=== PATIENT | male | born 1940 | race Caucasian/White ===

== ENCOUNTER 2021-09-13 21:12 | Emergency (ER) | payer MEDICARE, SELFPAY ==
[2021-09-13 21:29] VITALS: BP 155/67; PULSE 67; RESP 16; TEMP 36.1; O2SAT 99; BMI 21.5
[2021-09-13] MEDS: Lidocaine HCl 1 % MPF 5 ML VIAL SUBCUT (22:21)
--- NOTE | 2021-09-13 22:34 | ED.GENADULT ---
HPI - General Adult General Chief complaint: Skin/Abscess/Foreign Body Stated complaint: bleeding on wound wont stop from fall Time Seen by Provider: 09/13/21 21:44 Source: patient and family () Mode of arrival: ambulatory Limitations: no limitations History of Present Illness HPI narrative: 81 years old male history of atrial fibrillation on Eliquis yesterday patient slipped and fell on a wet floor had his left arm on the sink, patient had a tears can with bleeding, patient could not stop the bleeding since yesterday was seen at an urgent care still bleeding through a pressure dressing patient came to the emergency department for further evaluation and stop the bleeding. Patient declined head injury, no headache, no blurry vision, no nausea, no vomiting. Patient still bleeding profusely from it her skin on his left arm. Related Data Allergies Allergy/AdvReac Type Severity Reaction Status Date / Time fluconazole AdvReac Rash Verified 09/13/21 21:29 Review of Systems Review of Systems: All other systems are reviewed and are negative Constitutional: Reports as per HPI and Reports no additional constitutional complaints Eyes: Reports as per HPI and Reports no additional eye complaints Reports system reviewed and no additional complaints, except as documented Cardiovascular: Reports as per HPI and Reports no additional cardiovascular complaints Respiratory: Reports as per HPI and Reports no additional respiratory complaints Gastrointestinal: Reports as per HPI and Reports no additional gastrointestinal complaints Genitourinary: Reports no additional female genitourinary complaints Musculoskeletal: Reports no additional musculoskeletal complaints Skin/Breast: Reports system reviewed and no additional complaints, except as docu Psychiatric: Reports no additional psychiatric complaints Endocrine: Reports no additional endocrine complaints Hematologic/Lymphatic: Reports no additional hematologic/lymphatic complaints Allergic/Immunologic: Reports no additional allergic/immunologic complaints Reports system reviewed and no additional complaints, except as documented and Reports Abnormal speech present [facility] Social History Social History Advance Directives: No Advance Directives Information Provided: No Physical Exam ED Vital Signs: Vital Signs - 24 hr 09/13/21 21:29 Temperature 96.9 F Pulse Rate 67 Respiratory Rate 16 Blood Pressure 155/67 H Pulse Oximetry 99 Oxygen Delivery Method Room Air BMI result Body Mass Index 21.5 Vital signs have been reviewed as appeared to be correct. Blood pressure elevated. Heart rate normal. Respiration rate normal. Temperature normal. Oxygen saturation normal. Appearance: Alert. Oriented X3. No acute distress. Head: Normal external exam. Normocephalic. Atraumatic. No Valdes signs noted. No raccoon eyes noted Eyes: PERRLA. EOMI. Conjunctiva and sclera normal. Eyelids normal. ENT: TM's Normal. Pharynx normal. Uvula midline. Moist mucous membranes. No trismus noted. No drooling noted. No muffled voice noted. Neck: Normal inspection. Neck supple. FROM. No adenopathy. Thyroid Normal. No meningeal signs. No neck mass noted. CVS: Normal heart rate and rhythm. Heart sound normal. No murmurs noted. Pulses normal throughout. Respiratory: No respiratory distress. Painless inspiration. Breath sounds normal. No wheezes/rales/rhonchi noted. Chest nontender. No accessory muscle usage noted or decreased air movement noted. Abdomen: Soft and nontender. Bowel sounds normal in all 4 quadrants. No distention noted. No organomegaly noted. No visible injury noted. Back: No CVA tenderness. Full range of motion noted. Skin: Skin warm and dry. Normal skin color. Normal skin turgor. No rashes/lesions/lacerations noted. Extremities: 1 x 1 cm skin tear with active bleeding on the dorsum aspect of the forearm just distal to the elbow. Neuro: Oriented X 3. Cranial nerve exam: II-XII are grossly intact No motor deficit. No sensory deficit. Reflexes normal. Course Course Course Narrative: 81-year-old male on Eliquis for atrial fibrillation sustained skin tear and active bleeding after day and a half after a mechanical fall, patient was GCS of 15, a normal neuro exam, no evidence of head injury, no signs of intracranial bleed. The left forearm active bleeding was successfully stopped by 1 suture. Patient was instructed to return if there were to his PCP or to the ED for suture removal in 10 days. Procedures Laceration Laceration 1: Site: upper extremity Side (If applicable): left Size (cm): 1 Description: flap Depth: simple, single layer Local Anesthetic: lidocaine 1% Amount of anesthesia used (mL): 3 Pre-repair: wound explored Skin layer closed with: nylon Size (cm): 3-0 Number of sutures: 1 Technique: simple, interrupted Discharge Plan Discharge Clinical Impression: Laceration of forearm, left, Accident due to mechanical fall without injury Patient Disposition: Home, Self-Care Instructions: Laceration (ED) Additional Instructions: Suture removal in 10 days either return to the ED or at the PCP office Referrals: Jem Glynn PA [Primary Care Provider] -
== END 2021-09-13 23:30 | disposition home or self-care (01) ==
PROVIDERS: Emergency Provider Emergency Medicine; PCP Physician Assistant Medical
DX: S51.812A Laceration without foreign body of left forearm, initial encounter (principal); I48.91 Unspecified atrial fibrillation; Z79.01 Long term (current) use of anticoagulants; W01.198A Fall on same level from slipping, tripping and stumbling with subsequent striking against other object, initial encounter; Y93.9 Activity, unspecified; Y92.9 Unspecified place or not applicable; Y99.9 Unspecified external cause status
CPT/HCPCS: 12001; 99282; 99284

== ENCOUNTER 2022-05-15 11:48 | Inpatient (IN) | payer MEDICARE, SELFPAY ==
[2022-05-15] VITALS (7 sets, daily range): BP systolic 115–143; BP diastolic 59–88; PULSE 66–80; RESP 13–24; TEMP 36.1–36.7; O2SAT 78–100; BMI 27.0
--- NOTE | ~2022-05-15 | XR_ITS ---
EXAMINATION: XR CHEST CLINICAL INFORMATION: Follow-up post thoracentesis. COMPARISON: 05/17/2022 TECHNIQUE: Frontal view of the chest was obtained. FINDINGS: Small left pleural effusion with mild left basilar atelectasis. No appreciable right-sided effusion or pneumothorax status post thoracentesis. Underlying airspace consolidation. Cardiac meniscal contours are normal. Pulmonary vasculature is unremarkable. No acute osseous findings. Degenerative spondylosis in the thoracic spine. Osteoarthritis is present in the acromioclavicular and glenohumeral joints. XR/XR chest 1V IMPRESSION: Small left pleural effusion with mild left basilar atelectasis. No pneumothorax.
--- NOTE | ~2022-05-15 | CT_ITS ---
EXAMINATION: CT CHEST WITHOUT CONTRAST CLINICAL INFORMATION: Fluid retention with pleural effusion COMPARISON: CT abdomen and pelvis 09/20/2021 TECHNIQUE: Multidetector volumetric CT imaging of the chest was done. Axial MIP volume rendering provided. Sagittal and coronal reformatted images were obtained. This CT examination was performed using dose optimization techniques as appropriate, variously including the following: *Automated exposure control *Adjustment of mA and/or kV according to patient size (this includes techniques or standardized protocols for targeted exams where dose is matched to indication/reason for exam; i.e. extremities or head) *Use of iterative reconstruction technique DLP: 301 mGy-cm FINDINGS: LUNGS AND PLEURA: Moderate-sized right pleural effusion with compressive atelectasis of the right lower lobe is present along with small to moderate-sized left pleural effusion and left lower lobe atelectasis. No suspicious lung masses are seen. Small calcified granuloma present on the left. MEDIASTINUM: Heart size within normal limits. No pericardial effusion. Some small mediastinal lymph nodes are seen probably reactive with the largest at the AP window measuring 0.9 cm (3:23). No pericardial effusion CORONARY ARTERY CALCIFICATION: Severe triple-vesselr AXILLA: No lymphadenopathy. UPPER ABDOMEN: At least 6 hepatic cysts are present. No bile duct dilatation or worrisome liver masses. A gastrostomy tube is present in good position in the. A partially visualized left renal Bosniak class I cyst is present which needs no additional imaging or follow-up. OSSEOUS STRUCTURES: Unremarkable. Mild degenerative changes throughout. CT/CT chest wo IV con IMPRESSION: Bilateral pleural effusions, right greater than left with associated compressive atelectasis. Fleischner guidelines were followed.
--- NOTE | ~2022-05-15 | XR_ITS ---
EXAMINATION: XR CHEST CLINICAL INFORMATION: Status post right thoracentesis COMPARISON: CT scan of May 15, 2022 TECHNIQUE: AP portable view of the chest was obtained. FINDINGS: No significant right pleural fluid remains. There is minimal blunting of the right costophrenic angle. There is a small left pleural effusion present. No pneumothorax identified. Heart normal size. No evidence of pulmonary edema. XR/XR chest 1V IMPRESSION: No postprocedure pneumothorax status post right thoracentesis. Small left pleural effusion.
--- NOTE | ~2022-05-15 | US_ITS ---
EXAMINATION: ULTRASOUND-GUIDED RIGHT THORACENTESIS CLINICAL INFORMATION: Right pleural effusion COMPARISON: CT scan of May 15, 2022 TECHNIQUE: Ultrasound-guided right thoracentesis FINDINGS: Informed consent was obtained from the patient prior to the procedure. During this process, the procedure and potential alternatives were explained, along with the intended outcome and benefits. The risks of the procedure, as well as the risk of not doing the procedure, were discussed. The patient was given the opportunity to ask questions regarding the procedure and appeared competent to make medical decisions. A signed consent form which documents this discussion was placed in the medical record. Using sterile technique and ultrasound guidance from a posterior approach a 5 [place] Yueh catheter was directed into the right pleural space and a total of 1.6 L of clear yellow fluid removed. Patient tolerated procedure without difficulty. Samples were sent for laboratory studies. US/US thoracentesis IMPRESSION: Right thoracentesis with removal of 1.6 L of clear yellow fluid.
--- NOTE | 2022-05-15 11:58 | ED.GENADULT ---
HPI - General Adult General Chief complaint: General Medical <MOODY Macdonald - Last Filed: 05/15/22 12:13> Stated complaint: fluid in lungs, heart failure <MOODY Macdonald - Last Filed: 05/15/22 12:13> Time Seen by Provider: 05/15/22 12:16 <MOODY Macdonald - Last Filed: 05/15/22 12:13> Source: patient and family () <MOODY Altman - Last Filed: 05/15/22 17:19> Mode of arrival: wheelchair <MOODY Altman - Last Filed: 05/15/22 17:19> Limitations: no limitations <MOODY Altman - Last Filed: 05/15/22 17:19> History of Present Illness HPI narrative: 82 [id number] with pmHx of CHF, Atrial Fibrillation who presents from home c/o sob and weight gain. His spouse reports recent visit with PCP regarding weight gain and SOB d/t heart failure, who ordered chest CT. Called today for concern of pleural effusion and possible need for thoracentesis. Pt endorses SOB and 10 lb weight gain. Denies chest pain, palpitations, fever, recent sick contacts. Patient's states that the patient is not usually on oxygen. Patient's states that the patient is on lasix and eliquis. <MOODY Altman - Last Filed: 05/15/22 17:19> Onset (ago): day(s) <MOODY Altman - Last Filed: 05/15/22 17:19> Severity: moderate <MOODY Altman - Last Filed: 05/15/22 17:19> Severity scale (1-10): 4 <MOODY Altman - Last Filed: 05/15/22 17:19> Relieving factors: none <MOODY Altman - Last Filed: 05/15/22 17:19> Exacerbating factors: none <MOODY Altman - Last Filed: 05/15/22 17:19> Associated symptoms: shortness of breath <MOODY Altman - Last Filed: 05/15/22 17:19> Treatments prior to arrival: none <MOODY Altman - Last Filed: 05/15/22 17:19> Related Data Home medications: Home Medications Medication Instructions Recorded Confirmed apixaban 5 mg tablet (Eliquis) 1 tab PO BID 05/15/22 05/15/22 furosemide 20 mg tablet 1 tab PO DAILY 05/15/22 05/15/22 metformin 500 mg tablet 2 tab PO BID 05/15/22 05/15/22 simvastatin 20 mg tablet 1 tab PO BEDTIME 05/15/22 05/15/22 <MOODY Macdonald - Last Filed: 05/15/22 12:13> Allergies/adverse reactions: Allergies Allergy/AdvReac Type Severity Reaction Status Date / Time fluconazole AdvReac Rash Verified 09/13/21 21:29 <MOODY Macdonald Last Filed: 05/15/22 12:13> Review of Systems Constitutional: Constitutional: Reports no additional constitutional complaints and Reports weight gain <MOODY Altman Last Filed: 05/15/22 17:19> Eyes: Eyes: Reports no additional eye complaints, Denies blurry vision, Denies change in vision, Denies diplopia, Denies eye discharge, Denies loss of vision and Denies eye pain <MOODY Altman Last Filed: 05/15/22 17:19> ENT: Denies dizziness <MOODY Altman Last Filed: 05/15/22 17:19> Cardiovascular: Cardiovascular: Reports no additional cardiovascular complaints, Denies chest pain, Reports leg edema, Denies lightheadedness, Denies Loss of Consciousness and Reports dyspnea <MOODY Altman Last Filed: 05/15/22 17:19> Respiratory: Respiratory: Reports dyspnea <MOODY Altman Last Filed: 05/15/22 17:19> Gastrointestinal: Gastrointestinal: Reports no additional gastrointestinal complaints, Denies abdominal pain, Denies melena, Denies hematochezia, Denies change in bowel habits and Denies change in stool character <MOODY Altman Last Filed: 05/15/22 17:19> Genitourinary: Genitourinary: Reports no additional male genitourinary complaints, Denies hematuria, Denies oliguria, Denies difficulty urinating, Denies dysuria, Denies urinary frequency, Denies urinary hesitancy, Denies urinary incontinence and Denies urinary urgency <MOODY Altman - Last Filed: 05/15/22 17:19> Musculoskeletal: Musculoskeletal: Reports no additional musculoskeletal complaints, Denies numbness and Denies tingling <MOODY Altman - Last Filed: 05/15/22 17:19> Neurologic: Denies dizziness, Denies loss of vision, Denies numbness and Denies tingling <MOODY Altman - Last Filed: 05/15/22 17:19> Psychiatric: Psychiatric: Reports no additional psychiatric complaints <MOODY Altman - Last Filed: 05/15/22 17:19> Endocrine: Endocrine: Reports no additional endocrine complaints <MOODY Altman - Last Filed: 05/15/22 17:19> Hematologic/Lymphatic: Hematologic/Lymphatic: Reports no additional hematologic/lymphatic complaints <MOODY Altman - Last Filed: 05/15/22 17:19> Allergic/Immunologic: Allergic/Immunologic: Reports no additional allergic/immunologic complaints <MOODY Altman - Last Filed: 05/15/22 17:19> [facility] Past Medical History Attestation statement: The following information was validated with the patient. (all information validated with the patient's ) <MOODY Altman - Last Filed: 05/15/22 17:19> Source: old records reviewed, obtained from family (patient's ) and nursing notes reviewed <MOODY Altman - Last Filed: 05/15/22 17:19> Medical History: Medical History Atrial fibrillation Diabetes mellitus Hyperlipidemia Throat cancer <MOODY Macdonald - Last Filed: 05/15/22 12:13> Surgical History: Surgical History Gastrostomy in place <MOODY Macdonald - Last Filed: 05/15/22 12:13> Social History Social History: Social History Alcohol intake: unknown Smoked in Last 30 Days: No Advance Directives: No <MOODY Macdonald - Last Filed: 05/15/22 12:13> Physical Exam ED Vital Signs: Vital Signs - 24 hr 05/15/22 11:57 05/15/22 12:17 05/15/22 15:16 Temperature 97.0 F Pulse Rate 66 72 66 Respiratory Rate 20 24 H 18 Blood Pressure 122/62 143/72 H 125/65 Pulse Oximetry 78 L 100 98 Oxygen Delivery Method Room Air Nasal Cannula Nasal Cannula Oxygen Flow Rate 5 2 BMI result Body Mass Index 27.0 <MOODY Macdonald - Last Filed: 05/15/22 12:13> Vital Signs - 24 hr 05/15/22 11:57 05/15/22 12:17 05/15/22 15:16 Temperature 97.0 F Pulse Rate 66 72 66 Respiratory Rate 20 24 H 18 Blood Pressure 122/62 143/72 H 125/65 Pulse Oximetry 78 L 100 98 Oxygen Delivery Method Room Air Nasal Cannula Nasal Cannula Oxygen Flow Rate 5 2 BMI result Body Mass Index 27.0 <MOODY Altman - Last Filed: 05/15/22 17:19> Const General: cooperative, no acute distress, alert and awake <MOODY Altman - Last Filed: 05/15/22 17:19> Nutritional Appearance: well nourished <MOODY Altman - Last Filed: 05/15/22 17:19> Orientation/consciousness: patient oriented x3 <MOODY Altman - Last Filed: 05/15/22 17:19> Limitations: no limitations <MOODY Altman - Last Filed: 05/15/22 17:19> HENNC Head: Yes normal to inspection and Yes atraumatic <MOODY Altman - Last Filed: 05/15/22 17:19> Ears: hearing grossly normal bilaterally and external ears normal <MOODY Altman - Last Filed: 05/15/22 17:19> General nose exam: Normal external nose present, no nasal discharge noted and no epistaxis <MOODY Altman - Last Filed: 05/15/22 17:19> Face and sinus: Yes normal facial exam, No abrasion and No laceration <MOODY Altman - Last Filed: 05/15/22 17:19> Mouth: Normal oral and palatal mucosa present, no drooling and no muffled voice <Gretel Finnegan [place] - Last Filed: 05/15/22 17:19> Eyes General: appearance normal, both eyes and all related structures <Gretel Finnegan SD - Last Filed: 05/15/22 17:19> Periorbital: periorbital findings normal <Gretel Finnegan SD - Last Filed: 05/15/22 17:19> Eyelids: Yes eyelids normal <Gretel Finnegan SD - Last Filed: 05/15/22 17:19> Conjunctivae: conjunctivae normal <Gretel Finnegan SD - Last Filed: 05/15/22 17:19> Pupils: Equal, round and reactive pupils present <Gretel Finnegan SD - Last Filed: 05/15/22 17:19> EOM: EOMs intact bilaterally <Gretel Finnegan SD - Last Filed: 05/15/22 17:19> Neck Neck: Yes normal visual inspection, Yes full ROM and Yes no lymphadenopathy <Gretel Finnegan SD - Last Filed: 05/15/22 17:19> Chest Chest palpation & inspection: normal inspection of the chest <Gretel Finnegan [facility] Last Filed: 05/15/22 17:19> Resp Effort & Inspection: normal respiratory effort and able to speak in complete sentences <Gretel Finnegan SD - Last Filed: 05/15/22 17:19> Auscultation: diminished lung sounds on the left and bronchial breath sounds on the right <Gretel Finnegan SD - Last Filed: 05/15/22 17:19> Cardio Palpation: normal PMI <Gretel Finnegan SD - Last Filed: 05/15/22 17:19> Rate: regular rate <Gretel Finnegan SD - Last Filed: 05/15/22 17:19> GI Inspection: Yes normal to inspection <Gretel Finnegan [facility] Last Filed: 05/15/22 17:19> Palpation (GI): Soft to palpation, not firm, nontender, no guarding and not rigid <Gretel Finnegan [place] - Last Filed: 05/15/22 17:19> General: Yes no CVA tenderness <Gretel Finnegan SD - Last Filed: 05/15/22 17:19> Back/Spine/Pelvis Back: no CVA tenderness <Gretel Perealuis f PA - Last Filed: 05/15/22 17:19> Cervical Spine: normal cervical lordosis and cervical ROM normal <Gretel Perealuis f PA - Last Filed: 05/15/22 17:19> Thoracic/Lumbar Spine: thoracic and lumbar spine normal to inspection <Gretel Finnegan PA - Last Filed: 05/15/22 17:19> Neuro General: patient oriented x3 and moves all extremities <Gretel Perealuis f PA - Last Filed: 05/15/22 17:19> Cranial nerves: Yes Equal, round and reactive pupils present <Gretel Perealuis f PA - Last Filed: 05/15/22 17:19> Cognition (Neuro): normal cognition <Gretel Perealuis f PA - Last Filed: 05/15/22 17:19> Motor exam (neuro): 5/5 motor strength present throughout <Gretel Perealuis f PA - Last Filed: 05/15/22 17:19> Sensory Exam: Normal double simultaneous stimulation for sensation <Greetl Perealuis f PA - Last Filed: 05/15/22 17:19> Coordination: [id number] test normal <Gretel Perealuis f PA - Last Filed: 05/15/22 17:19> Extrem General: Yes full ROM and Yes capillary refill normal <Gretel Perealuis f PA - Last Filed: 05/15/22 17:19> Right upper extremity: edema <Gretel Perealuis f PA - Last Filed: 05/15/22 17:19> Left upper extremity: edema <Gretel Perealuis f PA - Last Filed: 05/15/22 17:19> Psych Appearance: grossly normal <Gretel Perealuis f PA - Last Filed: 05/15/22 17:19> Mental Status: mental status grossly normal <Gretel Perealuis f PA - Last Filed: 05/15/22 17:19> Affect: normal affect <Gretel Perealuis f PA - Last Filed: 05/15/22 17:19> Attitude: cooperative <Gretel Perealuis f PA - Last Filed: 05/15/22 17:19> Thought process: Normal thought process present <Gretel Sivan PA - Last Filed: 05/15/22 17:19> Thought content: Normal thought content present <MOODY Altman - Last Filed: 05/15/22 17:19> Insight: Good insight present (Psych) <MOODY Altman - Last Filed: 05/15/22 17:19> Course Course Course Narrative: RME: 82 y/o M, hx of throat cancer s/p radiation in 2015, dysphasia s/p PEG, hx of aspiration pneumonia in Mar 2022, ramesh juarez on Eliis presents for evaluation of large right lung effusion, worsening ALEXANDER and weight gain (30lbs in 2 months). Reported BNP was 1000, already on oral lasix. [place] is supposed to send over CT scan that was performed yesterday. Diminished lung sounds. O2 sat 78% on RA, but appears well in no acute distress. 3+ pitting edema to BLE. Labs, chest x-ray, and EKG ordered. Patient transferred into the main ED for further treatment. Anticipated admission. <MOODY Macdonald - Last Filed: 05/15/22 12:13> Medications Administered Generic Name Dose Route Start Last Admin Trade Name Freq PRN Reason Stop Dose Admin Insulin Human Lispro 0 unit 05/15/22 16:30 05/15/22 16:12 Insulin Lispro 100 Unit/Ml 3 Ml Vial SUBCUT Not Given QIDACHS [facility] Protocol Discontinued Medications Generic Name Dose Route Start Last Admin Trade Name Freq PRN Reason Stop Dose Admin Furosemide 80 mg 05/15/22 12:37 05/15/22 13:06 Furosemide 100 Mg/10 Ml Vial IVPUSH 05/15/22 12:38 80 mg ONCE ONE Administration Protocol <MOODY Macdonald - Last Filed: 05/15/22 12:13> Medications Administered Generic Name Dose Route Start Last Admin Trade Name Freq PRN Reason Stop Dose Admin Insulin Human Lispro 0 unit 05/15/22 16:30 05/15/22 16:12 Insulin Lispro 100 Unit/Ml 3 Ml Vial SUBCUT Not Given QIDACHS [facility] Protocol Discontinued Medications Generic Name Dose Route Start Last Admin Trade Name Freq PRN Reason Stop Dose Admin Furosemide 80 mg 05/15/22 12:37 05/15/22 13:06 Furosemide 100 Mg/10 Ml Vial IVPUSH 05/15/22 12:38 80 mg ONCE ONE Administration Protocol <MOODY Altman - Last Filed: 05/15/22 17:19> Medical Decision Making Medical Decision Making [facility] Narrative: Patient is an 82 year old assigned male at with a history of atrial fib on eliquis and throat cancer presenting to the emergency department today with weight gain and shortness of breath. Patient's physical exam showed edema, dyspnea, and bilateral decreased breath sounds bilaterally. Patient was intitially at 76% on room air and was placed on 5 liters of oxygen via nasal cannula which increased his saturation to 100%. Patient's blood work showed an elevated potassium of 5.5, CR of 1.62, BNP of 1,365, and an initial trop of 27.1 with a repeat of 30.4. Patient's EKG was unremarkable. Patient's chest CT showed bilateral pleural effusions. Patient was given IV lasix. I spoke to the hospitalist team who agreed to admission. I explained my physical exam findings as well as all test results to the patient and the patient's . I answered all questions asked by the patient and the patient's . Patient and the patient's verbalized agreement and understanding with this treatment plan and admission. <MOODY Altman - Last Filed: 05/15/22 17:19> Differential Diagnosis Differential Diagnoses: The differential diagnosis associated with the presentation includes <MOODY Altman - Last Filed: 05/15/22 17:19> CHF exacerbation <MOODY Altman - Last Filed: 05/15/22 17:19> Consult Healthcare Provider Management of the patient was discussed with: Hospitalist (agreed to admission) <MOODY Altman - Last Filed: 05/15/22 17:19> Lab Data [facility] Lab Attestation statement: I reviewed the patient's lab results. <MOODY Altman - Last Filed: 05/15/22 17:19> Result Diagrams: 05/15/22 12:26 05/15/22 12:26 <MOODY Macdonald - Last Filed: 05/15/22 12:13> Labs: Lab Results 05/15/22 05/15/22 05/15/22 Range/Units 12:26 12:26 12:26 WBC 5.3 (4.8-10.8) X10*3/uL RBC 4.58 L (4.60-5.80) X10*6/uL Hgb 12.5 L (14.0-18.0) g/dl Hct 42.6 (42.0-52.0) % MCV 93.0 (80.0-98.0) fL MCH 27.3 (27.0-33.0) pg MCHC 29.3 L (31.0-36.0) g/dl RDW 17.8 H (11.0-16.0) % Plt Count 279 (160-400) X10*3/uL MPV 11.7 (9.4-12.4) fL Immature Gran % (Auto) 0.4 (0.0-0.4) % Neut % (Auto) 83.5 H (45-73) % Lymph % (Auto) 5.3 L (20-40) % [place] % (Auto) 9.8 (2-11) % Eos % (Auto) 0.6 (0-4) % Baso % (Auto) 0.4 (0-2) % Lymph # (Auto) 0.3 L (1.2-4.9) X10*3/uL [place] # (Auto) 0.5 (0.1-1.2) X10*3/uL Eos # (Auto) 0.0 (0.0-0.4) X10*3/uL Baso # (Auto) 0.0 (0.0-0.2) X10*3/uL Abs Immat Gran (auto) 0.02 (0.00-0.03) X10*3/uL Absolute Neuts (auto) 4.5 (2.0-8.3) x10*3/uL Absolute Nucleated RBC 0.000 (0.0-0.012) X10*3/uL Nucleated RBC % (auto) 0.0 (0.0-0.2) /100WBC PT (10.0-13.1) SEC INR (0.9-1.1) APTT (26.0-36.4) SEC VBG pH (7.32-7.43) VBG pCO2 mmHg VBG pO2 mmHg VBG HCO3 (22-26) mmol/L VBG O2 Saturation % VBG Base Excess mmol/L Sodium (135-145) mmol/L Potassium (3.3-5.1) mmol/L Chloride (96-108) mmol/L Carbon Dioxide (22-29) mmol/L Anion Gap (12-20) BUN (9-16) mg/dL Creatinine (0.5-1.4) mg/dL Estim Creat Clear Calc Estimated GFR Random Glucose (60-115) mg/dL Calcium (8.4-10.2) mg/dL Magnesium (1.6-2.6) mg/dL Total Bilirubin (0.0-1.0) mg/dL Direct Bilirubin (0.0-0.5) mg/dL AST (5-37) U/L ALT (0-40) U/L Alkaline Phosphatase (39-117) U/L Troponin I High Sens (<3.5-35.0) ng/L B-Natriuretic Peptide 1365 H (<100) pg/mL Total Protein (6.5-8.0) g/dL Albumin (3.5-5.0) g/dL COVID-19 (VIRGIL) Negative (Negative) COVID-19 Clin Com See Note 05/15/22 05/15/22 05/15/22 Range/Units 12:26 12:26 12:39 WBC (4.8-10.8) X10*3/uL RBC (4.60-5.80) X10*6/uL Hgb (14.0-18.0) g/dl Hct (42.0-52.0) % MCV (80.0-98.0) fL MCH (27.0-33.0) pg MCHC (31.0-36.0) g/dl RDW (11.0-16.0) % Plt Count (160-400) X10*3/uL MPV (9.4-12.4) fL Immature Gran % (Auto) (0.0-0.4) % Neut % (Auto) (45-73) % Lymph % (Auto) (20-40) % [place] % (Auto) (2-11) % Eos % (Auto) (0-4) % Baso % (Auto) (0-2) % Lymph # (Auto) (1.2-4.9) X10*3/uL [place] # (Auto) (0.1-1.2) X10*3/uL Eos # (Auto) (0.0-0.4) X10*3/uL Baso # (Auto) (0.0-0.2) X10*3/uL Abs Immat Gran (auto) (0.00-0.03) X10*3/uL Absolute Neuts (auto) (2.0-8.3) x10*3/uL Absolute Nucleated RBC (0.0-0.012) X10*3/uL Nucleated RBC % (auto) (0.0-0.2) /100WBC PT 20.7 H (10.0-13.1) SEC INR 1.8 H (0.9-1.1) APTT 34.6 (26.0-36.4) SEC VBG pH (7.32-7.43) VBG pCO2 mmHg VBG pO2 mmHg VBG HCO3 (22-26) mmol/L VBG O2 Saturation % VBG Base Excess mmol/L Sodium (135-145) mmol/L Potassium (3.3-5.1) mmol/L Chloride (96-108) mmol/L Carbon Dioxide (22-29) mmol/L Anion Gap (12-20) BUN (9-16) mg/dL Creatinine (0.5-1.4) mg/dL Estim Creat Clear Calc Estimated GFR Random Glucose (60-115) mg/dL Calcium (8.4-10.2) mg/dL Magnesium (1.6-2.6) mg/dL Total Bilirubin (0.0-1.0) mg/dL Direct Bilirubin (0.0-0.5) mg/dL AST (5-37) U/L ALT (0-40) U/L Alkaline Phosphatase (39-117) U/L Troponin I High Sens 27.1 (<3.5-35.0) ng/L B-Natriuretic Peptide (<100) pg/mL Total Protein (6.5-8.0) g/dL Albumin (3.5-5.0) g/dL COVID-19 (VIRGIL) (Negative) COVID-19 Clin Com 05/15/22 05/15/22 05/15/22 Range/Units 12:44 13:04 14:15 WBC (4.8-10.8) X10*3/uL RBC (4.60-5.80) X10*6/uL Hgb (14.0-18.0) g/dl Hct (42.0-52.0) % MCV (80.0-98.0) fL MCH (27.0-33.0) pg MCHC (31.0-36.0) g/dl RDW (11.0-16.0) % Plt Count (160-400) X10*3/uL MPV (9.4-12.4) fL Immature Gran % (Auto) (0.0-0.4) % Neut % (Auto) (45-73) % Lymph % (Auto) (20-40) % [place] % (Auto) (2-11) % Eos % (Auto) (0-4) % Baso % (Auto) (0-2) % Lymph # (Auto) (1.2-4.9) X10*3/uL [place] # (Auto) (0.1-1.2) X10*3/uL Eos # (Auto) (0.0-0.4) X10*3/uL Baso # (Auto) (0.0-0.2) X10*3/uL Abs Immat Gran (auto) (0.00-0.03) X10*3/uL Absolute Neuts (auto) (2.0-8.3) x10*3/uL Absolute Nucleated RBC (0.0-0.012) X10*3/uL Nucleated RBC % (auto) (0.0-0.2) /100WBC PT (10.0-13.1) SEC INR (0.9-1.1) APTT (26.0-36.4) SEC VBG pH 7.44 H (7.32-7.43) VBG pCO2 49 mmHg VBG pO2 47 mmHg VBG HCO3 34 H (22-26) mmol/L VBG O2 Saturation 69.0 % VBG Base Excess 8.7 mmol/L Sodium 135 (135-145) mmol/L Potassium 5.5 H (3.3-5.1) mmol/L Chloride 92 L (96-108) mmol/L Carbon Dioxide 31 H (22-29) mmol/L Anion Gap 18 (12-20) BUN 70 H (9-16) mg/dL Creatinine 1.62 H (0.5-1.4) mg/dL Estim Creat Clear Calc 35.6 Estimated GFR 41 Random Glucose 158 H (60-115) mg/dL Calcium 8.8 (8.4-10.2) mg/dL Magnesium 1.9 (1.6-2.6) mg/dL Total Bilirubin 1.1 H (0.0-1.0) mg/dL Direct Bilirubin 0.5 (0.0-0.5) mg/dL AST 20 (5-37) U/L ALT 13 (0-40) U/L Alkaline Phosphatase 88 (39-117) U/L Troponin I High Sens 30.4 (<3.5-35.0) ng/L B-Natriuretic Peptide (<100) pg/mL Total Protein 6.1 L (6.5-8.0) g/dL Albumin 3.0 L (3.5-5.0) g/dL COVID-19 (VIRGIL) (Negative) COVID-19 Clin Com <MOODY Macdonald - Last Filed: 05/15/22 12:13> Lab Results 05/15/22 05/15/22 05/15/22 Range/Units 12:26 12:26 12:26 WBC 5.3 (4.8-10.8) X10*3/uL RBC 4.58 L (4.60-5.80) X10*6/uL Hgb 12.5 L (14.0-18.0) g/dl Hct 42.6 (42.0-52.0) % MCV 93.0 (80.0-98.0) fL MCH 27.3 (27.0-33.0) pg MCHC 29.3 L (31.0-36.0) g/dl RDW 17.8 H (11.0-16.0) % Plt Count 279 (160-400) X10*3/uL MPV 11.7 (9.4-12.4) fL Immature Gran % (Auto) 0.4 (0.0-0.4) % Neut % (Auto) 83.5 H (45-73) % Lymph % (Auto) 5.3 L (20-40) % [place] % (Auto) 9.8 (2-11) % Eos % (Auto) 0.6 (0-4) % Baso % (Auto) 0.4 (0-2) % Lymph # (Auto) 0.3 L (1.2-4.9) X10*3/uL [place] # (Auto) 0.5 (0.1-1.2) X10*3/uL Eos # (Auto) 0.0 (0.0-0.4) X10*3/uL Baso # (Auto) 0.0 (0.0-0.2) X10*3/uL Abs Immat Gran (auto) 0.02 (0.00-0.03) X10*3/uL Absolute Neuts (auto) 4.5 (2.0-8.3) x10*3/uL Absolute Nucleated RBC 0.000 (0.0-0.012) X10*3/uL Nucleated RBC % (auto) 0.0 (0.0-0.2) /100WBC PT (10.0-13.1) SEC INR (0.9-1.1) APTT (26.0-36.4) SEC VBG pH (7.32-7.43) VBG pCO2 mmHg VBG pO2 mmHg VBG HCO3 (22-26) mmol/L VBG O2 Saturation % VBG Base Excess mmol/L Sodium (135-145) mmol/L Potassium (3.3-5.1) mmol/L Chloride (96-108) mmol/L Carbon Dioxide (22-29) mmol/L Anion Gap (12-20) BUN (9-16) mg/dL Creatinine (0.5-1.4) mg/dL Estim Creat Clear Calc Estimated GFR Random Glucose (60-115) mg/dL Calcium (8.4-10.2) mg/dL Magnesium (1.6-2.6) mg/dL Total Bilirubin (0.0-1.0) mg/dL Direct Bilirubin (0.0-0.5) mg/dL AST (5-37) U/L ALT (0-40) U/L Alkaline Phosphatase (39-117) U/L Troponin I High Sens (<3.5-35.0) ng/L B-Natriuretic Peptide 1365 H (<100) pg/mL Total Protein (6.5-8.0) g/dL Albumin (3.5-5.0) g/dL COVID-19 (VIRGIL) Negative (Negative) COVID-19 Clin Com See Note 05/15/22 05/15/22 05/15/22 Range/Units 12:26 12:26 12:39 WBC (4.8-10.8) X10*3/uL RBC (4.60-5.80) X10*6/uL Hgb (14.0-18.0) g/dl Hct (42.0-52.0) % MCV (80.0-98.0) fL MCH (27.0-33.0) pg MCHC (31.0-36.0) g/dl RDW (11.0-16.0) % Plt Count (160-400) X10*3/uL MPV (9.4-12.4) fL Immature Gran % (Auto) (0.0-0.4) % Neut % (Auto) (45-73) % Lymph % (Auto) (20-40) % [place] % (Auto) (2-11) % Eos % (Auto) (0-4) % Baso % (Auto) (0-2) % Lymph # (Auto) (1.2-4.9) X10*3/uL [place] # (Auto) (0.1-1.2) X10*3/uL Eos # (Auto) (0.0-0.4) X10*3/uL Baso # (Auto) (0.0-0.2) X10*3/uL Abs Immat Gran (auto) (0.00-0.03) X10*3/uL Absolute Neuts (auto) (2.0-8.3) x10*3/uL Absolute Nucleated RBC (0.0-0.012) X10*3/uL Nucleated RBC % (auto) (0.0-0.2) /100WBC PT 20.7 H (10.0-13.1) SEC INR 1.8 H (0.9-1.1) APTT 34.6 (26.0-36.4) SEC VBG pH (7.32-7.43) VBG pCO2 mmHg VBG pO2 mmHg VBG HCO3 (22-26) mmol/L VBG O2 Saturation % VBG Base Excess mmol/L Sodium (135-145) mmol/L Potassium (3.3-5.1) mmol/L Chloride (96-108) mmol/L Carbon Dioxide (22-29) mmol/L Anion Gap (12-20) BUN (9-16) mg/dL Creatinine (0.5-1.4) mg/dL Estim Creat Clear Calc Estimated GFR Random Glucose (60-115) mg/dL Calcium (8.4-10.2) mg/dL Magnesium (1.6-2.6) mg/dL Total Bilirubin (0.0-1.0) mg/dL Direct Bilirubin (0.0-0.5) mg/dL AST (5-37) U/L ALT (0-40) U/L Alkaline Phosphatase (39-117) U/L Troponin I High Sens 27.1 (<3.5-35.0) ng/L B-Natriuretic Peptide (<100) pg/mL Total Protein (6.5-8.0) g/dL Albumin (3.5-5.0) g/dL COVID-19 (VIRGIL) (Negative) COVID-19 Clin Com 05/15/22 05/15/22 05/15/22 Range/Units 12:44 13:04 14:15 WBC (4.8-10.8) X10*3/uL RBC (4.60-5.80) X10*6/uL Hgb (14.0-18.0) g/dl Hct (42.0-52.0) % MCV (80.0-98.0) fL MCH (27.0-33.0) pg MCHC (31.0-36.0) g/dl RDW (11.0-16.0) % Plt Count (160-400) X10*3/uL MPV (9.4-12.4) fL Immature Gran % (Auto) (0.0-0.4) % Neut % (Auto) (45-73) % Lymph % (Auto) (20-40) % [place] % (Auto) (2-11) % Eos % (Auto) (0-4) % Baso % (Auto) (0-2) % Lymph # (Auto) (1.2-4.9) X10*3/uL [place] # (Auto) (0.1-1.2) X10*3/uL Eos # (Auto) (0.0-0.4) X10*3/uL Baso # (Auto) (0.0-0.2) X10*3/uL Abs Immat Gran (auto) (0.00-0.03) X10*3/uL Absolute Neuts (auto) (2.0-8.3) x10*3/uL Absolute Nucleated RBC (0.0-0.012) X10*3/uL Nucleated RBC % (auto) (0.0-0.2) /100WBC PT (10.0-13.1) SEC INR (0.9-1.1) APTT (26.0-36.4) SEC VBG pH 7.44 H (7.32-7.43) VBG pCO2 49 mmHg VBG pO2 47 mmHg VBG HCO3 34 H (22-26) mmol/L VBG O2 Saturation 69.0 % VBG Base Excess 8.7 mmol/L Sodium 135 (135-145) mmol/L Potassium 5.5 H (3.3-5.1) mmol/L Chloride 92 L (96-108) mmol/L Carbon Dioxide 31 H (22-29) mmol/L Anion Gap 18 (12-20) BUN 70 H (9-16) mg/dL Creatinine 1.62 H (0.5-1.4) mg/dL Estim Creat Clear Calc 35.6 Estimated GFR 41 Random Glucose 158 H (60-115) mg/dL Calcium 8.8 (8.4-10.2) mg/dL Magnesium 1.9 (1.6-2.6) mg/dL Total Bilirubin 1.1 H (0.0-1.0) mg/dL Direct Bilirubin 0.5 (0.0-0.5) mg/dL AST 20 (5-37) U/L ALT 13 (0-40) U/L Alkaline Phosphatase 88 (39-117) U/L Troponin I High Sens 30.4 (<3.5-35.0) ng/L B-Natriuretic Peptide (<100) pg/mL Total Protein 6.1 L (6.5-8.0) g/dL Albumin 3.0 L (3.5-5.0) g/dL COVID-19 (VIRGIL) (Negative) COVID-19 Clin Com <MOODY Altman - Last Filed: 05/15/22 17:19> Independent Interpretation I performed an independent interpretation of an: EKG <MOODY Altman - Last Filed: 05/15/22 17:19> Interpretation: Vent. Rate: 065 BPM ? ? Atrial Rate: 000 BPM P-R Int: 000 ms? QRS Dur: 076 ms QT Int: 492 ms ? ? ? P-R-T Axes: 000 020 -42 degrees QTc Int: 511 ms ? Atrial fibrillation Low voltage QRS Septal infarct , age undetermined T wave abnormality, consider inferior ischemia , anterior ischemia Prolonged QT Abnormal ECG No previous ECGs available ? Electronically Signed By:RUBÉN VIVAS Dictated By: Rubén Vivas MD 05/15/22 [id number] <MOODY Altman - Last Filed: 05/15/22 17:19> Radiology Impression Radiologist Impression: My interpretation is in agreement with the radiologist's impression of this imaging study. EXAMINATION: CT CHEST WITHOUT CONTRAST CLINICAL INFORMATION: Fluid retention with pleural effusion? COMPARISON: CT abdomen and pelvis 09/20/2021? TECHNIQUE: Multidetector volumetric CT imaging of the chest was done. Axial MIP volume rendering provided. Sagittal and coronal reformatted images were obtained.? This CT examination was performed using dose optimization techniques as appropriate, variously including the following: *Automated exposure control *Adjustment of mA and/or kV according to patient size (this includes techniques or standardized protocols for targeted exams where dose is matched to indication/reason for exam; i.e. extremities or head) *Use of iterative reconstruction technique DLP: 301 mGy-cm FINDINGS: LUNGS AND PLEURA: Moderate-sized right pleural effusion with compressive atelectasis of the right lower lobe is present along with small to moderate-sized left pleural effusion and left lower lobe atelectasis. No suspicious lung masses are seen. Small calcified granuloma present on the left. MEDIASTINUM: Heart size within normal limits. No pericardial effusion. Some small mediastinal lymph nodes are seen probably reactive with the largest at the AP window measuring 0.9 cm (3:23). No pericardial effusion CORONARY ARTERY CALCIFICATION: Severe triple-vesselr AXILLA: No lymphadenopathy.? UPPER ABDOMEN: At least 6 hepatic cysts are present. No bile duct dilatation or worrisome liver masses. A gastrostomy tube is present in good position in the. A partially visualized left renal Bosniak class I cyst is present which needs no additional imaging or follow-up. OSSEOUS STRUCTURES: Unremarkable. Mild degenerative changes throughout. CT/CT chest wo IV con IMPRESSION: Bilateral pleural effusions, right greater than left with associated compressive atelectasis. ? Fleischner guidelines were followed. Dictated By: Ricky Mccarty MD Signed By: Electronically signed by Ricky Mccarty MD 05/15/22 141 <MOODY Altman - Last Filed: 05/15/22 17:19> Independent Historian Clinical information obtained from an independent historian. History obtained from or confirmed by: Spouse (patient's ) <MOODY Altman Last Filed: 05/15/22 17:19> Critical Care Time Critical Care Time Critical Care Time: Yes <MOODY Altman Last Filed: 05/15/22 17:19> Total Critical Care Time: 45 <MOODY Altman Last Filed: 05/15/22 17:19> Attestation: I spent 45 minutes of Critical Care Time with this patient. This does not include time spent on separately reported billable procedures. <MOODY Altman Last Filed: 05/15/22 17:19> Discharge Plan Discharge Clinical Impression: CHF (congestive heart failure), Hypoxia <MOODY Macdonald Last Filed: 05/15/22 12:13> Patient Disposition: Admitted As Inpatient <MOODY Macdonald Filed: 05/15/22 12:13>
--- NOTE | 2022-05-15 12:03 | ECG_ITS ---
Test Reason : SOB Blood Pressure : / mmHG Vent. Rate : 065 BPM Atrial Rate : 000 BPM P-R Int : 000 ms QRS Dur : 076 ms QT Int : 492 ms P-R-T Axes : 000 020 -42 degrees QTc Int : 511 ms Atrial fibrillation Low voltage QRS Septal infarct , age undetermined T wave abnormality, consider inferior ischemia , anterior ischemia Prolonged QT Abnormal ECG No previous ECGs available Referred By: Nano Jacome Electronically Signed By:TAWANDA VIVAS
[2022-05-15 12:31] LABS: MANUAL DIFF FLAG NO
--- NOTE | 2022-05-15 12:32 | PC.NURSE ---
Patient presents to ED with hypoxia suspected chf exacerbation has history of CHF LS diminished on left but clear, AOx 4 neuros intact no distress noted. Placed on 5 L of O2 by nasal cannula with good effect. PAtient has history of throat cancer g tube in place. Sinus tach on school bus monitor. IV access obtained labs collected and sent. at bedside will CTM
[2022-05-15 12:34] LABS: Basophils Percent Auto 0.4 % (0-2); Eosinophils Percent Auto 0.6 % (0-4); Hematocrit 42.6 % (42.0-52.0); Hemoglobin 12.5 g/dl (14.0-18.0); Imm Gran Abs Auto 0.02 X10*3/uL (0.00-0.03); Imm Gran Pct Auto 0.4 % (0.0-0.4); Lymphocytes Absolute Auto 0.3 X10*3/uL (1.2-4.9); Lymphocytes Percent Auto 5.3 % (20-40); Mean Corpuscular HGB Conc 29.3 g/dl (31.0-36.0); Mean Corpuscular Hemoglobin 27.3 pg (27.0-33.0); Mean Platelet Volume 11.7 fL (9.4-12.4); Monocytes Absolute Auto 0.5 X10*3/uL (0.1-1.2); Monocytes Percent Auto 9.8 % (2-11); Neutrophils Absolute Auto 4.5 x10*3/uL (2.0-8.3); Neutrophils Percent Auto 83.5 % (45-73); Platelet Count 279 X10*3/uL (160-400); Red Blood Count 4.58 X10*6/uL (4.60-5.80); Red Cell Distribution Width 17.8 % (11.0-16.0); White Blood Count 5.3 X10*3/uL (4.8-10.8)
[2022-05-15 12:39] LABS: INTERNATIONAL NORM RATIO 1.8 (0.9-1.1); Prothrombin Time 20.7 SEC (10.0-13.1)
[2022-05-15 12:42] LABS: Partial Thromboplastin Time 34.6 SEC (26.0-36.4)
--- NOTE | 2022-05-15 12:42 | PC.NURSE ---
RT at bedside O2 reduced to 4 L will CTM
[2022-05-15 12:47] LABS: COVID-19 Test Negative (Negative); IDNOW Serial# 16C4AD1C
[2022-05-15 12:49] LABS: Venous Blood Gas Refer to POC result
[2022-05-15 12:51] LABS: VBG Base Excess 8.7 mmol/L; VBG HCO3 34 mmol/L (22-26); VBG pCO2 49 mmHg; VBG pH 7.44 (7.32-7.43); VBG pO2 47 mmHg
[2022-05-15 12:52] LABS: B Type Natriuretic Peptide 1365 pg/mL (<100)
[2022-05-15] MEDS: Furosemide 100 MG/10 ML VIAL 80 MG IVPUSH (13:06)
[2022-05-15 13:18] LABS: Troponin-I High Sensitivity 27.1 ng/L (<3.5-35.0)
[2022-05-15 13:46] LABS: Alanine Aminotransferase 13 U/L (0-40); Alkaline Phosphatase 88 U/L (39-117); Anion Gap 18 (12-20); Aspartate Amino Transferase 20 U/L (5-37); Bilirubin Direct 0.5 mg/dL (0.0-0.5); Bilirubin Total 1.1 mg/dL (0.0-1.0); Blood Urea Nitrogen 70 mg/dL (9-16); Calcium 8.8 mg/dL (8.4-10.2); Carbon Dioxide 31 mmol/L (22-29); Chloride 92 mmol/L (96-108); Creatinine Clr Calc Pharmacy 35.6; Estimated Glomerular Filt Rate 41; Glucose Random 158 mg/dL (60-115); Magnesium 1.9 mg/dL (1.6-2.6); Potassium 5.5 mmol/L (3.3-5.1); Sodium 135 mmol/L (135-145); Total Protein 6.1 g/dL (6.5-8.0)
--- NOTE | 2022-05-15 14:11 | PHA.MEDREC ---
Pharmacy Consult ? Medication Reconciliation Pharmacy has completed the medication reconciliation. Patients stated that he isn't really taking the lasix anymoreas it was hard to manage the increase in urinary frequency.
[2022-05-15 14:45] LABS: Troponin-I High Sensitivity 30.4 ng/L (<3.5-35.0)
--- NOTE | 2022-05-15 15:52 | P.HPHOSP_ITS ---
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 patient reports 30lbs weight gain over 1 month, increasing lower extremity edema, abd bloating. sob worse on exertion, denies orthopnea, denies chest pain. underwent CT chest which showed large right pleural effusion and told to go to ED. in ED found to be hypoxic to 70s, lindsay - creat 1.62, mild hyperkalemia 5.5, bnp 1365. ct chest with bilateral pleural effusions, r>L with compressive atelectasis, was given lasix and weaned down to 2L NC. Review of Systems Review of Systems: Yes all other systems are reviewed and are negative [facility] Medical History Atrial fibrillation Diabetes mellitus Hyperlipidemia Throat cancer Surgical History Gastrostomy in place Social History Alcohol intake: unknown Smoked in Last 30 Days: No Advance Directives: No Meds Allergies Allergy/AdvReac Type Severity Reaction Status Date / Time fluconazole AdvReac Rash Verified 09/13/21 21:29 Active Medications: Current Medications Dextrose (Dextrose 50 % 25 Gm/50 Ml Syringe) 25 gm IVPUSH Q15M PRN; Protocol PRN Reason: per Hypoglycemia Standing Ord. Enoxaparin Sodium (Enoxaparin Sodium 80 Mg/0.8 Ml Syringe) 80 mg SUBCUT Q12H S CH Furosemide (Furosemide 40 Mg/4 Ml Vial) 40 mg IVPUSH BID@0900,1800 [facility]; Protocol Glucose (Glucose Gel 15 Gm Gel..Gram.) 15 gm PO Q15M PRN; Protocol PRN Reason: per Hypoglycemia Standing Ord. Insulin Human Lispro (Insulin Lispro 100 Unit/Ml 3 Ml Vial) 0 unit SUBCUT QIDACHS [facility]; Protocol Pharmacy Consult (Consult Rx Perform Med Rec) 1 each MISCELLANE ONCE PRN PRN Reason: Consult order Home Medications Medication Instructions Recorded Confirmed Last Taken Type apixaban 5 mg tablet (Eliquis) 1 tab PO BID 05/15/22 05/15/22 History furosemide 20 mg tablet 1 tab PO DAILY 05/15/22 Unknown History metformin 500 mg tablet 2 tab PO BID 05/15/22 05/15/22 History simvastatin 20 mg tablet 1 tab PO BEDTIME 05/15/22 05/14/22 History Physical Exam Vital Signs and Narrative: Vital Signs: Last Vital Signs Temp 97.0 F 05/15/22 11:57 Pulse 66 05/15/22 15:16 Resp 18 05/15/22 15:16 BP 125/65 05/15/22 15:16 Pulse Ox 98 05/15/22 15:16 O2 Del Method 05/15/22 15:16 O2 Flow Rate 2 05/15/22 15:16 BMI result Body Mass Index 27.0 General: AO X 3, no acute distress, frail appearing Resp: diminished at bases bilateral, no accessory muscles used CVS: S1,S2,RRR, 3+ bilateral edema GI: soft, non tender, bloated Neuro: motor grossly intact, alert Psych: appropriate affect, appropriate insight Results Labs 05/15/22 12:26 05/15/22 13:04 Labs: Laboratory Results - last 24 hr 05/15/22 05/15/22 05/15/22 12:26 12:26 12:26 MCV 93.0 MCH 27.3 MCHC 29.3 L RDW 17.8 H Plt Count 279 MPV 11.7 Immature Gran % (Auto) 0.4 Neut % (Auto) 83.5 H Lymph % (Auto) 5.3 L Coleman % (Auto) 9.8 Eos % (Auto) 0.6 Baso % (Auto) 0.4 Lymph # (Auto) 0.3 L Coleman # (Auto) 0.5 Eos # (Auto) 0.0 Baso # (Auto) 0.0 Abs Immat Gran (auto) 0.02 Absolute Neuts (auto) 4.5 Absolute Nucleated RBC 0.000 Nucleated RBC % (auto) 0.0 PT INR APTT VBG pH VBG pCO2 VBG pO2 VBG HCO3 VBG O2 Saturation VBG Base Excess Anion Gap Estim Creat Clear Calc Estimated GFR Random Glucose Calcium Magnesium Total Bilirubin Direct Bilirubin AST ALT Alkaline Phosphatase Troponin I High Sens B-Natriuretic Peptide 1365 H Total Protein Albumin COVID-19 (VIRGIL) Negative COVID-19 Clin Com See Note 05/15/22 05/15/22 05/15/22 12:26 12:26 12:39 MCV MCH MCHC RDW Plt Count MPV Immature Gran % (Auto) Neut % (Auto) Lymph % (Auto) Coleman % (Auto) Eos % (Auto) Baso % (Auto) Lymph # (Auto) Coleman # (Auto) Eos # (Auto) Baso # (Auto) Abs Immat Gran (auto) Absolute Neuts (auto) Absolute Nucleated RBC Nucleated RBC % (auto) PT 20.7 H INR 1.8 H APTT 34.6 VBG pH VBG pCO2 VBG pO2 VBG HCO3 VBG O2 Saturation VBG Base Excess Anion Gap Estim Creat Clear Calc Estimated GFR Random Glucose Calcium Magnesium Total Bilirubin Direct Bilirubin AST ALT Alkaline Phosphatase Troponin I High Sens 27.1 B-Natriuretic Peptide Total Protein Albumin COVID-19 (VIRGIL) COVID-[place] 05/15/22 05/15/22 05/15/22 12:44 13:04 14:15 MCV MCH MCHC RDW Plt Count MPV Immature Gran % (Auto) Neut % (Auto) Lymph % (Auto) Coleman % (Auto) Eos % (Auto) Baso % (Auto) Lymph # (Auto) Coleman # (Auto) Eos # (Auto) Baso # (Auto) Abs Immat Gran (auto) Absolute Neuts (auto) Absolute Nucleated RBC Nucleated RBC % (auto) PT INR APTT VBG pH 7.44 H VBG pCO2 49 VBG pO2 47 VBG HCO3 34 H VBG O2 Saturation 69.0 VBG Base Excess 8.7 Anion Gap 18 Estim Creat Clear Calc 35.6 Estimated GFR 41 Random Glucose 158 H Calcium 8.8 Magnesium 1.9 Total Bilirubin 1.1 H Direct Bilirubin 0.5 AST 20 ALT 13 Alkaline Phosphatase 88 Troponin I High Sens 30.4 B-Natriuretic Peptide Total Protein 6.1 L Albumin 3.0 L COVID-19 (VIRGIL) COVID-[place] Imaging Radiologist's Impressions: Impressions Chest CT 05/15/22 12:59 IMPRESSION: Bilateral pleural effusions, right greater than left with associated compressive atelectasis. Fleischner guidelines were followed. 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 cardiorenal diurese, monitor hyperkalemia IV Lasix, monitor permanent atrial fibrillation rate controlled without meds, monitor on tele hold Eliquis, will give therapeutic Lovenox for planned thoracentesis, last Eliquis dose a.m. of 05/15/2022 history of laryngeal cancer status post gastrostomy tube due to dysphagia continue G-tube feeds nutrition eval for guidance diabetes hold metformin insulin, monitor point of cares hyperlipidemia continue statin DVT prophylaxis-on Lovenox DNR/DNI patient with significant hypoxia requiring IV diuresis, oxygen supplementation, high risk for further decompensation due to advanced age, frailty, history of permanent atrial fibrillation, laryngeal cancer, diabetes, therefore expected acquire least 2 midnights inpatient. Time Spent With Patient Time: Total time managing care of this patient today ____ minutes. Quality Stroke Does the patient have a stroke diagnosis?: No VTE Prior VTE?: No VTE Risk Level:: Medical - moderate - high VTE Device Contraindication: Treatment Not Indicated VTE Drug Contraindication: N/A - Med Ordered
--- NOTE | 2022-05-15 16:10 | PC.NURSE ---
Messaged inpatient MD to verify meds
[2022-05-15 16:14] LABS: Glucose, Whole Blood 120 mg/dL (60-115)
--- NOTE | 2022-05-15 16:23 | PC.NURSE ---
Dietary called for Jevity
--- NOTE | 2022-05-15 16:55 | PC.NURSE ---
Regional Sales Coordinator spoke with clinical avionics supervisor about kangaroo pump and tubing gives bolus over an hour will CTM
[2022-05-15] MEDS: Furosemide 40 MG/4 ML VIAL IVPUSH (17:21)
--- NOTE | 2022-05-15 17:59 | PC.NURSE ---
Verified G tube placement with air induction placed feed on kangaroo pump will CTM
--- NOTE | 2022-05-15 20:40 | PC.NURSE ---
Took of care from CINDY Sesay at 1900, Pt denies increase of sob or chest pain. Report given to receiving unit. Will tiger text me will room is clean and avaliable.
[2022-05-15 21:44] LABS: Glucose, Whole Blood 184 mg/dL (60-115)
[2022-05-15] MEDS: Atorvastatin Calcium 10 MG TABLET G-TUBE (21:46)
[2022-05-15] MEDS: Insulin Lispro 100 UNIT/ML 3 ML VIAL SUBCUT (21:53)
[2022-05-15] MEDS: Enoxaparin Sodium 80 MG/0.8 ML SYRINGE SUBCUT (21:53)
[2022-05-16 04:00] VITALS: BP 116/61; PULSE 65; RESP 16; TEMP 36.8; O2SAT 93
--- NOTE | 2022-05-16 07:00 | CA_ITS ---
Transthoracic Echocardiogram Patient (Last, First, Middle): Jose Mccartney R Gender: Male Date of : 1940 Age: 82 Procedure Date: 05/16/2022 Procedure Type: Transthoracic Echocardiogram Location: [facility] [place] Height: 177.8 cm Weight: 85.28 kg BSA: 2.03 m2 Heart Rate: bpm BP: 125 / 65 mmHg Senior Analysis Specialist: TO Referring MD: Dylon Stoner MD Symptoms: chf Study Quality: Fair/Contrast ECG Rhythm: Atrial Fibrillation Conclusions: - The left ventricular systolic function is normal. The calculated ejection fraction is 65% by biplane method. - There is severe septal asymmetric hypertrophy. - Moderately increased right ventricular cavity size. There is moderately decreased right ventricular systolic function. - No obvious valvular pathology seen on this study. Findings Procedure Information Contrast agent, definity, is being given per protocol without apparent complications. Left Ventricle Normal left ventricular cavity size. There is mildly increased left ventricular wall thickness. The left ventricular systolic function is normal. The calculated ejection fraction is 65% by biplane method. There is no evidence of regional wall motion abnormalities. Diastolic function is indeterminate on the basis of available data. There is severe septal asymmetric hypertrophy. Right Ventricle Moderately increased right ventricular cavity size. There is moderately decreased right ventricular systolic function. Atria Both atria are normal in size. Aortic Valve There is a normal trileaflet aortic valve. There is mild calcification of the aortic valve. There is no aortic valve stenosis. There is trace (trivial) aortic valve regurgitation. Mitral Valve There is mild mitral annular calcification. There is mild mitral valve regurgitation. There is no mitral valve stenosis. Pulmonic Valve The pulmonic valve is likely normal. Tricuspid Valve There is trace tricuspid valve regurgitation. There is no evidence of pulmonary hypertension. Great Vessels The asc aorta is normal in size. Venous The inferior vena cava was not well visualized. Pericardium/Pleural There is no evidence of pericardial effusion. There is a moderate right sided pleural effusion and a moderate left sided pleural effusion. Prior Study Comparison No prior study available for comparison. Recommendations, Care & Conclusions No obvious valvular pathology seen on this study. Measurements 2D Linear Measurements IVSd: 1.50 0.6-0.9/0.6-1.0 cm LVIDd: 4.55 3.9-5.3/4.2-5.9 cm LVIDd Index: 2.24 2.4-3.2/2.2-3.1 cm/m2 LVIDs: 3.61 2.0-3.6 cm LVPWd: 1.15 0.7-1.1 cm LA Diam: 3.80 2.7-3.8/3.0-4.0 cm LAIDs Index: 1.87 1.5-2.3 cm/m2 LV Mass: 290.21 67-162/88-224 g LV Mass Index: 142.96 43-95/49-115 g/m2 LVOT Diam: 2.20 3.0+(-)1.3 cm 2D Systolic Function EF 4C: 63.40 >55% EF 2C: 65.70 >55% EF BiP: 64.70 >55% Mitral Valve MV Pk E: 0.85 MV Decel Time: 269.00 E'Lateral: 10.20 E'Medial: 5.55 E/E' Med: 15.30 E/E' Lat: 8.30 PHT: 79.00 MVA PHT: 2.78 Decel [place]: 3.15 Aortic Valve AoV Pk Abdulaziz: 1.27 AoV Pk Grad: 6.00 LVOT LVOT Pk Abudlaziz: 0.55 LVOT Mn Abdulaziz: 0.40 LVOT VTI: 0.13 LVOT Pk Grad: 1.00 LVOT Mn Grad: 1.00 LVOT Diam: 2.20 LVOT Area: 3.80 Diastolic Function MV Pk E: 0.85 E'Medial: 5.55 E/E' Med: 15.30 E' Laterial: 10.20 E/E' Lat: 8.30 Right Ventricle TAPSE (mm): 1.12 TVS' Abdulaziz: 8.87 Tricuspid Valve TR Pk Abdulaziz: 2.00 TR Pk Grad: 16.00 Great Vessels Aorta Sinus of Valsalva: 3.70 2.0-3.5 cm Ao Asc: 3.60 2.1-3.4 cm Updated in Other Vendor System with Status of Final Rubén Harris MD electronically signed on 05/16/2022 12:06:51 PM with status of Final
[2022-05-16 07:20] LABS: Glucose, Whole Blood 114 mg/dL (60-115)
[2022-05-16 07:32] LABS: Hematocrit 39.4 % (42.0-52.0); Mean Corpuscular HGB Conc 30.5 g/dl (31.0-36.0); Mean Corpuscular Hemoglobin 27.3 pg (27.0-33.0); Mean Corpuscular Volume 89.5 fL (80.0-98.0); Mean Platelet Volume 11.5 fL (9.4-12.4); Platelet Count 238 X10*3/uL (160-400); Red Cell Distribution Width 17.3 % (11.0-16.0); White Blood Count 5.3 X10*3/uL (4.8-10.8)
[2022-05-16 07:53] VITALS: BP 159/70; PULSE 74; RESP 20; TEMP 36.7; O2SAT 95
[2022-05-16 07:59] LABS: Blood Urea Nitrogen 63 mg/dL (9-16); Calcium 8.9 mg/dL (8.4-10.2); Creatinine Clr Calc Pharmacy 41.8; Estimated Glomerular Filt Rate 49; Glucose Fasting 98 mg/dL (60-99)
[2022-05-16] MEDS: Enoxaparin Sodium 80 MG/0.8 ML SYRINGE SUBCUT (08:12)
[2022-05-16] MEDS: Furosemide 40 MG/4 ML VIAL IVPUSH ×2 (08:12→17:50)
[2022-05-16 08:16] LABS: Anion Gap 16 (12-20); Carbon Dioxide 35 mmol/L (22-29); Chloride 92 mmol/L (96-108); Sodium 139 mmol/L (135-145)
--- NOTE | 2022-05-16 10:21 | PM.CNCAR ---
History of Present Illness History of Present Illness Date of Service: 05/16/22 Chief complaint: chf Narrative: This is a cardiology consultation regarding congestive heart failure. Patient denies any history of cardiac issues including coronary artery disease or myocardial infarction or any other cardiac concerns. He has a history of longstanding atrial fibrillation listed as permanent atrial fibrillation. Also with laryngeal cancer in remission. Gastrostomy tube. Diabetes, high lipids and CKD. He presents with complaints of shortness of breath. Increasing weight. Approximately 30 lb weight gain in 1 month. Leg swelling. Abdominal bloating. Then chest CT scan had shown right pleural effusion and then he was subsequently admitted. Review of Systems Review of Systems: Yes all other systems are reviewed and are negative Constitutional: Constitutional: Reports as per HPI and Reports no additional constitutional complaints Eyes: Eyes: Reports as per HPI and Denies no additional eye complaints ENT: Denies system reviewed and no additional complaints, except as documented and Reports as per HPI Cardiovascular: Cardiovascular: Reports as per HPI, Reports no additional cardiovascular complaints, Denies acrocyanosis, Denies cool extremities, Denies chest pain, Denies leg edema, Denies lightheadedness, Denies palpitations and Reports dyspnea Respiratory: Respiratory: Reports as per HPI, Denies no additional respiratory complaints and Reports dyspnea Gastrointestinal: Gastrointestinal: Reports as per HPI and Denies no additional gastrointestinal complaints Genitourinary: Genitourinary: Reports no additional male genitourinary complaints and Reports as per HPI Musculoskeletal: Musculoskeletal: Reports no additional musculoskeletal complaints and Reports as per HPI Integumentary/Breasts: Skin/Breast: Reports system reviewed and no additional complaints, except as docu Neurologic: Reports system reviewed and no additional complaints, except as documented and Reports as per HPI Psychiatric: Psychiatric: Reports no additional psychiatric complaints and Reports as per HPI Endocrine: Endocrine: Reports no additional endocrine complaints, Reports as per HPI and Denies palpitations Hematologic/Lymphatic: Hematologic/Lymphatic: Reports no additional hematologic/lymphatic complaints and Reports as per HPI Allergic/Immunologic: Allergic/Immunologic: Reports no additional allergic/immunologic complaints and Reports as per HPI [facility] Past Medical History Medical History Atrial fibrillation Diabetes mellitus Hyperlipidemia Throat cancer Family History Family History (Updated 05/16/22 @ 10:24 by Rubén Harris MD) Mother Cancer Surgical History Surgical History Gastrostomy in place Social History Social History Household Members: Spouse Housing: House Do you presently have visiting nurse or other home services: No Unable to assess alcohol history related to: Unknown Alcohol intake: unknown Patient Tobacco Use Status: Former Tobacco user Smoked in Last 30 Days: No Patient Interested in Nicotine Replacement: No Patient Given Instructions on How to Stop Smoking: No Second Hand Smoke Exposure: No Currently Displaying Signs/Symptoms of Drug Intoxication Withdrawal: No Any prior treatment program specific to substance use: No Have you been hit, kicked, punched, or otherwise hurt by someone within the past year? If so, by whom?: No Do you feel safe in your current relationship?: Yes Is there a partner from a previous relationship who is making you feel unsafe now?: No Are you made to feel afraid or neglected: No Advance Directives: No Advance Directives on File: No Do you have thoughts of harming others: None Do you have a plan to hurt others: No Plan Recently lost weight without trying: No How much weight loss: Not applicable Eating poorly because of decreased appetite: No Nutrition screen score: 0 Nutrition Risks: On aspiration precautions and Receiving home tube feeding or CPN Poor oral hygiene: No Meds Allergies Allergy/AdvReac Type Severity Reaction Status Date / Time fluconazole AdvReac Rash Verified 09/13/21 21:29 Active Medications: Current Medications Atorvastatin Calcium (Atorvastatin Calcium 10 Mg Tablet) 10 mg G-TUBE BEDTIME [facility] Last Admin: 05/15/22 21:46 Dose: 10 mg Dextrose (Dextrose 50 % 25 Gm/50 Ml Syringe) 25 gm IVPUSH Q15M PRN; Protocol PRN Reason: per Hypoglycemia Standing Ord. Enoxaparin Sodium (Enoxaparin Sodium 80 Mg/0.8 Ml Syringe) 80 mg SUBCUT Q12H [facility] Last Admin: 05/16/22 08:12 Dose: 80 mg Furosemide (Furosemide 40 Mg/4 Ml Vial) 40 mg IVPUSH BID@0900,1800 [facility]; Protocol Last Admin: 05/16/22 08:12 Dose: 40 mg Glucose (Glucose Gel 15 Gm Gel..Gram.) 15 gm PO Q15M PRN; Protocol PRN Reason: per Hypoglycemia Standing Ord. Insulin Human Lispro (Insulin Lispro 100 Unit/Ml 3 Ml Vial) 0 unit SUBCUT [facility]; Protocol Last Admin: 05/16/22 07:38 Dose: Not Given Pharmacy Consult (Consult Rx Perform Med Rec) 1 each MISCELLANE ONCE PRN PRN Reason: Consult order Home Medications Medication Instructions Recorded Confirmed Last Taken Type apixaban 5 mg tablet (Eliquis) 1 tab PO BID 05/15/22 05/15/22 05/15/22 History furosemide 20 mg tablet 1 tab PO DAILY 05/15/22 05/15/22 Unknown History metformin 500 mg tablet 2 tab PO BID 05/15/22 05/15/22 05/15/22 History simvastatin 20 mg tablet 1 tab PO BEDTIME 05/15/22 05/15/22 05/14/22 History Physical Exam Vital Signs: Vital Signs: Last Vital Signs Temp 98.1 F 05/16/22 07:53 Pulse 74 05/16/22 07:53 Resp 20 05/16/22 07:53 BP 159/70 H 05/16/22 07:53 Pulse Ox 95 05/16/22 07:53 O2 Del Method 05/16/22 07:53 O2 Flow Rate 2 05/16/22 04:00 BMI result Body Mass Index 27.0 Const: General: comfortable, no acute distress and ill appearing Orientation/consciousness: patient oriented x3 HEENT: Other: Unremarkable Head: Yes normal to inspection Neck: Neck: Yes normal visual inspection Chest: Chest palpation & inspection: normal inspection of the chest Resp: Auscultation: bronchial breath sounds bilateral (bases) Cardio: Palpation: normal PMI Heart sounds: S1 normal heart sound present, S2 normal heart sound present, no gallops, no murmurs and no rubs GI: Palpation (GI): Soft to palpation Back/Spine/Pelvis: Other: unremarkable Skin: General skin exam: no rashes or lesions noted Neuro: General: patient oriented x3 Extrem: Other: 1+ edema General: Yes normal to inspection Psych: Mental Status: mental status grossly normal Objective Labs and Meds 05/16/22 07:08 05/16/22 07:08 Lab results: Laboratory Results - last 24 hr 05/15/22 05/15/22 05/15/22 12:26 12:26 12:26 WBC 5.3 RBC 4.58 L Hgb 12.5 L Hct 42.6 MCV 93.0 MCH 27.3 MCHC 29.3 L RDW 17.8 H Plt Count 279 MPV 11.7 Immature Gran % (Auto) 0.4 Neut % (Auto) 83.5 H Lymph % (Auto) 5.3 L Hamblen % (Auto) 9.8 Eos % (Auto) 0.6 Baso % (Auto) 0.4 Lymph # (Auto) 0.3 L Hamblen # (Auto) 0.5 Eos # (Auto) 0.0 Baso # (Auto) 0.0 Abs Immat Gran (auto) 0.02 Absolute Neuts (auto) 4.5 Absolute Nucleated RBC 0.000 Nucleated RBC % (auto) 0.0 PT INR APTT VBG pH VBG pCO2 VBG pO2 VBG HCO3 VBG O2 Saturation VBG Base Excess Sodium Potassium Chloride Carbon Dioxide Anion Gap BUN Creatinine Estim Creat Clear Calc Estimated GFR POC Glucose Random Glucose Fasting Glucose Calcium Magnesium Total Bilirubin Direct Bilirubin AST ALT Alkaline Phosphatase Troponin I High Sens B-Natriuretic Peptide 1365 H Total Protein Albumin COVID-19 (VIRGIL) Negative COVID-[employer]Mix[employer] Com See Note 05/15/22 05/15/22 05/15/22 12:26 12:26 12:39 WBC RBC Hgb Hct MCV MCH MCHC RDW Plt Count MPV Immature Gran % (Auto) Neut % (Auto) Lymph % (Auto) Hamblen % (Auto) Eos % (Auto) Baso % (Auto) Lymph # (Auto) Hamblen # (Auto) Eos # (Auto) Baso # (Auto) Abs Immat Gran (auto) Absolute Neuts (auto) Absolute Nucleated RBC Nucleated RBC % (auto) PT 20.7 H INR 1.8 H APTT 34.6 VBG pH VBG pCO2 VBG pO2 VBG HCO3 VBG O2 Saturation VBG Base Excess Sodium Potassium Chloride Carbon Dioxide Anion Gap BUN Creatinine Estim Creat Clear Calc Estimated GFR POC Glucose Random Glucose Fasting Glucose Calcium Magnesium Total Bilirubin Direct Bilirubin AST ALT Alkaline Phosphatase Troponin I High Sens 27.1 B-Natriuretic Peptide Total Protein Albumin COVID-19 (VIRGIL) COVID-10-20 Media 05/15/22 05/15/22 05/15/22 12:44 13:04 14:15 WBC RBC Hgb Hct MCV MCH MCHC RDW Plt Count MPV Immature Gran % (Auto) Neut % (Auto) Lymph % (Auto) Hamb[place] % (Auto) Eos % (Auto) Baso % (Auto) Lymph # (Auto) Hamblen # (Auto) Eos # (Auto) Baso # (Auto) Abs Immat Gran (auto) Absolute Neuts (auto) Absolute Nucleated RBC Nucleated RBC % (auto) PT INR APTT VBG pH 7.44 H VBG pCO2 49 VBG pO2 47 VBG HCO3 34 H VBG O2 Saturation 69.0 VBG Base Excess 8.7 Sodium 135 Potassium 5.5 H Chloride 92 L Carbon Dioxide 31 H Anion Gap 18 BUN 70 H Creatinine 1.62 H Estim Creat Clear Calc 35.6 Estimated GFR 41 POC Glucose Random Glucose 158 H Fasting Glucose Calcium 8.8 Magnesium 1.9 Total Bilirubin 1.1 H Direct Bilirubin 0.5 AST 20 ALT 13 Alkaline Phosphatase 88 Troponin I High Sens 30.4 B-Natriuretic Peptide Total Protein 6.1 L Albumin 3.0 L COVID-19 (VIRGIL) COVID-19 [employer] 05/15/22 05/15/22 05/16/22 16:10 21:38 07:03 WBC RBC Hgb Hct MCV MCH MCHC RDW Plt Count MPV Immature Gran % (Auto) Neut % (Auto) Lymph % (Auto) Hamb[place] % (Auto) Eos % (Auto) Baso % (Auto) Lymph # (Auto) Hamblen # (Auto) Eos # (Auto) Baso # (Auto) Abs Immat Gran (auto) Absolute Neuts (auto) Absolute Nucleated RBC Nucleated RBC % (auto) PT INR APTT VBG pH VBG pCO2 VBG pO2 VBG HCO3 VBG O2 Saturation VBG Base Excess Sodium Potassium Chloride Carbon Dioxide Anion Gap BUN Creatinine Estim Creat Clear Calc Estimated GFR POC Glucose 120 H 184 H 114 Random Glucose Fasting Glucose Calcium Magnesium Total Bilirubin Direct Bilirubin AST ALT Alkaline Phosphatase Troponin I High Sens B-Natriuretic Peptide Total Protein Albumin COVID-19 (VIRGIL) COVID-19 [employer] Com 05/16/22 05/16/22 07:08 07:08 WBC 5.3 RBC 4.40 L Hgb 12.0 L Hct 39.4 L MCV 89.5 MCH 27.3 MCHC 30.5 L RDW 17.3 H Plt Count 238 MPV 11.5 Immature Gran % (Auto) Neut % (Auto) Lymph % (Auto) Hamb[place] % (Auto) Eos % (Auto) Baso % (Auto) Lymph # (Auto) Hamblen # (Auto) Eos # (Auto) Baso # (Auto) Abs Immat Gran (auto) Absolute Neuts (auto) Absolute Nucleated RBC 0.000 Nucleated RBC % (auto) 0.0 PT INR APTT VBG pH VBG pCO2 VBG pO2 VBG HCO3 VBG O2 Saturation VBG Base Excess Sodium 139 Potassium 4.0 D Chloride 92 L Carbon Dioxide 35 H Anion Gap 16 BUN 63 H Creatinine 1.38 Estim Creat Clear Calc 41.8 Estimated GFR 49 POC Glucose Random Glucose Fasting Glucose 98 Calcium 8.9 Magnesium Total Bilirubin Direct Bilirubin AST ALT Alkaline Phosphatase Troponin I High Sens B-Natriuretic Peptide Total Protein Albumin COVID-19 (VIRGIL) COVID-19 Clin Com ECG Interpretation: EKG with atrial fibrillation at 65/Min; inverted T-waves across the precordial leads as well as inferior leads. Slight QT prolongation but difficult to assess because of atrial fibrillation. Imaging Radiologist's impression: Impressions Chest CT 05/15/22 12:59 IMPRESSION: Bilateral pleural effusions, right greater than left with associated compressive atelectasis. Fleischner guidelines were followed. Assessment and Plan (1) CHF (congestive heart failure): Status: Acute (2) Atrial fibrillation: Status: Acute Plan Cardiac BNP is 1365. No previous levels. High sensitive troponins are 27 and 30. BUN 63 and creatinine is 1.38. CT chest shows bilateral pleural effusions. Right greater than left. Also listed to have severe triple-vessel ? disease but the sentence incomplete. Overall, probable congestive heart failure. Will need to get an echocardiogram for cardiac function assessment. Both biventricular function as well as valvular structure and function/pulmonary hypertension. Otherwise, in the interim continue IV diuretics. He already has renal dysfunction and hence need to be cautious. Plans for thoracentesis noted. With regard to atrial fibrillation, not on any rate control meds. On Eliquis. Will follow up with you. Time Spent With Patient Time: Total time managing care of this patient today 75 minutes. Procedures Date of Service Date of Service: 05/16/22
[2022-05-16 11:29] LABS: Glucose, Whole Blood 177 mg/dL (60-115)
[2022-05-16 11:30] VITALS: BP 113/57; PULSE 66; RESP 20; TEMP 36.7; O2SAT 97
[2022-05-16] MEDS: Insulin Lispro 100 UNIT/ML 3 ML VIAL SUBCUT (11:37)
--- NOTE | 2022-05-16 13:04 | MHC.CM.PN ---
IMM DELIVERED PT LIVES WITH SPOUSE IN A [facility]. NO SERVICES PRIOR. HAS G/TUBE (BOLUS FEEDS: FIBERSOURCE HN 1.2) VENDOR IS [employer]. PT IS INDEPENDENT, USES WALKER/CANE NEEDED. +COVID VAX X4 +HCP PCP RAY URIOSTEGUI AT [facility]. DP: HOME, OPEN TO [facility], NOT INTERESTED IN SNF. SPOUSE WILL TRANSPORT HOME.
[2022-05-16 14:06] VITALS: BMI 27.0
--- NOTE | 2022-05-16 14:15 | MHC.CLN ---
RE: CONSULT PT USING HIGH VOLUME BOLUS TUBE FEEDING AT HOME WITH NON-DIABETIC FORMULA AND NOT MEETING ESTIMATED KCALS/PROTEIN NEEDS IN ADDITION TO INCREASED RISK FOR ASPIRATION PNA. PT'S FAMILY MEMBER REPORTED GIVING PT 500ML BOLUS FIBERSOURCE HN TID AT HOME. PT WITH DX DIABETES AND MAY BENEFIT FROM DM FORMULA WITH IMPROVED POC PT CURRENTLY RECEIVING JEVITY 1.0 BOLUS 400ML Q 8HRS WITH 300ML H20 TID PROVIDES 1272KCALS, 53G PROTEIN, 1902ML FREE WATER FROM FORMULA AND FLUSHES RECOMMEND NOCTURNAL FEEDING TO RUN FROM 9PM-8AM CONTINUOUS (11HRS TOTAL): GLUCERNA AT MAX GOAL RATE 200ML/HR X11 HRS WITH 120ML FWF TID TO PROVIDE 2200KCALS (29KCLAS/KG BASED ON IBW), 92G PROTEIN (1.2G/KG), 2237ML TOTAL WATER FROM FORMULA AND FLUSH (30ML/KG) MONITOR TOLERANCE, RESIDUALS AND LYTES SEE ALSO FULL CLINICAL NUTRITION ASSESSMENT
--- NOTE | 2022-05-16 15:11 | P.PNIM_ITS ---
Subjective Subjective Date of Service: 05/16/22 Interval History: Seen and evaluated this morning Feels much better already Still on oxygen requirement Making good amount of urine No other overnight events Review of Systems Review of Systems: Yes all other systems are reviewed and are negative Physical Exam Vital Signs: Vital Signs: Last Vital Signs Temp 98.0 F 05/16/22 11:30 Pulse 66 05/16/22 11:30 Resp 20 05/16/22 11:30 BP 113/57 L 05/16/22 11:30 Pulse Ox 97 05/16/22 11:30 O2 Del Method 05/16/22 11:30 O2 Flow Rate 2 05/16/22 04:00 BMI result Body Mass Index 27.0 Const: Other: Constitutional : Awake, interactive, not in distress Neck : Normal inspection, Supple Cardiovascular : RRR, mildly elevated JVP , trace lower extremity edema Respiratory : good bilateral air entry, no crackles, wheezes or rhonchi Gastrointestinal: soft, lax, Normal bowel sounds, Non tender Skin : Warm, Dry Neurological : Alert & oriented x3, No focal deficit Objective Data Active Medications Atorvastatin Calcium (Atorvastatin Calcium 10 Mg Tablet) 10 mg G-TUBE BEDTIME [facility] Last Admin: 05/15/22 21:46 Dose: 10 mg Documented By: ZAHIDA Dextrose (Dextrose 50 % 25 Gm/50 Ml Syringe) 25 gm IVPUSH Q15M PRN; Protocol PRN Reason: per Hypoglycemia Standing Ord. Enoxaparin Sodium (Enoxaparin Sodium 80 Mg/0.8 Ml Syringe) 80 mg SUBCUT Q12H [facility] Last Admin: 05/16/22 08:12 Dose: 80 mg Documented By: PRAETEK Furosemide (Furosemide 40 Mg/4 Ml Vial) 40 mg IVPUSH BID@0900,1800 [facility]; Protocol Last Admin: 05/16/22 08:12 Dose: 40 mg Documented By: PRATEEK Glucose (Glucose Gel 15 Gm Gel..Gram.) 15 gm PO Q15M PRN; Protocol PRN Reason: per Hypoglycemia Standing Ord. Insulin Human Lispro (Insulin Lispro 100 Unit/Ml 3 Ml Vial) 0 unit SUBCUT QIDACHS [facility]; Protocol Last Admin: 05/16/22 11:37 Dose: 2 unit Documented By: PRATEEK Pharmacy Consult (Consult Rx Perform Med Rec) 1 each MISCELLANE ONCE PRN PRN Reason: Consult order Labs 05/16/22 07:08 05/16/22 07:08 Labs: Laboratory Results - last 24 hr 05/15/22 05/15/22 05/16/22 16:10 21:38 07:03 MCV MCH MCHC RDW Plt Count MPV Absolute Nucleated RBC Nucleated RBC % (auto) Anion Gap Estim Creat Clear Calc Estimated GFR POC Glucose 120 H 184 H 114 Fasting Glucose Calcium 05/16/22 05/16/22 05/16/22 07:08 07:08 11:24 MCV 89.5 MCH 27.3 MCHC 30.5 L RDW 17.3 H Plt Count 238 MPV 11.5 Absolute Nucleated RBC 0.000 Nucleated RBC % (auto) 0.0 Anion Gap 16 Estim Creat Clear Calc 41.8 Estimated GFR 49 POC Glucose 177 H Fasting Glucose 98 Calcium 8.9 Assessment and Plan (1) CHF (congestive heart failure): Status: Acute (2) Hypoxia: Status: Acute (3) Atrial fibrillation: Status: Acute Plan 82M PMH permanent afib, 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, DM, hld, CKD II, presented with sob Acute hypoxic respiratory failure secondary to acute unspecified CHF complicated by bilateral pleural effusions right greater than left Continue IV Lasix Pending echo Hold on right thoracentesis Cardio eval appreciated acute kidney injury on CKD II seems cardiorenal, improving Continue diurese monitor BMP hyperkalemia Improve Continue IV Lasix, monitor permanent atrial fibrillation rate controlled without meds, monitor on tele hold Eliquis, will give therapeutic Lovenox for planned thoracentesis, last Eliquis dose a.m. of 05/15/2022 history of laryngeal cancer status post gastrostomy tube due to dysphagia continue G-tube feeds nutrition eval for guidance diabetes hold metformin insulin, monitor point of cares hyperlipidemia continue statin DVT prophylaxis-on Lovenox DNR/DNI Patient will need overnight hospital stay for treatment of heart failure given high risk for further decompensation due to advanced age, frailty pending safe discharge plan and weaning of oxygen Time Spent With Patient Time: Total time managing care of this patient today ____ minutes. Quality Stroke Does the patient have a stroke diagnosis?: No VTE Prior VTE?: No VTE Risk Level:: Medical - moderate - high VTE Device Contraindication: Treatment Not Indicated VTE Drug Contraindication: N/A - Med Ordered
[2022-05-16 15:13] LABS: Estimated Average Glucose 163 mg/dL; Hemoglobin A1c % 7.3 %
[2022-05-16 15:47] VITALS: BP 148/68; PULSE 71; RESP 13; TEMP 36.4; O2SAT 97
[2022-05-16 15:55] VITALS: BP 148/68; PULSE 71; RESP 13; TEMP 36.4; O2SAT 97
[2022-05-16 16:31] LABS: Glucose, Whole Blood 69 mg/dL (60-115)
[2022-05-16 17:17] LABS: Glucose, Whole Blood 108 mg/dL (60-115)
[2022-05-16 19:54] VITALS: BP 122/68; PULSE 73; RESP 14; TEMP 36.4; O2SAT 91
[2022-05-16 20:43] LABS: Glucose, Whole Blood 112 mg/dL (60-115)
[2022-05-16] MEDS: Atorvastatin Calcium 10 MG TABLET G-TUBE (21:41)
[2022-05-17] VITALS (8 sets, daily range): BP systolic 104–139; BP diastolic 55–66; PULSE 66–79; RESP 14–18; TEMP 36.4–37.5; O2SAT 91–100
[2022-05-17 07:41] LABS: Hematocrit 41.3 % (42.0-52.0); Hemoglobin 12.4 g/dl (14.0-18.0); Mean Corpuscular Hemoglobin 26.9 pg (27.0-33.0); Mean Corpuscular Volume 89.6 fL (80.0-98.0); Mean Platelet Volume 11.4 fL (9.4-12.4); Platelet Count 255 X10*3/uL (160-400); Red Blood Count 4.61 X10*6/uL (4.60-5.80); Red Cell Distribution Width 17.3 % (11.0-16.0); White Blood Count 5.4 X10*3/uL (4.8-10.8)
[2022-05-17 07:57] LABS: Anion Gap 14 (12-20); Blood Urea Nitrogen 55 mg/dL (9-16); Calcium 9.4 mg/dL (8.4-10.2); Carbon Dioxide 39 mmol/L (22-29); Chloride 90 mmol/L (96-108); Creatinine Clr Calc Pharmacy 40.6; Estimated Glomerular Filt Rate 48; Glucose Random 180 mg/dL (60-115); Potassium 4.2 mmol/L (3.3-5.1); Sodium 139 mmol/L (135-145)
[2022-05-17 08:09] LABS: B Type Natriuretic Peptide 84 pg/mL (<100)
[2022-05-17 08:21] LABS: Glucose, Whole Blood 188 mg/dL (60-115)
[2022-05-17] MEDS: Furosemide 40 MG/4 ML VIAL IVPUSH ×2 (09:43→17:01)
[2022-05-17] MEDS: Insulin Lispro 100 UNIT/ML 3 ML VIAL SUBCUT (09:44)
[2022-05-17] MEDS: Lidocaine HCl 1 % MPF 5 ML VIAL SUBCUT (12:08)
--- NOTE | 2022-05-17 12:09 | MHC.CM.PN ---
Addendum entered by Jessica Ag 05/17/22 12:42: A referral to resume services has been sent to [facility]. A clinical update has been sent. Original Note: Per MD rounds no dc today. Patient is scheduled for Thorocentesis today. A PT eval has been ordered. The patient will resume T.F. at home. [facility] is the vendor. The body builder has changed the formula to a DM. The schedule will change to Nocturnal feeds via pump. DP home with family assist and transport.
[2022-05-17] MEDS: Dextrose 50 % 25 GM/50 ML SYRINGE IVPUSH (12:37)
[2022-05-17 12:42] LABS: Glucose, Whole Blood 58 mg/dL (60-115)
[2022-05-17 12:53] LABS: WBC Pleural Fluid 0.251 X10*3/uL
--- NOTE | 2022-05-17 12:56 | MHC.CLN ---
Addendum entered by Paulina Wallace RD 05/17/22 13:01: REVIEWED LABS PT WITH A1C 7.3% PT AND FAMILY MEMBER REPORTED PREVIOUS A1C LEVEL 5.9% Original Note: F/U PT RECEIVING NOCTURNAL FEEDING TO RUN FROM 9PM-8AM CONTINUOUS (11HRS TOTAL): GLUCERNA AT MAX GOAL RATE 200ML/HR X11 HRS WITH 120ML FWF TID TO PROVIDE 2200KCALS (29KCLAS/KG BASED ON IBW), 92G PROTEIN (1.2G/KG), 2237ML TOTAL WATER FROM FORMULA AND FLUSH (30ML/KG) SPOKE WITH PT AND FAMILY MEMBER WHO REPORTED NO ISSUES OVER NIGHT WITH THE TRAIL OF TF PT AND FAMILY MEMBER EXPRESSED DESIRE TO CONTINUE WITH DM TF FORMULA FOR IMPROVED BS CONTROL AND NOCTURNAL FEEDING UPON DISCHARGE DISCUSSED WITH CM FOR DC PLANNING (PT WILL NEED TF PUMP) MONITOR TOLERANCE, RESIDUALS AND LYTES
[2022-05-17 12:57] LABS: RBC Pleural Fluid < 0.002 X10*3/uL
[2022-05-17 12:57] LABS: Glucose, Whole Blood 173 mg/dL (60-115)
[2022-05-17 13:31] LABS: BF Shift QC OK YES; Lymphocytes Pleural Fluid 33 %; Man Diluent Bkgrd OK YES; Monocytes Pleural Fluid 10 %; Neutrophils Pleural Fluid 16 %; Other Cells Plerual Fl 41 %
--- NOTE | 2022-05-17 14:23 | P.PNIM_ITS ---
Subjective Subjective Date of Service: 05/17/22 Interval History: Seen and evaluated this morning Feels much better already, Thoracentesis done repeated XR showing small effusion weaning down oxygen requirement Making good amount of urine No other overnight events Review of Systems Review of Systems: Yes all other systems are reviewed and are negative Physical Exam Vital Signs: Vital Signs: Last Vital Signs Temp 99.5 F 05/17/22 08:00 Pulse 66 05/17/22 10:37 Resp 18 05/17/22 08:00 BP 134/63 05/17/22 10:37 Pulse Ox 94 05/17/22 10:37 O2 Del Method 05/17/22 08:00 O2 Flow Rate 2 05/17/22 08:00 BMI result Body Mass Index 27.0 Const: Other: Constitutional : Awake, interactive, not in distress Neck : Normal inspection, Supple Cardiovascular : RRR, no JVP , trace lower extremity edema Respiratory : good bilateral air entry, no crackles, wheezes or rhonchi Gastrointestinal: soft, lax, Normal bowel sounds, Non tender Skin : Warm, Dry Neurological : Alert & oriented x3, No focal deficit Objective Data Active Medications Atorvastatin Calcium (Atorvastatin Calcium 10 Mg Tablet) 10 mg G-TUBE BEDTIME [facility] Last Admin: 05/16/22 21:41 Dose: 10 mg Documented By: IMMANUEL Dextrose (Dextrose 50 % 25 Gm/50 Ml Syringe) 25 gm IVPUSH Q15M PRN; Protocol PRN Reason: per Hypoglycemia Standing Ord. Last Admin: 05/17/22 12:37 Dose: 25 gm Documented By: ERIK Enoxaparin Sodium (Enoxaparin Sodium 80 Mg/0.8 Ml Syringe) 80 mg SUBCUT Q12H [facility] Last Admin: 05/16/22 21:43 Dose: Not Given Documented By: IMMANUEL Non-Admin Reason: Physician Held Med Furosemide (Furosemide 40 Mg/4 Ml Vial) 40 mg IVPUSH BID@0900,1800 [facility]; Protocol Last Admin: 05/17/22 09:43 Dose: 40 mg Documented By: ERIK Glucose (Glucose Gel 15 Gm Gel..Gram.) 15 gm PO Q15M PRN; Protocol PRN Reason: per Hypoglycemia Standing Ord. Insulin Human Lispro (Insulin Lispro 100 Unit/Ml 3 Ml Vial) 0 unit SUBCUT QIDACHS [facility]; Protocol Last Admin: 05/17/22 13:18 Dose: Not Given Documented By: ERIK Non-Admin Reason: No Insulin Coverage Pharmacy Consult (Consult Rx Perform Med Rec) 1 each MISCELLANE ONCE PRN PRN Reason: Consult order Labs 05/17/22 07:04 05/17/22 07:04 Labs: Laboratory Results - last 24 hr 05/16/22 05/16/22 05/16/22 14:56 16:26 17:13 MCV MCH MCHC RDW Plt Count MPV Absolute Nucleated RBC Nucleated RBC % (auto) Anion Gap Estim Creat Clear Calc Estimated GFR POC Glucose 69 108 Random Glucose Estimat Average Glucose 163 Hemoglobin A1c % 7.3 Calcium B-Natriuretic Peptide Pleural WBC Pleural RBC Pleural Neutrophils Pleural Lymphocytes Pleural Monocytes Pleural Other Cells 05/16/22 05/17/22 05/17/22 20:39 07:04 07:04 MCV 89.6 MCH 26.9 L MCHC 30.0 L RDW 17.3 H Plt Count 255 MPV 11.4 Absolute Nucleated RBC 0.000 Nucleated RBC % (auto) 0.0 Anion Gap 14 Estim Creat Clear Calc 40.6 Estimated GFR 48 POC Glucose 112 Random Glucose 180 H Estimat Average Glucose Hemoglobin A1c % Calcium 9.4 B-Natriuretic Peptide Pleural WBC Pleural RBC Pleural Neutrophils Pleural Lymphocytes Pleural Monocytes Pleural Other Cells 05/17/22 05/17/22 05/17/22 07:04 08:15 12:30 MCV MCH MCHC RDW Plt Count MPV Absolute Nucleated RBC Nucleated RBC % (auto) Anion Gap Estim Creat Clear Calc Estimated GFR POC Glucose 188 H 58 L* Random Glucose Estimat Average Glucose Hemoglobin A1c % Calcium B-Natriuretic Peptide 84 Pleural WBC Pleural RBC Pleural Neutrophils Pleural Lymphocytes Pleural Monocytes Pleural Other Cells 05/17/22 05/17/22 12:33 12:52 MCV MCH MCHC RDW Plt Count MPV Absolute Nucleated RBC Nucleated RBC % (auto) Anion Gap Estim Creat Clear Calc Estimated GFR POC Glucose 173 H Random Glucose Estimat Average Glucose Hemoglobin A1c % Calcium B-Natriuretic Peptide Pleural WBC 0.251 Pleural RBC < 0.002 Pleural Neutrophils 16 Pleural Lymphocytes 33 Pleural Monocytes 10 Pleural Other Cells 41 Assessment and Plan (1) CHF (congestive heart failure): Status: Acute (2) Hypoxia: Status: Acute Plan 82M PMH permanent afib, 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, DM, hld, CKD II, presented with sob Acute hypoxic respiratory failure secondary to acute unspecified CHF complicated by bilateral pleural effusions right greater than left Continue IV Lasix Pending echo showed EF of 60% with severe septal assymmetric hypertrophy Hold on right thoracentesis Cardio eval appreciated acute kidney injury on CKD II seems cardiorenal, improving Continue diurese monitor BMP hyperkalemia Improve Continue IV Lasix, monitor permanent atrial fibrillation rate controlled without meds, monitor on tele hold Eliquis, will give therapeutic Lovenox for planned thoracentesis, last Eliquis dose a.m. of 05/15/2022 history of laryngeal cancer status post gastrostomy tube due to dysphagia continue G-tube feeds nutrition eval for guidance diabetes hold metformin insulin, monitor point of cares hyperlipidemia continue statin DVT prophylaxis-on Lovenox DNR/DNI Patient will need overnight hospital stay for treatment of heart failure given high risk for further decompensation due to advanced age, frailty pending safe discharge plan and weaning of oxygen Time Spent With Patient Time: Total time managing care of this patient today ____ minutes. Quality Stroke Does the patient have a stroke diagnosis?: No VTE Prior VTE?: No VTE Risk Level:: Medical - moderate - high VTE Device Contraindication: Treatment Not Indicated VTE Drug Contraindication: N/A - Med Ordered
[2022-05-17 16:34] LABS: Glucose, Whole Blood 97 mg/dL (60-115)
[2022-05-17] MEDS: Atorvastatin Calcium 10 MG TABLET G-TUBE (20:44)
[2022-05-17 20:55] LABS: Glucose, Whole Blood 121 mg/dL (60-115)
[2022-05-18 03:44] VITALS: BP 107/59; PULSE 61; RESP 20; TEMP 36.9; O2SAT 97
[2022-05-18 04:13] LABS: Glucose Pleural Fluid 159 MG/DL; LDH Pleural Fluid 103 U/L; Total Protein Pleural Fluid 3.1 GM/DL
[2022-05-18 07:36] LABS: Glucose, Whole Blood 112 mg/dL (60-115)
[2022-05-18 08:00] VITALS: BP 151/66; PULSE 88; RESP 20; TEMP 36.6; O2SAT 99
[2022-05-18] MEDS: Furosemide 40 MG/4 ML VIAL IVPUSH (09:04)
[2022-05-18 09:24] VITALS: O2SAT 95
--- NOTE | 2022-05-18 10:57 | P.PNCA_ITS ---
Subjective Subjective Date of Service: 05/18/22 Interval history: Generally feeling okay. Symptoms overall improved. Review of Systems Review of Systems Yes all other systems are reviewed and are negative Constitutional: Reports as per HPI and Reports no additional constitutional complaints Eyes: Reports as per HPI and Denies no additional eye complaints Denies system reviewed and no additional complaints, except as documented and Reports as per HPI Cardiovascular: Reports as per HPI, Reports no additional cardiovascular complaints, Denies acrocyanosis, Denies cool extremities, Denies chest pain, Denies leg edema, Denies lightheadedness, Denies palpitations and Denies dyspnea Respiratory: Reports as per HPI, Denies no additional respiratory complaints and Denies dyspnea Gastrointestinal: Reports as per HPI and Denies no additional gastrointestinal complaints Genitourinary: Reports no additional male genitourinary complaints and Reports as per HPI Musculoskeletal: Reports no additional musculoskeletal complaints and Reports as per HPI Skin/Breast: Reports system reviewed and no additional complaints, except as docu Reports system reviewed and no additional complaints, except as documented and Reports as per HPI Psychiatric: Reports no additional psychiatric complaints and Reports as per HPI Endocrine: Reports no additional endocrine complaints, Reports as per HPI and Denies palpitations Hematologic/Lymphatic: Reports no additional hematologic/lymphatic complaints and Reports as per HPI Allergic/Immunologic: Reports no additional allergic/immunologic complaints and Reports as per HPI Physical Exam Vital Signs: Last Vital Signs Temp 97.8 F 05/18/22 08:00 Pulse 88 05/18/22 08:00 Resp 20 05/18/22 08:00 BP 151/66 H 05/18/22 08:00 Pulse Ox 95 05/18/22 09:24 O2 Del Method 05/18/22 09:24 O2 Flow Rate 1 05/18/22 08:00 BMI result Body Mass Index 27.0 Const General: comfortable and no acute distress Orientation/consciousness: patient oriented x3 HEENT Other: Unremarkable Head: Yes normal to inspection Neck Neck: Yes normal visual inspection Chest Chest palpation & inspection: normal inspection of the chest Resp Auscultation: clear to auscultation bilaterally Cardio Palpation: normal PMI Heart sounds: S1 normal heart sound present, S2 normal heart sound present, no gallops, no murmurs and no rubs GI Palpation (GI): Soft to palpation Back/Spine/Pelvis Other: unremarkable Skin General skin exam: no rashes or lesions noted Neuro General: patient oriented x3 Extrem General: Yes normal to inspection Psych Mental Status: mental status grossly normal Objective Labs and Meds 05/17/22 07:04 05/17/22 07:04 Lab results: Laboratory Results - last 24 hr 05/17/22 05/17/22 05/17/22 11:23 12:30 12:33 POC Glucose 58 L* Pleural WBC 0.251 Pleural RBC < 0.002 Pleural Neutrophils 16 Pleural Lymphocytes 33 Pleural Monocytes 10 Pleural Other Cells 41 Pleural Total Protein 3.1 Pleural LDH 103 Pleural Glucose 159 05/17/22 05/17/22 05/17/22 12:52 16:29 20:52 POC Glucose 173 H 97 121 H Pleural WBC Pleural RBC Pleural Neutrophils Pleural Lymphocytes Pleural Monocytes Pleural Other Cells Pleural Total Protein Pleural LDH Pleural Glucose 05/18/22 07:27 POC Glucose 112 Pleural WBC Pleural RBC Pleural Neutrophils Pleural Lymphocytes Pleural Monocytes Pleural Other Cells Pleural Total Protein Pleural LDH Pleural Glucose Imaging Radiologist's impression: Impressions Chest X-Ray 05/17/22 11:48 IMPRESSION: No postprocedure pneumothorax status post right thoracentesis. Small left pleural effusion. Thoracentesis Ultrasound 05/17/22 11:50 IMPRESSION: Right thoracentesis with removal of 1.6 L of clear yellow fluid. Chest X-Ray 05/18/22 07:50 IMPRESSION: Small left pleural effusion with mild left basilar atelectasis. No pneumothorax. Progress Note: A&P Assessment and plan (1) Acute right-sided CHF (congestive heart failure): Status: Acute Assessment and Plan: Echocardiogram with LVEF of 65%. Severe asymmetric septal hypertrophy. Moderately increased right ventricular size with moderately diminished function. No significant valvular issues. Status post right-sided thoracentesis with removal of 1.6 L of clear yellow fluid. Clinically, he seems better. Continue low-dose diuretics. Repeat BMP in a few days as outpatient. (2) Atrial fibrillation: Status: Acute Assessment and Plan: Rate controlled. On anticoagulation. Plan Can follow up with his own plastic panel installer at [facility]. Had a long discussion with at bedside regarding heart failure management especially considering the fact that he is also on tube feeds. May need outpatient nutritional support to adjust this according to his fluid status. Time Spent With Patient Time: Total time managing care of this patient today 45 minutes. Progress Note: Quality Stroke Does the patient have a stroke diagnosis?: No Procedures Date of Service Date of Service: 05/18/22
[2022-05-18 11:27] LABS: Glucose, Whole Blood 124 mg/dL (60-115)
[2022-05-18 11:41] VITALS: BP 122/60; PULSE 78; RESP 20; TEMP 36.7; O2SAT 90
--- NOTE | 2022-05-18 11:57 | P.F2F_ITS ---
Service Date Service Date: 05/18/22 Encounter Date of encounter: 05/18/22 Reasons for Services Signs and symptoms assessed: Physical deconditioning Heart failure exacerbation Reason for prison: teach disease management Reason for physical therapy: home safety and mobility and therapeutic exercises Homebound: Leaving the home is medically contraindicated at this time without the asist of a device and/or another person due th the listed conditions above and below. Reason homebound: unsteady gait / fall risk Certification: Based on the above findings, I certify that this patient is confined to the home and needs intermittent prison care, physical therapy and/or speech therapy, or continues to need occupational therapy. The patient is under my care, and I have initiated the establishment of the plan of care. The patient will be followed by a physician who will periodically review the plan of care. Time Spent With Patient Time: Total time managing care of this patient today ____ minutes.
--- NOTE | 2022-05-18 11:57 | PM.DS ---
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 patient reports 30lbs weight gain over 1 month, increasing lower extremity edema, abd bloating. sob worse on exertion, denies orthopnea, denies chest pain. underwent CT chest which showed large right pleural effusion and told to go to ED. in ED found to be hypoxic to 70s, lindsay - creat 1.62, mild hyperkalemia 5.5, bnp 1365. ct chest with bilateral pleural effusions, r>L with compressive atelectasis, was given lasix and weaned down to 2L NC. Hospital course The patient was admitted to the hospital for treatment of Acute hypoxic respiratory failure secondary to acute unspecified CHF complicated by bilateral pleural effusions right greater than left. He was noted to need oxygen supplement. Treated with IV Lasix as he was evaluated by Cardiology team. Thoracentesis was done removing more than 1 L of transudate fluid from his right side with repeated x-ray showing no evidence of effusion or pneumothorax. echo showed EF of 60% with severe septal assymmetric hypertrophy. Cardiology recommended to continue diuresis gently and to follow-up with primary rfid analyst as outpatient. The patient was evaluated for home O2 and his saturation was around 90 and did not drop enough to be qualified for home oxygen with activity. Noted to have a drop in his O2 sat while sleeping but both the patient and his reported being aware of that and refused to do sleep study or have machine at night. Gas And Oil Servicer discussed his tube feed and arrangement will be made as outpatient for it. Advised to discuss water content to avoid fluid overload in the future. Noted to have mild worsening of his CKD 3. Believed to be secondary to cardiorenal syndrome which improved with diuresis close to his baseline. Had hyperkalemia on admission that was treated. Discuss tube feeds with derrick boat lever operator to minimize fluid overload Continue Lasix as prescribed To follow up with Cardiology as outpatient Time Spent with Patient Time attestation: Total time managing care of this patient today ____ minutes. Discharge coordination time: Greater than 30 minutes Quality: Safe Use of Opioids Does Pt have an Active Cancer Diagnosis on the Problem List?: Yes Opioid Measure Date for [facility] Report: 04/20/22 Opioid Measure Time for [facility] Report: 15:29 Quality: Stroke Does the patient have a stroke diagnosis?: No Physical Exam Vital Signs: Vital Signs: Last Vital Signs Temp 98.1 F 05/18/22 11:41 Pulse 78 05/18/22 11:41 Resp 20 05/18/22 11:41 BP 122/60 05/18/22 11:41 Pulse Ox 90 L 05/18/22 11:41 O2 Del Method 05/18/22 11:41 O2 Flow Rate 1 05/18/22 08:00 BMI result Body Mass Index 27.0 Const: Other: Constitutional : Awake, interactive, not in distress Neck : Normal inspection, Supple Cardiovascular : RRR, no JVP , no lower extremity edema Respiratory : good bilateral air entry, no crackles, wheezes or rhonchi, on room air Gastrointestinal: soft, lax, Normal bowel sounds, Non tender Skin : Warm, Dry Neurological : Alert & oriented x3, No focal deficit DS: Data Data Completed and Pending Labs on day of discharge: Laboratory Results - last 24 hr 05/17/22 05/17/22 05/17/22 11:23 12:30 12:33 POC Glucose 58 L* Pleural WBC 0.251 Pleural RBC < 0.002 Pleural Neutrophils 16 Pleural Lymphocytes 33 Pleural Monocytes 10 Pleural Other Cells 41 Pleural Total Protein 3.1 Pleural LDH 103 Pleural Glucose 159 05/17/22 05/17/22 05/17/22 12:52 16:29 20:52 POC Glucose 173 H 97 121 H Pleural WBC Pleural RBC Pleural Neutrophils Pleural Lymphocytes Pleural Monocytes Pleural Other Cells Pleural Total Protein Pleural LDH Pleural Glucose 05/18/22 05/18/22 07:27 11:09 POC Glucose 112 124 H Pleural WBC Pleural RBC Pleural Neutrophils Pleural Lymphocytes Pleural Monocytes Pleural Other Cells Pleural Total Protein Pleural LDH Pleural Glucose Preliminary micro results at discharge 05/17/22 11:23 Anaerobic Culture - Preliminary Thoracentesis Fluid No growth to date. Body Fluid Culture - Preliminary No growth after 1 day Imaging Chest x-ray: Radiologist's impression: ITS Impressions Chest CT 05/15/22 12:59 IMPRESSION: Bilateral pleural effusions, right greater than left with associated compressive atelectasis. Fleischner guidelines were followed. Chest X-Ray 05/17/22 11:48 IMPRESSION: No postprocedure pneumothorax status post right thoracentesis. Small left pleural effusion. Thoracentesis Ultrasound 05/17/22 11:50 IMPRESSION: Right thoracentesis with removal of 1.6 L of clear yellow fluid. Chest X-Ray 05/18/22 07:50 IMPRESSION: Small left pleural effusion with mild left basilar atelectasis. No pneumothorax. Discharge Plan Discharge Anticipated Discharge Date/Time: 05/18/22 11:54 Patient Disposition: Home Health Service Discharge Diagnosis: Heart failure exacerbation Pleural effusion Referrals: Jem Glynn PA [Primary Care Provider] - 1 Week Discharge Medications: Continued metformin 500 mg tablet 2 tab PO BID simvastatin 20 mg tablet 1 tab PO BEDTIME furosemide 20 mg tablet 1 tab PO DAILY Eliquis 5 mg tablet 1 tab PO BID Discharge Orders: Discharge Order (Routine); Ordered 05/18/22 Ordered By: Barron Cunha Diet: Low salt diet Activity on Discharge: As tolerated Stand Alone Forms: Patient Portal Discharge page Care Plan Goals: Read below Health Concerns: Read below Plan of Treatment: Read below Assessment: You were admitted to the hospital for evaluation of difficulty breathing. Found to have an evidence of pleural effusions that was treated with IV Lasix and removal of the pleural fluid by radiologist with good response as you were weaned down the oxygen supplement to room air and was able to participate with physical therapy. Discuss tube feeds with derrick boat lever operator to minimize fluid overload Continue Lasix as prescribed To follow up with Cardiology as outpatient Discharge Date/Time: 05/18/22 13:52
[2022-05-18 12:41] VITALS: PULSE 86; PULSE 87; O2SAT 90; O2SAT 93; O2SAT 97
--- NOTE | 2022-05-18 14:08 | MHC.CM.PN ---
Patient has been medically cleared for dc to home today. GAYATRI has sent all requested documentation to [place] r/t [facility]. GAYATRI was unable to secure a VNA for Patient; was made aware.
--- NOTE | 2022-05-18 14:58 | MHC.CM.PN ---
Signed script for new [employer] formula has been successfully faxed to STEVE @ [phone] and uploaded into [employer] and sent to [place] via [employer] as well.
== END 2022-05-18 13:52 | disposition home health service (06) | DRG 291 ==
LOC: HO.ED 13:31 → HO.EDOVER 16:03 → HO.IMC 19:49
PROVIDERS: Physician Assistant; Physician Assistant Medical; Radiology Diagnostic Radiology; Admitting Provider Internal Medicine; Emergency Provider Emergency Medicine; PCP Physician Assistant Medical; Visit Provider Student in an Organized Health Care Education/Training Program
PROC: 0W993ZZ Drainage of Right Pleural Cavity, Percutaneous Approach (ICD-10-PCS; principal; 2022-05-17 10:00)
DX: I50.811 Acute right heart failure (principal); J96.01 Acute respiratory failure with hypoxia; J91.8 Pleural effusion in other conditions classified elsewhere; N17.9 Acute kidney failure, unspecified; I48.21 Permanent atrial fibrillation; N18.2 Chronic kidney disease, stage 2 (mild); E87.5 Hyperkalemia; Z66 Do not resuscitate; E11.22 Type 2 diabetes mellitus with diabetic chronic kidney disease; E78.5 Hyperlipidemia, unspecified; Z20.822 Contact with and (suspected) exposure to COVID-19; Z85.21 Personal history of malignant neoplasm of larynx; Z93.1 Gastrostomy status; Z87.891 Personal history of nicotine dependence; Z88.8 Allergy status to other drugs, medicaments and biological substances; Z79.01 Long term (current) use of anticoagulants; Z79.899 Other long term (current) drug therapy
CPT/HCPCS: 32555; 36415; 71045; 71250; 80048; 80076; 82803; 82945; 82947; 83036; 83615; 83735; 83880; 84157; 84484; 85025; 85027; 85610; 85730; 87070; 87073; 87205; 87635; 89051; 93005; 93306; 97162; 99284; J1650; J1940; Q9957

== ENCOUNTER 2022-05-21 12:06 | Inpatient (IN) | payer MEDICARE, SELFPAY ==
[2022-05-21] VITALS (8 sets, daily range): BP systolic 105–116; BP diastolic 51–63; PULSE 68–72; RESP 14–18; TEMP 36.3–36.5; O2SAT 71–100; BMI 22.1
--- NOTE | ~2022-05-21 | CT_ITS ---
EXAMINATION: CT CHEST WITHOUT IV CONTRAST CT ABDOMEN AND PELVIS WITHOUT IV CONTRAST CLINICAL INFORMATION: Shortness of breath and hypoxia. Abdominal pain. COMPARISON: Chest CT from 05/15/2022. CT abdomen and pelvis from 09/20/2021. Renal ultrasound from 03/13/2022. TECHNIQUE: Noncontrast multidetector CT imaging examination of the chest, abdomen and pelvis was performed. Axial images are displayed at 0.6 mm and 5 mm slice thickness. Coronal and sagittal reformatted images were generated at the technologist's workstation and submitted for review. This CT examination was performed using dose optimization techniques as appropriate, variously including the following: *Automated exposure control *Adjustment of mA and/or kV according to patient size (this includes techniques or standardized protocols for targeted exams where dose is matched to indication/reason for exam; i.e. extremities or head) *Use of iterative reconstruction technique DLP: 879 mGy-cm FINDINGS: CHEST - LUNGS AND PLEURA: The moderate right and small left pleural effusion have decreased in size compared to 05/15/2022. No pneumothorax. Passive atelectasis in the dependent aspect of each lower lobe. The groundglass opacities in the dependent aspect of each lung are nonspecific and could be from atelectasis or pneumonitis. No new pulmonary abnormality compared to 05/15/2022. Mucus is seen along the right lateral tracheal wall. Mild amount of mucus is present along the wall of the right mainstem bronchus. No evidence of aspirated secretions in lower lobe bronchi. MEDIASTINUM/LOWER NECK: The heart size is normal. No pericardial effusion. Three-vessel coronary artery atherosclerotic calcification is present. Thoracic aorta atherosclerosis without aneurysm. Pulmonary arteries are normal in size. The esophagus and thyroid gland are grossly unremarkable. LYMPHATICS: No pathologic sized axillary, hilar or mediastinal lymph nodes. CHEST WALL/BONES OF THORAX: No chest wall mass or hematoma. No acute findings within the degenerated thoracic spine. The thoracic vertebra have preserved height and alignment. ABDOMEN AND PELVIS - HEPATOBILIARY: Liver has normal size and contour. Several cysts are present in the liver; these remain unchanged compared to 09/20/2021, including a 2.1 cm cyst that has mild septal calcification. No interval development of a suspicious liver lesion. PANCREAS: No edema, mass or pancreatic ductal dilatation. SPLEEN: Normal. ADRENAL GLANDS: Normal. KIDNEYS AND URETERS: Simple cysts of both kidneys. No renal imaging follow-up is recommended for simple cysts. 0.9 cm stone of the right renal pelvis has density in the range of 750 - 950 HU and is located 10.5 cm deep from the skin surface at the posterior axillary line. This appears to correspond to the stone that was previously located in the lower pole calyx. 0.4 cm calyceal stone is present in the mid left kidney (coronal reformatted image 49 of 74). The ureters are unremarkable. BOWEL AND PERITONEUM: Gastrostomy feeding tube is in satisfactory position. No dilated bowel loops. No focal bowel wall thickening. No pericolonic fat stranding, free fluid or pneumoperitoneum. Diverticula of the colon without evidence of diverticulitis. ABDOMINAL WALL: Chronic mild protrusion of extraperitoneal fat into the inguinal canals. VESSELS: Atherosclerosis of the abdominal aorta and iliac arteries without aneurysm. No retroperitoneal hematoma. LYMPH NODES: No pathologic sized lymph nodes in the abdomen or pelvis. No inguinal lymphadenopathy. BLADDER AND PELVIC VISCERA: No evidence of bladder mass or stone. There is chronic mild diffuse thickening of the bladder wall (likely mild detrusor muscle hypertrophy). No bladder diverticula. Prostate gland is chronically, mildly enlarged. No pelvic free fluid. OTHER MUSCULOSKELETAL: No acute findings within the degenerated spine. No suspicious bone lesions. CT/CT abdomen pelvis wo IV con IMPRESSION: * Bilateral pleural effusions have decreased in size compared to 05/15/2022. * The persistent groundglass opacities in lower lobes are nonspecific and could represent atelectasis or pneumonia. * No acute imaging abnormalities in the abdomen or pelvis compared to 09/20/2021. * Bilateral renal stones are present. Interval migration of a stone from the lower pole into the right renal pelvis. However, no hydronephrosis. * Colonic diverticulosis without diverticulitis. 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
--- NOTE | 2022-05-21 12:37 | ED_ITS ---
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 Denies known fever, chills, N/V/D Onset (ago): hour(s) Related Data Home Medications Medication Instructions Recorded Confirmed apixaban 5 mg tablet (Eliquis) 1 tab PO BID 05/15/22 05/21/22 furosemide 20 mg tablet 1 tab PO DAILY 05/15/22 05/21/22 metformin 500 mg tablet 2 tab PO BID 05/15/22 05/21/22 simvastatin 20 mg tablet 1 tab PO BEDTIME 05/15/22 05/21/22 Previous Rx's Medication Instructions Recorded amoxicillin 875 mg-potassium 1 tab PO BID #6 tabs 05/22/22 clavulanate 125 mg tablet Allergies Allergy/AdvReac Type Severity Reaction Status Date / Time fluconazole AdvReac Rash Verified 09/13/21 21:29 Review of Systems Review of Systems: Constitutional: No Fever, No Chills, No Fatigue, No Malaise ENT/Mouth: No Ear Pain, No Nasal Congestion, No sore throat, No Rhinorrhea, No Swallowing Difficulty Eyes: No Eye Pain, No Swelling, No Redness, No Vision Changes Cardiovascular: No Chest Pain, + SOB, No Dyspnea on Exertion, No Orthopnea, No Edema Respiratory: No Cough, No Sputum, No Wheezing, No Dyspnea Gastrointestinal: No Nausea, No Vomiting, No Diarrhea, No Constipation, +Abdominal pain Genitourinary: No Dysuria, No Urinary Frequency, No Hematuria, No Flank Pain Musculoskeletal: No joint pain, No Myalgias, No Joint Swelling Skin: No Skin Lesions, No rash Neuro: No Weakness, No Dizziness, No Headache Yes all other systems are reviewed and are negative Constitutional: Constitutional: Reports as per [facility] Past Medical History Attestation statement: The following information was validated with the patient. Medical History Atrial fibrillation Diabetes mellitus Hyperlipidemia Throat cancer Surgical History Gastrostomy in place Family History Family History Mother Cancer Social History Social History Household Members: Spouse Housing: House Do you presently have visiting nurse or other home services: No Unable to assess alcohol history related to: Unknown Alcohol intake: never Patient Tobacco Use Status: Former Tobacco user Smoked in Last 30 Days: No Second Hand Smoke Exposure: No Use of substances other than those prescribed or required for medical reasons: No Advance Directives: Yes Advance Directives on File: No Nutrition Risks: Difficulty swallowing and Receiving home tube feeding or CPN service: Yes Current occupational status: retired Physical Exam ED Vital Signs: Vital Signs - 24 hr 05/21/22 12:26 05/21/22 13:18 05/21/22 14:00 Temperature 97.6 F Pulse Rate 69 72 Respiratory Rate 16 18 Blood Pressure 114/62 105/61 Pulse Oximetry 71 L 100 Oxygen Delivery Method Room Air Nasal Cannula Oxygen Flow Rate 4 BMI result Body Mass Index 22.1 Const General: cooperative and no acute distress Limitations: no limitations HENMT Head: Yes normal to inspection and Yes atraumatic Ears: hearing grossly normal bilaterally General nose exam: Normal external nose present Face and sinus: Yes normal facial exam Eyes General: appearance normal, both eyes and all related structures EOM: EOMs intact bilaterally Neck Neck: Yes normal visual inspection and Yes no meningeal signs Chest Chest palpation & inspection: normal inspection of the chest Resp Effort & Inspection: no respiratory distress Auscultation: diminished lung sounds bilateral in the lower lung soliman Cardio Rate: regular rate Heart sounds: S1 normal heart sound present and S2 normal heart sound present GI Other: G-tube in place Inspection: Yes normal to inspection Palpation (GI): Soft to palpation, Tenderness to palpation present (GI) (diffu sely) with no rebound tenderness, no guarding and not rigid Skin Rashes: no rashes Wounds: no wounds Neuro General: tone normal and no meningeal signs Gait exam (Neuro): Normal gait present Extrem Other: 2+ LE pitting edema bilaterally Course Course Course Narrative: -1344--H&H stable. No leukocytosis. lactic acid 3.6 > Will avoid IVF due to respiratory status -1357--bicarb elevated to 45 > will obtain VBG. JESSICA with a BUN of 61 and creatinine of 1.5 -troponin 40.6 >> will obtain 3 hr repeat. BNP [address] CT chest wo IV con/CT abdomen pelvis wo IV con IMPRESSION: *? Bilateral pleural effusions have decreased in size compared to 05/15/2022. *? The persistent groundglass opacities in lower lobes are nonspecific and could represent atelectasis or pneumonia. *? No acute imaging abnormalities in the abdomen or pelvis compared to 09/20/2021. *? Bilateral renal stones are present. Interval migration of a stone from the lower pole into the right renal pelvis. However, no hydronephrosis. *? Colonic diverticulosis without diverticulitis. *? 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 > 1524--suspected aspiration pneumonia. Plan to admit for further management. Medications Administered Discontinued Medications Generic Name Dose Route Start Last Admin Trade Name Freq PRN Reason Stop Dose Admin Apixaban 5 mg 05/21/22 21:00 05/21/22 21:38 Apixaban 5 Mg Tablet PO 5 mg BID ACACIA Administration Piperacillin Sod/Tazobactam 50 mls @ 100 mls/hr 05/21/22 13:46 05/21/22 17:53 Sod 3.375 gm/ Sodium Chloride IV 05/21/22 14:15 Infused ONCE ONE Infusion Lactated Ringer's 1,000 mls @ 75 mls/hr 05/21/22 15:30 05/22/22 04:11 Lr IVCONT 75 mls/hr .[id number] ACACIA Administration Piperacillin Sod/Tazobactam 50 mls @ 100 mls/hr 05/21/22 15:45 05/21/22 16:05 Sod 3.375 gm/ Sodium Chloride IV Not Given Q6H ACACIA Piperacillin Sod/Tazobactam 50 mls @ 100 mls/hr 05/21/22 22:00 05/22/22 09:18 Sod 3.375 gm/ Sodium Chloride IV 100 mls/hr Q6H ACACIA Administration Insulin Human Lispro 0 unit 05/21/22 16:30 05/22/22 08:19 Insulin Lispro 100 Unit/Ml 3 Ml Vial SUBCUT 2 unit QIDACHS [facility] Administration Protocol Sodium Chloride 3 ml 05/21/22 16:00 05/22/22 08:19 0.9 % Sodium Chloride Flush 3 Ml Syringe IVFLUSH Not Given QSHIFT [facility] Medical Decision Making Medical Decision Making [facility] Narrative: 82-year-old male a with past medical history of AFib, 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 On exam setting 71% on RA increased to 97% on 4L NC, diminished lung sounds bibasilarly, abdomen soft diffusely tender. Bilateral LE pitting edema noted. Concern for pleural effusion re-accumulation vs pneumonia vs CHF vs ACS vs cholecystitis/lithiasis/pancreatitis/SOB or other intra-abdominal process. Lower suspicion for PE at this time Low suspicion for severe sepsis at this time Plan: EKG, labs, UA, CXR, chest/abdomen/pelvis CT, DuoNeb, admission Please refer to course for remaining clinical decision making, interpretation of labs/imaging results, and discussions with consultants and/or family members. Differential Diagnosis Differential Diagnoses: The differential diagnosis associated with the presentation includes As above Admission/Observation Consideration of admission/observation: Escalation of care including admission/observation considered Consult Healthcare Provider Management of the patient was discussed with: Hospitalist Lab Data [facility] Lab Attestation statement: I reviewed the patient's lab results. 05/21/22 13:17 05/21/22 13:17 Labs: Lab Results 05/21/22 05/21/22 05/21/22 Range/Units 13:17 13:17 13:17 WBC 6.3 (4.8-10.8) X10*3/uL RBC 4.50 L (4.60-5.80) X10*6/uL Hgb 12.2 L (14.0-18.0) g/dl Hct 41.4 L (42.0-52.0) % MCV 92.0 (80.0-98.0) fL MCH 27.1 (27.0-33.0) pg MCHC 29.5 L (31.0-36.0) g/dl RDW 16.6 H (11.0-16.0) % Plt Count 273 (160-400) X10*3/uL MPV 10.8 (9.4-12.4) fL Immature Gran % (Auto) 0.2 (0.0-0.4) % Neut % (Auto) 79.9 H (45-73) % Lymph % (Auto) 7.1 L (20-40) % [place] % (Auto) 9.4 (2-11) % Eos % (Auto) 2.9 (0-4) % Baso % (Auto) 0.5 (0-2) % Lymph # (Auto) 0.5 L (1.2-4.9) X10*3/uL [place] # (Auto) 0.6 (0.1-1.2) X10*3/uL Eos # (Auto) 0.2 (0.0-0.4) X10*3/uL Baso # (Auto) 0.0 (0.0-0.2) X10*3/uL Abs Immat Gran (auto) 0.01 (0.00-0.03) X10*3/uL Absolute Neuts (auto) 5.1 (2.0-8.3) x10*3/uL Absolute Nucleated RBC 0.000 (0.0-0.012) X10*3/uL Nucleated RBC % (auto) 0.0 (0.0-0.2) /100WBC PT 18.1 H (10.0-13.1) SEC INR 1.6 H (0.9-1.1) VBG pH (7.32-7.43) VBG pCO2 mmHg VBG pO2 mmHg VBG HCO3 (22-26) mmol/L VBG O2 Saturation % VBG Base Excess mmol/L Sodium 143 (135-145) mmol/L Potassium 4.2 (3.3-5.1) mmol/L Chloride 88 L (96-108) mmol/L Carbon Dioxide 45 H* (22-29) mmol/L Anion Gap 14 (12-20) BUN 61 H (9-16) mg/dL Creatinine 1.54 H (0.5-1.4) mg/dL Estim Creat Clear Calc 35.8 Estimated GFR 43 Random Glucose 230 H (60-115) mg/dL Lactic Acid (0.5-2.0) mmol/L Lactic Acid F/U @ 2Hr (0.5-2.0) mmol/L Calcium 8.9 (8.4-10.2) mg/dL Magnesium 1.7 (1.6-2.6) mg/dL Total Bilirubin 1.3 H (0.0-1.0) mg/dL Direct Bilirubin 0.5 (0.0-0.5) mg/dL AST 22 (5-37) U/L ALT 13 (0-40) U/L Alkaline Phosphatase 81 (39-117) U/L Troponin I High Sens (<3.5-35.0) ng/L B-Natriuretic Peptide (<100) pg/mL Total Protein 6.5 (6.5-8.0) g/dL Albumin 3.1 L (3.5-5.0) g/dL Lipase 62 (8-78) U/L Urine Color Urine Appearance Urine pH (5.0-9.0) Ur Specific [place] (1.005-1.025) Urine Protein (Neg-Trace) mg/dL Urine Glucose (UA) (Negative) mg/dL Urine Ketones (Negative) mg/dL Urine Blood (Negative) Urine Nitrite (Negative) Ur Leukocyte Esterase (Negative) Urine RBC (0-2) /HPF Urine WBC (0-5) /HPF Ur Squamous Epith Cells (0-2) /HPF Urine Bacteria (None Seen) Hyaline Casts (0-2) /LPF Influenza Type A (PCR) (Negative) Influenza Type B (PCR) (Negative) RSV RNA Qual (PCR) (Negative) SARS-CoV-2 RNA (RT-PCR) (Negative) 05/21/22 05/21/22 05/21/22 Range/Units 13:17 13:17 13:17 WBC (4.8-10.8) X10*3/uL RBC (4.60-5.80) X10*6/uL Hgb (14.0-18.0) g/dl Hct (42.0-52.0) % MCV (80.0-98.0) fL MCH (27.0-33.0) pg MCHC (31.0-36.0) g/dl RDW (11.0-16.0) % Plt Count (160-400) X10*3/uL MPV (9.4-12.4) fL Immature Gran % (Auto) (0.0-0.4) % Neut % (Auto) (45-73) % Lymph % (Auto) (20-40) % [place] % (Auto) (2-11) % Eos % (Auto) (0-4) % Baso % (Auto) (0-2) % Lymph # (Auto) (1.2-4.9) X10*3/uL [place] # (Auto) (0.1-1.2) X10*3/uL Eos # (Auto) (0.0-0.4) X10*3/uL Baso # (Auto) (0.0-0.2) X10*3/uL Abs Immat Gran (auto) (0.00-0.03) X10*3/uL Absolute Neuts (auto) (2.0-8.3) x10*3/uL Absolute Nucleated RBC (0.0-0.012) X10*3/uL Nucleated RBC % (auto) (0.0-0.2) /100WBC PT (10.0-13.1) SEC INR (0.9-1.1) VBG pH (7.32-7.43) VBG pCO2 mmHg VBG pO2 mmHg VBG HCO3 (22-26) mmol/L VBG O2 Saturation % VBG Base Excess mmol/L Sodium (135-145) mmol/L Potassium (3.3-5.1) mmol/L Chloride (96-108) mmol/L Carbon Dioxide (22-29) mmol/L Anion Gap (12-20) BUN (9-16) mg/dL Creatinine (0.5-1.4) mg/dL Estim Creat Clear Calc Estimated GFR Random Glucose (60-115) mg/dL Lactic Acid 3.6 H* (0.5-2.0) mmol/L Lactic Acid F/U @ 2Hr (0.5-2.0) mmol/L Calcium (8.4-10.2) mg/dL Magnesium (1.6-2.6) mg/dL Total Bilirubin (0.0-1.0) mg/dL Direct Bilirubin (0.0-0.5) mg/dL AST (5-37) U/L ALT (0-40) U/L Alkaline Phosphatase (39-117) U/L Troponin I High Sens 40.6 H (<3.5-35.0) ng/L B-Natriuretic Peptide 556 H (<100) pg/mL Total Protein (6.5-8.0) g/dL Albumin (3.5-5.0) g/dL Lipase (8-78) U/L Urine Color Urine Appearance Urine pH (5.0-9.0) Ur Specific [place] (1.005-1.025) Urine Protein (Neg-Trace) mg/dL Urine Glucose (UA) (Negative) mg/dL Urine Ketones (Negative) mg/dL Urine Blood (Negative) Urine Nitrite (Negative) Ur Leukocyte Esterase (Negative) Urine RBC (0-2) /HPF Urine WBC (0-5) /HPF Ur Squamous Epith Cells (0-2) /HPF Urine Bacteria (None Seen) Hyaline Casts (0-2) /LPF Influenza Type A (PCR) (Negative) Influenza Type B (PCR) (Negative) RSV RNA Qual (PCR) (Negative) SARS-CoV-2 RNA (RT-PCR) (Negative) 05/21/22 05/21/22 05/21/22 Range/Units 13:17 14:24 15:41 WBC (4.8-10.8) X10*3/uL RBC (4.60-5.80) X10*6/uL Hgb (14.0-18.0) g/dl Hct (42.0-52.0) % MCV (80.0-98.0) fL MCH (27.0-33.0) pg MCHC (31.0-36.0) g/dl RDW (11.0-16.0) % Plt Count (160-400) X10*3/uL MPV (9.4-12.4) fL Immature Gran % (Auto) (0.0-0.4) % Neut % (Auto) (45-73) % Lymph % (Auto) (20-40) % [place] % (Auto) (2-11) % Eos % (Auto) (0-4) % Baso % (Auto) (0-2) % Lymph # (Auto) (1.2-4.9) X10*3/uL [place] # (Auto) (0.1-1.2) X10*3/uL Eos # (Auto) (0.0-0.4) X10*3/uL Baso # (Auto) (0.0-0.2) X10*3/uL Abs Immat Gran (auto) (0.00-0.03) X10*3/uL Absolute Neuts (auto) (2.0-8.3) x10*3/uL Absolute Nucleated RBC (0.0-0.012) X10*3/uL Nucleated RBC % (auto) (0.0-0.2) /100WBC PT (10.0-13.1) SEC INR (0.9-1.1) VBG pH (7.32-7.43) VBG pCO2 mmHg VBG pO2 mmHg VBG HCO3 (22-26) mmol/L VBG O2 Saturation % VBG Base Excess mmol/L Sodium (135-145) mmol/L Potassium (3.3-5.1) mmol/L Chloride (96-108) mmol/L Carbon Dioxide (22-29) mmol/L Anion Gap (12-20) BUN (9-16) mg/dL Creatinine (0.5-1.4) mg/dL Estim Creat Clear Calc Estimated GFR Random Glucose (60-115) mg/dL Lactic Acid (0.5-2.0) mmol/L Lactic Acid F/U @ 2Hr 4.0 H* (0.5-2.0) mmol/L Calcium (8.4-10.2) mg/dL Magnesium (1.6-2.6) mg/dL Total Bilirubin (0.0-1.0) mg/dL Direct Bilirubin (0.0-0.5) mg/dL AST (5-37) U/L ALT (0-40) U/L Alkaline Phosphatase (39-117) U/L Troponin I High Sens (<3.5-35.0) ng/L B-Natriuretic Peptide (<100) pg/mL Total Protein (6.5-8.0) g/dL Albumin (3.5-5.0) g/dL Lipase (8-78) U/L Urine Color Yellow Urine Appearance Clear Urine pH 8.5 (5.0-9.0) Ur Specific [place] 1.015 (1.005-1.025) Urine Protein 100 (2+) H (Neg-Trace) mg/dL Urine Glucose (UA) Negative (Negative) mg/dL Urine Ketones Negative (Negative) mg/dL Urine Blood Trace H (Negative) Urine Nitrite Negative (Negative) Ur Leukocyte Esterase Negative (Negative) Urine RBC 3-5 H (0-2) /HPF Urine WBC 0-5 (0-5) /HPF Ur Squamous Epith Cells 0-2 (0-2) /HPF Urine Bacteria None Seen (None Seen) Hyaline Casts 0-2 (0-2) /LPF Influenza Type A (PCR) NEGATIVE (Negative) Influenza Type B (PCR) NEGATIVE (Negative) RSV RNA Qual (PCR) NEGATIVE (Negative) SARS-CoV-2 RNA (RT-PCR) NEGATIVE (Negative) 05/21/22 Range/Units 15:45 WBC (4.8-10.8) X10*3/uL RBC (4.60-5.80) X10*6/uL Hgb (14.0-18.0) g/dl Hct (42.0-52.0) % MCV (80.0-98.0) fL MCH (27.0-33.0) pg MCHC (31.0-36.0) g/dl RDW (11.0-16.0) % Plt Count (160-400) X10*3/uL MPV (9.4-12.4) fL Immature Gran % (Auto) (0.0-0.4) % Neut % (Auto) (45-73) % Lymph % (Auto) (20-40) % [place] % (Auto) (2-11) % Eos % (Auto) (0-4) % Baso % (Auto) (0-2) % Lymph # (Auto) (1.2-4.9) X10*3/uL [place] # (Auto) (0.1-1.2) X10*3/uL Eos # (Auto) (0.0-0.4) X10*3/uL Baso # (Auto) (0.0-0.2) X10*3/uL Abs Immat Gran (auto) (0.00-0.03) X10*3/uL Absolute Neuts (auto) (2.0-8.3) x10*3/uL Absolute Nucleated RBC (0.0-0.012) X10*3/uL Nucleated RBC % (auto) (0.0-0.2) /100WBC PT (10.0-13.1) SEC INR (0.9-1.1) VBG pH 7.61 H* (7.32-7.43) VBG pCO2 43 mmHg VBG pO2 60 mmHg VBG HCO3 44 H (22-26) mmol/L VBG O2 Saturation 93.0 % VBG Base Excess 20.4 mmol/L Sodium (135-145) mmol/L Potassium (3.3-5.1) mmol/L Chloride (96-108) mmol/L Carbon Dioxide (22-29) mmol/L Anion Gap (12-20) BUN (9-16) mg/dL Creatinine (0.5-1.4) mg/dL Estim Creat Clear Calc Estimated GFR Random Glucose (60-115) mg/dL Lactic Acid (0.5-2.0) mmol/L Lactic Acid F/U @ 2Hr (0.5-2.0) mmol/L Calcium (8.4-10.2) mg/dL Magnesium (1.6-2.6) mg/dL Total Bilirubin (0.0-1.0) mg/dL Direct Bilirubin (0.0-0.5) mg/dL AST (5-37) U/L ALT (0-40) U/L Alkaline Phosphatase (39-117) U/L Troponin I High Sens (<3.5-35.0) ng/L B-Natriuretic Peptide (<100) pg/mL Total Protein (6.5-8.0) g/dL Albumin (3.5-5.0) g/dL Lipase (8-78) U/L Urine Color Urine Appearance Urine pH (5.0-9.0) Ur Specific [place] (1.005-1.025) Urine Protein (Neg-Trace) mg/dL Urine Glucose (UA) (Negative) mg/dL Urine Ketones (Negative) mg/dL Urine Blood (Negative) Urine Nitrite (Negative) Ur Leukocyte Esterase (Negative) Urine RBC (0-2) /HPF Urine WBC (0-5) /HPF Ur Squamous Epith Cells (0-2) /HPF Urine Bacteria (None Seen) Hyaline Casts (0-2) /LPF Influenza Type A (PCR) (Negative) Influenza Type B (PCR) (Negative) RSV RNA Qual (PCR) (Negative) SARS-CoV-2 RNA (RT-PCR) (Negative) Independent Interpretation I performed an independent interpretation of an: EKG Radiology Impression Discussion of test interpretation with radiology: I have reviewed the radio logist's reading. External Record Review External record reviewed: Inpatient record, Outpatient record, Prior outpatient labs, Prior outpatient radiology and Primary care record Critical Care Time Critical Care Time Critical Care Time: Yes Total Critical Care Time: 50 Attestation: I have personally provided critical care time exclusive of time spent on separately billable procedures. Time includes review of lab data, radiology results, discussion with consultants, and monitoring for potential decompensation. Intervention performed as documented. Discharge Plan Discharge Clinical Impression: Aspiration pneumonia, Hypoxia, JESSICA (acute kidney injury), Lactic acidosis Patient Disposition: Admitted As Inpatient Discharge Date/Time: 05/22/22 11:20
--- NOTE | 2022-05-21 12:49 | PC.NURSE ---
unable to get SaO2, attempted to warm hands, Jaydon RT at bedside to help, O2 found to be 71%. started on 6L NC and O2 iimproved to 97%. Valarie URIOSTEGUI at bedside
--- NOTE | 2022-05-21 12:51 | ECG_ITS ---
Test Reason : SOB Blood Pressure : / mmHG Vent. Rate : 069 BPM Atrial Rate : 000 BPM P-R Int : 000 ms QRS Dur : 076 ms QT Int : 454 ms P-R-T Axes : 000 012 -59 degrees QTc Int : 486 ms Atrial fibrillation with a competing junctional pacemaker with premature ventricular or aberrantly conducted complexes ST & T wave abnormality, consider inferior ischemia ST & T wave abnormality, consider anterior ischemia Prolonged QT Abnormal ECG When compared with ECG of 15-MAY-2022 13:37, Criteria for Septal infarct are no longer Present Referred By: Valarie Harris Electronically Signed By:VALENTINE REZA MD
[2022-05-21 13:24] LABS: MANUAL DIFF FLAG NO
[2022-05-21 13:31] LABS: Basophils Percent Auto 0.5 % (0-2); Eosinophils Absolute Auto 0.2 X10*3/uL (0.0-0.4); Eosinophils Percent Auto 2.9 % (0-4); Hematocrit 41.4 % (42.0-52.0); Hemoglobin 12.2 g/dl (14.0-18.0); Imm Gran Abs Auto 0.01 X10*3/uL (0.00-0.03); Imm Gran Pct Auto 0.2 % (0.0-0.4); Lymphocytes Absolute Auto 0.5 X10*3/uL (1.2-4.9); Lymphocytes Percent Auto 7.1 % (20-40); Mean Corpuscular HGB Conc 29.5 g/dl (31.0-36.0); Mean Corpuscular Hemoglobin 27.1 pg (27.0-33.0); Mean Platelet Volume 10.8 fL (9.4-12.4); Monocytes Absolute Auto 0.6 X10*3/uL (0.1-1.2); Monocytes Percent Auto 9.4 % (2-11); Neutrophils Absolute Auto 5.1 x10*3/uL (2.0-8.3); Neutrophils Percent Auto 79.9 % (45-73); Platelet Count 273 X10*3/uL (160-400); Red Cell Distribution Width 16.6 % (11.0-16.0); White Blood Count 6.3 X10*3/uL (4.8-10.8)
[2022-05-21 13:33] LABS: INTERNATIONAL NORM RATIO 1.6 (0.9-1.1); Prothrombin Time 18.1 SEC (10.0-13.1)
[2022-05-21 13:41] LABS: Lactic Acid 3.6 mmol/L (0.5-2.0)
[2022-05-21 13:45] LABS: B Type Natriuretic Peptide 556 pg/mL (<100)
[2022-05-21 13:47] LABS: Troponin-I High Sensitivity 40.6 ng/L (<3.5-35.0)
[2022-05-21 13:49] LABS: Alanine Aminotransferase 13 U/L (0-40); Albumin Level 3.1 g/dL (3.5-5.0); Alkaline Phosphatase 81 U/L (39-117); Anion Gap 14 (12-20); Aspartate Amino Transferase 22 U/L (5-37); Bilirubin Direct 0.5 mg/dL (0.0-0.5); Bilirubin Total 1.3 mg/dL (0.0-1.0); Blood Urea Nitrogen 61 mg/dL (9-16); Calcium 8.9 mg/dL (8.4-10.2); Carbon Dioxide 45 mmol/L (22-29); Chloride 88 mmol/L (96-108); Creatinine Clr Calc Pharmacy 35.8; Estimated Glomerular Filt Rate 43; Glucose Random 230 mg/dL (60-115); Lipase 62 U/L (8-78); Magnesium 1.7 mg/dL (1.6-2.6); Potassium 4.2 mmol/L (3.3-5.1); Sodium 143 mmol/L (135-145); Total Protein 6.5 g/dL (6.5-8.0)
--- NOTE | 2022-05-21 13:50 | PHA.MEDREC ---
Pharmacy Consult ? Medication Reconciliation Pharmacy has completed the medication reconciliation.
[2022-05-21 14:09] LABS: Influenza A PCR NEGATIVE (Negative); Influenza B PCR NEGATIVE (Negative); Resp Syncy Virus RNA Qual PCR NEGATIVE (Negative); SARS COV2 PCR INHOUSE NEGATIVE (Negative)
[2022-05-21 14:45] LABS: Appearance Urine Clear; Color Urine Yellow; Glucose Urine UA Negative (Negative); Leukocyte Esterase Urine Negative (Negative); Nitrite Urine Negative (Negative); PH 8.5 (5.0-9.0); Specific Gravity - Urine 1.015 (1.005-1.025); UMIC TRIGGER UACC YES; Urine Blood Trace (Negative); Urine Ketones Negative (Negative); Urine Protein 100 (2+) mg/dL (Neg-Trace)
[2022-05-21 14:50] LABS: Bacteria Urine None Seen (None Seen); Hyaline Casts Urine 0-2 /LPF (0-2); Squamous Epithelial Cell Urine 0-2 /HPF (0-2); WBC Urine 0-5 /HPF (0-5)
--- NOTE | 2022-05-21 14:50 | PC.NURSE ---
pt a difficult stick, ABX hung late due to this reason,
[2022-05-21 15:21] LABS: Reflex Lactate? Lactic Acid Added
--- NOTE | 2022-05-21 15:40 | PM.IMHP ---
History of Present Illness Date of Service: 05/21/22 Attending physician on admission: Barron Cunha Chief Complaint: sob 82 year old man presenting with sudden onset right upper quadrant/flank abdominal pain without fever, chills, nausea, vomiting, diarrhea. His reported that the last time this happened he had aspiration pneumonia. He does have a G-tube in place since November of 2021. Chest CT showing bilateral pleural effusions have decreased in size since last CT scan, persistent ground-glass opacities in lower lobes representing atelectasis versus pneumonia, abdominal CT negative for any acute abnormality. In the ER he was also noted to be hypoxic with oxygen saturation of 70%. He is now satting 100% on 4 L. He was started on Zosyn and IV fluids. Elevated lactic acid noted with no sepsis. Will be admitted for further management and treatment of possible aspiration pneumonia. Review of Systems Review of Systems: Denies any recent fever chills or decrease in appetite respiratory denies any shortness of breath coverage production cardiovascular denied chest pain gastrointestinal see HPI genitourinary denies any dysuria frequency or hematuria musculoskeletal denies any joint pain or swelling neuropsych denies any weakness or seizures all other systems reviewed are negative [facility] Medical History Atrial fibrillation Diabetes mellitus Hyperlipidemia Throat cancer Family History Mother Cancer Surgical History Gastrostomy in place Social History Household Members: Spouse Housing: House Do you presently have visiting nurse or other home services: No Unable to assess alcohol history related to: Unknown Alcohol intake: never Patient Tobacco Use Status: Former Tobacco user Smoked in Last 30 Days: No Second Hand Smoke Exposure: No Use of substances other than those prescribed or required for medical reasons: No Advance Directives: Yes Advance Directives on File: No Nutrition Risks: Difficulty swallowing and Receiving home tube feeding or CPN service: Yes Current occupational status: retired Meds Allergies Allergy/AdvReac Type Severity Reaction Status Date / Time fluconazole AdvReac Rash Verified 09/13/21 21:29 Active Medications: Current Medications Lactated Ringer's (Lr) 1,000 mls @ 75 mls/hr IVCONT .[id number] ACACIA Home Medications Medication Instructions Recorded Confirmed Last Taken Type apixaban 5 mg tablet (Eliquis) 1 tab PO BID 05/15/22 05/21/22 05/15/22 History furosemide 20 mg tablet 1 tab PO DAILY 05/15/22 05/21/22 Unknown History metformin 500 mg tablet 2 tab PO BID 05/15/22 05/21/22 05/15/22 History simvastatin 20 mg tablet 1 tab PO BEDTIME 05/15/22 05/21/22 05/14/22 History Physical Exam Vital Signs and Narrative: Vital Signs: Last Vital Signs Temp 97.6 F 05/21/22 13:18 Pulse 72 05/21/22 14:00 Resp 18 05/21/22 14:00 BP 105/61 05/21/22 14:00 Pulse Ox 100 05/21/22 14:00 O2 Del Method 05/21/22 14:00 O2 Flow Rate 4 05/21/22 14:00 BMI result Body Mass Index 22.1 Appearing in no acute distress head is normocephalic atraumatic eyes pupils are PERRLA sclera is anicteric mouth throat mucous membranes are intact and moist neck is supple no lymphadenopathy, no JVD noted lung sounds are clear to auscultation heart regular rate rhythm, clear S1, S2 positive bowel sounds, abdomen is soft, nontender neuro patient is alert x3, no focal deficits Results Labs 05/21/22 13:17 05/21/22 13:17 Labs: Laboratory Results - last 24 hr 05/21/22 05/21/22 05/21/22 13:17 13:17 13:17 MCV 92.0 MCH 27.1 MCHC 29.5 L RDW 16.6 H Plt Count 273 MPV 10.8 Immature Gran % (Auto) 0.2 Neut % (Auto) 79.9 H Lymph % (Auto) 7.1 L [place] % (Auto) 9.4 Eos % (Auto) 2.9 Baso % (Auto) 0.5 Lymph # (Auto) 0.5 L [place] # (Auto) 0.6 Eos # (Auto) 0.2 Baso # (Auto) 0.0 Abs Immat Gran (auto) 0.01 Absolute Neuts (auto) 5.1 Absolute Nucleated RBC 0.000 Nucleated RBC % (auto) 0.0 PT 18.1 H INR 1.6 H Anion Gap 14 Estim Creat Clear Calc 35.8 Estimated GFR 43 Random Glucose 230 H Lactic Acid Calcium 8.9 Magnesium 1.7 Total Bilirubin 1.3 H Direct Bilirubin 0.5 AST 22 ALT 13 Alkaline Phosphatase 81 Troponin I High Sens B-Natriuretic Peptide Total Protein 6.5 Albumin 3.1 L Lipase 62 Urine Color Urine Appearance Urine pH Ur Specific [place] Urine Protein Urine Glucose (UA) Urine Ketones Urine Blood Urine Nitrite Ur Leukocyte Esterase Urine RBC Urine WBC Ur Squamous Epith Cells Urine Bacteria Hyaline Casts Influenza Type A (PCR) Influenza Type B (PCR) RSV RNA Qual (PCR) SARS-CoV-2 RNA (RT-PCR) 05/21/22 05/21/22 05/21/22 13:17 13:17 13:17 MCV MCH MCHC RDW Plt Count MPV Immature Gran % (Auto) Neut % (Auto) Lymph % (Auto) [place] % (Auto) Eos % (Auto) Baso % (Auto) Lymph # (Auto) [place] # (Auto) Eos # (Auto) Baso # (Auto) Abs Immat Gran (auto) Absolute Neuts (auto) Absolute Nucleated RBC Nucleated RBC % (auto) PT INR Anion Gap Estim Creat Clear Calc Estimated GFR Random Glucose Lactic Acid 3.6 H* Calcium Magnesium Total Bilirubin Direct Bilirubin AST ALT Alkaline Phosphatase Troponin I High Sens 40.6 H B-Natriuretic Peptide 556 H Total Protein Albumin Lipase Urine Color Urine Appearance Urine pH Ur Specific [place] Urine Protein Urine Glucose (UA) Urine Ketones Urine Blood Urine Nitrite Ur Leukocyte Esterase Urine RBC Urine WBC Ur Squamous Epith Cells Urine Bacteria Hyaline Casts Influenza Type A (PCR) Influenza Type B (PCR) RSV RNA Qual (PCR) SARS-CoV-2 RNA (RT-PCR) 05/21/22 05/21/22 13:17 14:24 MCV MCH MCHC RDW Plt Count MPV Immature Gran % (Auto) Neut % (Auto) Lymph % (Auto) [place] % (Auto) Eos % (Auto) Baso % (Auto) Lymph # (Auto) [place] # (Auto) Eos # (Auto) Baso # (Auto) Abs Immat Gran (auto) Absolute Neuts (auto) Absolute Nucleated RBC Nucleated RBC % (auto) PT INR Anion Gap Estim Creat Clear Calc Estimated GFR Random Glucose Lactic Acid Calcium Magnesium Total Bilirubin Direct Bilirubin AST ALT Alkaline Phosphatase Troponin I High Sens B-Natriuretic Peptide Total Protein Albumin Lipase Urine Color Yellow Urine Appearance Clear Urine pH 8.5 Ur Specific [place] 1.015 Urine Protein 100 (2+) H Urine Glucose (UA) Negative Urine Ketones Negative Urine Blood Trace H Urine Nitrite Negative Ur Leukocyte Esterase Negative Urine RBC 3-5 H Urine WBC 0-5 Ur Squamous Epith Cells 0-2 Urine Bacteria None Seen Hyaline Casts 0-2 Influenza Type A (PCR) NEGATIVE Influenza Type B (PCR) NEGATIVE RSV RNA Qual (PCR) NEGATIVE SARS-CoV-2 RNA (RT-PCR) NEGATIVE Imaging Radiologist's Impressions: Impressions Abdomen/Pelvis CT 05/21/22 14:00 IMPRESSION: * Bilateral pleural effusions have decreased in size compared to 05/15/2022. * The persistent groundglass opacities in lower lobes are nonspecific and could represent atelectasis or pneumonia. * No acute imaging abnormalities in the abdomen or pelvis compared to 09/20/2021. * Bilateral renal stones are present. Interval migration of a stone from the lower pole into the right renal pelvis. However, no hydronephrosis. * Colonic diverticulosis without diverticulitis. 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 Chest CT 05/21/22 14:00 IMPRESSION: * Bilateral pleural effusions have decreased in size compared to 05/15/2022. * The persistent groundglass opacities in lower lobes are nonspecific and could represent atelectasis or pneumonia. * No acute imaging abnormalities in the abdomen or pelvis compared to 09/20/2021. * Bilateral renal stones are present. Interval migration of a stone from the lower pole into the right renal pelvis. However, no hydronephrosis. * Colonic diverticulosis without diverticulitis. 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 Assessment and Plan (1) Aspiration pneumonia: Status: Acute Plan 82 year old man admitted with hypoxia secondary to aspiration pna Acute hypoxic respiratory failure possibly secondary to aspiration pneumonia Chest CT showing bilateral pleural effusions with decrease since last CT scan, persistent ground-glass opacities in lower lobes Treated with Zosyn in the ER Continue supplemental oxygen Speech therapy for G-tube diet, last admission had nocturnal feedings for 11 hours, Glucerna at 200 mL an hour with 120 mL of water flush t.i.d. JESSICA on CKD, unknown baseline, unspecified Follow creatinine daily Lactic acidosis No sepsis, likely secondary to infection History of atrial fibrillation Continue Eliquis Diabetes mellitus Sliding scale, ADA diet Hyperlipidemia Statin DVT prophylaxis with Eliquis Full code Time Spent With Patient Time: Total time managing care of this patient today ____ minutes. Quality Stroke Does the patient have a stroke diagnosis?: No VTE Prior VTE?: No VTE Risk Level:: Medical - moderate - high VTE Device Contraindication: Treatment Not Indicated VTE Drug Contraindication: N/A - Med Ordered
--- NOTE | 2022-05-21 15:47 | MHC.EDTECH ---
this pct and another pct attempted to draw patients labs we both tried on both arms and was not successful, phlebotomy was called and the RN aware.
[2022-05-21 15:56] LABS: VBG Base Excess 20.4 mmol/L; VBG HCO3 44 mmol/L (22-26); VBG pCO2 43 mmHg; VBG pH 7.61 (7.32-7.43); VBG pO2 60 mmHg
[2022-05-21 15:58] LABS: Venous Blood Gas Refer to POC result
[2022-05-21 16:04] LABS: Glucose, Whole Blood 206 mg/dL (60-115)
[2022-05-21] MEDS: 0.9 % Sodium Chloride Flush 3 ML SYRINGE IVFLUSH (16:07)
[2022-05-21] MEDS: Piperacillin Sodium/Tazobactam 3.375 GM in 0.9 % Sodium Chloride 50 ML IV ×2 (16:08→22:00)
[2022-05-21] MEDS: Lactated Ringers 1,000 ML 75 ML IVCONT (16:09)
--- NOTE | 2022-05-21 17:43 | PC.NURSE ---
[place] cath placed on pt
[2022-05-21 17:44] LABS: Reflex Lactate? 2 Y
[2022-05-21 18:42] LABS: Glucose, Whole Blood 157 mg/dL (60-115)
[2022-05-21 18:46] LABS: ~Lactic Acid-LAB USE ONLY 3.2 mmol/L (0.5-2.0)
[2022-05-21 21:27] LABS: Glucose, Whole Blood 135 mg/dL (60-115)
[2022-05-21] MEDS: Apixaban 5 MG TABLET PO (21:38)
[2022-05-22 04:00] VITALS: BP 155/69; PULSE 77; RESP 16; O2SAT 100
[2022-05-22] MEDS: Piperacillin Sodium/Tazobactam 3.375 GM in 0.9 % Sodium Chloride 50 ML IV ×2 (04:10→09:18)
[2022-05-22] MEDS: Lactated Ringers 1,000 ML 75 ML IVCONT (04:11)
[2022-05-22 05:26] VITALS: BP 112/60; PULSE 73; RESP 15; TEMP 36.5; O2SAT 100
--- NOTE | 2022-05-22 06:19 | PC.NURSE ---
Pt DANIA x3.[facility]vin[facility] [employer] unable to draw labs he reports will send another [employer] to reattempt.
[2022-05-22 07:44] VITALS: BP 146/65; PULSE 75; RESP 15; TEMP 36.4; O2SAT 100
[2022-05-22 07:49] LABS: Glucose, Whole Blood 174 mg/dL (60-115)
[2022-05-22 08:15] LABS: MANUAL DIFF FLAG NO
[2022-05-22] MEDS: Insulin Lispro 100 UNIT/ML 3 ML VIAL SUBCUT (08:19)
[2022-05-22 08:28] LABS: Basophils Percent Auto 0.6 % (0-2); Eosinophils Absolute Auto 0.2 X10*3/uL (0.0-0.4); Eosinophils Percent Auto 3.2 % (0-4); Hematocrit 41.3 % (42.0-52.0); Hemoglobin 11.9 g/dl (14.0-18.0); Imm Gran Abs Auto 0.01 X10*3/uL (0.00-0.03); Imm Gran Pct Auto 0.2 % (0.0-0.4); Lymphocytes Absolute Auto 0.4 X10*3/uL (1.2-4.9); Mean Corpuscular HGB Conc 28.8 g/dl (31.0-36.0); Mean Corpuscular Hemoglobin 26.5 pg (27.0-33.0); Mean Platelet Volume 11.2 fL (9.4-12.4); Monocytes Absolute Auto 0.5 X10*3/uL (0.1-1.2); Monocytes Percent Auto 9.7 % (2-11); Neutrophils Absolute Auto 3.7 x10*3/uL (2.0-8.3); Neutrophils Percent Auto 78.3 % (45-73); Platelet Count 242 X10*3/uL (160-400); Red Blood Count 4.49 X10*6/uL (4.60-5.80); Red Cell Distribution Width 16.6 % (11.0-16.0); White Blood Count 4.7 X10*3/uL (4.8-10.8)
[2022-05-22 08:43] LABS: Anion Gap 19 (12-20); Blood Urea Nitrogen 50 mg/dL (9-16); Carbon Dioxide 40 mmol/L (22-29); Chloride 91 mmol/L (96-108); Creatinine Clr Calc Pharmacy 38.9; Estimated Glomerular Filt Rate 48; Glucose Random 175 mg/dL (60-115); Potassium 3.6 mmol/L (3.3-5.1); Sodium 146 mmol/L (135-145)
--- NOTE | 2022-05-22 09:21 | PC.NURSE ---
Tube feeding diet initiated, glucerna at 50mls
[2022-05-22 10:31] VITALS: BP 146/65; PULSE 75; O2SAT 100
--- NOTE | 2022-05-22 10:36 | PM.DS ---
DS: Providers Provider Date of Service: 05/22/22 Date of admission: 05/21/22 15:46 Primary care physician: MOODY Maki Attending physician on discharge: Shemar Tinsley Discharging clinician: Carmen Mchugh DS: Diagnosis Discharge Diagnosis (1) Aspiration pneumonia: Status: Acute DS: Summary Hospital Course Hospital Course: 82 year old man presenting with sudden onset right upper quadrant/flank abdominal pain without fever, chills, nausea, vomiting, diarrhea.? His reported that the last time this happened he had aspiration pneumonia.? He does have a G-tube in place since November of 2021.? Chest CT showing bilateral pleural effusions have decreased in size since last CT scan, persistent ground-glass opacities in lower lobes representing atelectasis versus pneumonia, abdominal CT negative for any acute abnormality.? In the ER he was also noted to be hypoxic with oxygen saturation of 70%.? He is now satting 100% on 4 L.? He was started on Zosyn and IV fluids.? Elevated lactic acid noted with no sepsis.? Will be admitted for further management and treatment of possible aspiration pneumonia. Acute hypoxic respiratory failure possibly secondary to aspiration pneumonia. Less likely aspiration as chest CT showed no new consolidations. had sudden MICHELLE pain but has resolved and no acute abnormalities noted on abd ct. Treated with IV zosyn. home with 3 more days of Augmentin. G-tube diet. last admission had nocturnal feedings for 11 hours, Glucerna at 200 mL an hour with 120 mL of water flush t.i.d. continue home orders for feeds JESSICA on CKD, unknown baseline, unspecified. check labs in 3 days Lactic acidosis. No sepsis, likely secondary to infection History of atrial fibrillation. Continue Eliquis Diabetes mellitus. continue home medications Hyperlipidemia. Statin Time Spent with Patient Time attestation: Total time managing care of this patient today ____ minutes. Discharge coordination time: Greater than 30 minutes Quality: Safe Use of Opioids Does Pt have an Active Cancer Diagnosis on the Problem List?: No Quality: Stroke Does the patient have a stroke diagnosis?: No Physical Exam Vital Signs: Vital Signs: Last Vital Signs Temp 97.5 F 05/22/22 07:44 Pulse 75 05/22/22 07:44 Resp 15 05/22/22 07:44 BP 146/65 H 05/22/22 07:44 Pulse Ox 100 05/22/22 07:44 O2 Del Method 05/22/22 07:44 O2 Flow Rate 2 05/22/22 07:44 BMI result Body Mass Index 22.1 Appearing in no acute distress head is normocephalic atraumatic eyes pupils are PERRLA sclera is anicteric mouth throat mucous membranes are intact and moist neck is supple no lymphadenopathy, no JVD noted lung sounds are clear to auscultation heart regular rate rhythm, clear S1, S2 positive bowel sounds, abdomen is soft, nontender neuro patient is alert x3, no focal deficits DS: Data Data Completed and Pending Completed studies during hospitalization [Text1]: Procedures Drainage of Right Pleural Cavity, Percutaneous Approach (05/15/22) Labs on day of discharge: Laboratory Results - last 24 hr 05/21/22 05/21/22 05/21/22 13:17 13:17 13:17 WBC 6.3 RBC 4.50 L Hgb 12.2 L Hct 41.4 L MCV 92.0 MCH 27.1 MCHC 29.5 L RDW 16.6 H Plt Count 273 MPV 10.8 Immature Gran % (Auto) 0.2 Neut % (Auto) 79.9 H Lymph % (Auto) 7.1 L [place] % (Auto) 9.4 Eos % (Auto) 2.9 Baso % (Auto) 0.5 Lymph # (Auto) 0.5 L [place] # (Auto) 0.6 Eos # (Auto) 0.2 Baso # (Auto) 0.0 Abs Immat Gran (auto) 0.01 Absolute Neuts (auto) 5.1 Absolute Nucleated RBC 0.000 Nucleated RBC % (auto) 0.0 PT 18.1 H INR 1.6 H VBG pH VBG pCO2 VBG pO2 VBG HCO3 VBG O2 Saturation VBG Base Excess Sodium 143 Potassium 4.2 Chloride 88 L Carbon Dioxide 45 H* Anion Gap 14 BUN 61 H Creatinine 1.54 H Estim Creat Clear Calc 35.8 Estimated GFR 43 POC Glucose Random Glucose 230 H Lactic Acid Lactic Acid F/U @ 2Hr Lactic Acid F/U @ 4Hr Calcium 8.9 Magnesium 1.7 Total Bilirubin 1.3 H Direct Bilirubin 0.5 AST 22 ALT 13 Alkaline Phosphatase 81 Troponin I High Sens B-Natriuretic Peptide Total Protein 6.5 Albumin 3.1 L Lipase 62 Urine Color Urine Appearance Urine pH Ur Specific [place] Urine Protein Urine Glucose (UA) Urine Ketones Urine Blood Urine Nitrite Ur Leukocyte Esterase Urine RBC Urine WBC Ur Squamous Epith Cells Urine Bacteria Hyaline Casts Influenza Type A (PCR) Influenza Type B (PCR) RSV RNA Qual (PCR) SARS-CoV-2 RNA (RT-PCR) 05/21/22 05/21/22 05/21/22 13:17 13:17 13:17 WBC RBC Hgb Hct MCV MCH MCHC RDW Plt Count MPV Immature Gran % (Auto) Neut % (Auto) Lymph % (Auto) [place] % (Auto) Eos % (Auto) Baso % (Auto) Lymph # (Auto) [place] # (Auto) Eos # (Auto) Baso # (Auto) Abs Immat Gran (auto) Absolute Neuts (auto) Absolute Nucleated RBC Nucleated RBC % (auto) PT INR VBG pH VBG pCO2 VBG pO2 VBG HCO3 VBG O2 Saturation VBG Base Excess Sodium Potassium Chloride Carbon Dioxide Anion Gap BUN Creatinine Estim Creat Clear Calc Estimated GFR POC Glucose Random Glucose Lactic Acid 3.6 H* Lactic Acid F/U @ 2Hr Lactic Acid F/U @ 4Hr Calcium Magnesium Total Bilirubin Direct Bilirubin AST ALT Alkaline Phosphatase Troponin I High Sens 40.6 H B-Natriuretic Peptide 556 H Total Protein Albumin Lipase Urine Color Urine Appearance Urine pH Ur Specific [place] Urine Protein Urine Glucose (UA) Urine Ketones Urine Blood Urine Nitrite Ur Leukocyte Esterase Urine RBC Urine WBC Ur Squamous Epith Cells Urine Bacteria Hyaline Casts Influenza Type A (PCR) Influenza Type B (PCR) RSV RNA Qual (PCR) SARS-CoV-2 RNA (RT-PCR) 05/21/22 05/21/22 05/21/22 13:17 14:24 15:41 WBC RBC Hgb Hct MCV MCH MCHC RDW Plt Count MPV Immature Gran % (Auto) Neut % (Auto) Lymph % (Auto) [place] % (Auto) Eos % (Auto) Baso % (Auto) Lymph # (Auto) [place] # (Auto) Eos # (Auto) Baso # (Auto) Abs Immat Gran (auto) Absolute Neuts (auto) Absolute Nucleated RBC Nucleated RBC % (auto) PT INR VBG pH VBG pCO2 VBG pO2 VBG HCO3 VBG O2 Saturation VBG Base Excess Sodium Potassium Chloride Carbon Dioxide Anion Gap BUN Creatinine Estim Creat Clear Calc Estimated GFR POC Glucose Random Glucose Lactic Acid Lactic Acid F/U @ 2Hr 4.0 H* Lactic Acid F/U @ 4Hr Calcium Magnesium Total Bilirubin Direct Bilirubin AST ALT Alkaline Phosphatase Troponin I High Sens B-Natriuretic Peptide Total Protein Albumin Lipase Urine Color Yellow Urine Appearance Clear Urine pH 8.5 Ur Specific [place] 1.015 Urine Protein 100 (2+) H Urine Glucose (UA) Negative Urine Ketones Negative Urine Blood Trace H Urine Nitrite Negative Ur Leukocyte Esterase Negative Urine RBC 3-5 H Urine WBC 0-5 Ur Squamous Epith Cells 0-2 Urine Bacteria None Seen Hyaline Casts 0-2 Influenza Type A (PCR) NEGATIVE Influenza Type B (PCR) NEGATIVE RSV RNA Qual (PCR) NEGATIVE SARS-CoV-2 RNA (RT-PCR) NEGATIVE 05/21/22 05/21/22 05/21/22 15:45 15:55 18:26 WBC RBC Hgb Hct MCV MCH MCHC RDW Plt Count MPV Immature Gran % (Auto) Neut % (Auto) Lymph % (Auto) [place] % (Auto) Eos % (Auto) Baso % (Auto) Lymph # (Auto) [place] # (Auto) Eos # (Auto) Baso # (Auto) Abs Immat Gran (auto) Absolute Neuts (auto) Absolute Nucleated RBC Nucleated RBC % (auto) PT INR VBG pH 7.61 H* VBG pCO2 43 VBG pO2 60 VBG HCO3 44 H VBG O2 Saturation 93.0 VBG Base Excess 20.4 Sodium Potassium Chloride Carbon Dioxide Anion Gap BUN Creatinine Estim Creat Clear Calc Estimated GFR POC Glucose 206 H Random Glucose Lactic Acid Lactic Acid F/U @ 2Hr Lactic Acid F/U @ 4Hr 3.2 H* Calcium Magnesium Total Bilirubin Direct Bilirubin AST ALT Alkaline Phosphatase Troponin I High Sens B-Natriuretic Peptide Total Protein Albumin Lipase Urine Color Urine Appearance Urine pH Ur Specific [place] Urine Protein Urine Glucose (UA) Urine Ketones Urine Blood Urine Nitrite Ur Leukocyte Esterase Urine RBC Urine WBC Ur Squamous Epith Cells Urine Bacteria Hyaline Casts Influenza Type A (PCR) Influenza Type B (PCR) RSV RNA Qual (PCR) SARS-CoV-2 RNA (RT-PCR) 05/21/22 05/21/22 05/22/22 18:39 21:22 07:34 WBC 4.7 L RBC 4.49 L Hgb 11.9 L Hct 41.3 L MCV 92.0 MCH 26.5 L MCHC 28.8 L RDW 16.6 H Plt Count 242 MPV 11.2 Immature Gran % (Auto) 0.2 Neut % (Auto) 78.3 H Lymph % (Auto) 8.0 L [place] % (Auto) 9.7 Eos % (Auto) 3.2 Baso % (Auto) 0.6 Lymph # (Auto) 0.4 L [place] # (Auto) 0.5 Eos # (Auto) 0.2 Baso # (Auto) 0.0 Abs Immat Gran (auto) 0.01 Absolute Neuts (auto) 3.7 Absolute Nucleated RBC 0.000 Nucleated RBC % (auto) 0.0 PT INR VBG pH VBG pCO2 VBG pO2 VBG HCO3 VBG O2 Saturation VBG Base Excess Sodium Potassium Chloride Carbon Dioxide Anion Gap BUN Creatinine Estim Creat Clear Calc Estimated GFR POC Glucose 157 H 135 H Random Glucose Lactic Acid Lactic Acid F/U @ 2Hr Lactic Acid F/U @ 4Hr Calcium Magnesium Total Bilirubin Direct Bilirubin AST ALT Alkaline Phosphatase Troponin I High Sens B-Natriuretic Peptide Total Protein Albumin Lipase Urine Color Urine Appearance Urine pH Ur Specific [place] Urine Protein Urine Glucose (UA) Urine Ketones Urine Blood Urine Nitrite Ur Leukocyte Esterase Urine RBC Urine WBC Ur Squamous Epith Cells Urine Bacteria Hyaline Casts Influenza Type A (PCR) Influenza Type B (PCR) RSV RNA Qual (PCR) SARS-CoV-2 RNA (RT-PCR) 05/22/22 05/22/22 07:34 07:41 WBC RBC Hgb Hct MCV MCH MCHC RDW Plt Count MPV Immature Gran % (Auto) Neut % (Auto) Lymph % (Auto) [place] % (Auto) Eos % (Auto) Baso % (Auto) Lymph # (Auto) [place] # (Auto) Eos # (Auto) Baso # (Auto) Abs Immat Gran (auto) Absolute Neuts (auto) Absolute Nucleated RBC Nucleated RBC % (auto) PT INR VBG pH VBG pCO2 VBG pO2 VBG HCO3 VBG O2 Saturation VBG Base Excess Sodium 146 H Potassium 3.6 Chloride 91 L Carbon Dioxide 40 H* Anion Gap 19 BUN 50 H Creatinine 1.42 H Estim Creat Clear Calc 38.9 Estimated GFR 48 POC Glucose 174 H Random Glucose 175 H Lactic Acid Lactic Acid F/U @ 2Hr Lactic Acid F/U @ 4Hr Calcium 9.0 Magnesium Total Bilirubin Direct Bilirubin AST ALT Alkaline Phosphatase Troponin I High Sens B-Natriuretic Peptide Total Protein Albumin Lipase Urine Color Urine Appearance Urine pH Ur Specific [place] Urine Protein Urine Glucose (UA) Urine Ketones Urine Blood Urine Nitrite Ur Leukocyte Esterase Urine RBC Urine WBC Ur Squamous Epith Cells Urine Bacteria Hyaline Casts Influenza Type A (PCR) Influenza Type B (PCR) RSV RNA Qual (PCR) SARS-CoV-2 RNA (RT-PCR) Discharge Plan Discharge Anticipated Discharge Date/Time: 05/22/22 10:30 Patient Disposition: Home Health Service Discharge Diagnosis: Possible aspiration pneumonia JESSICA on CKD Referrals: Jem Glynn PA [Primary Care Provider] - 1 Week Discharge Medications: New amoxicillin-pot clavulanate 875-125 mg tablet 1 tab PO BID Qty: 6 0RF Continued metformin 500 mg tablet 2 tab PO BID simvastatin 20 mg tablet 1 tab PO BEDTIME furosemide 20 mg tablet 1 tab PO DAILY Eliquis 5 mg tablet 1 tab PO BID Discharge Orders: Discharge Order (Routine); Ordered 05/22/22 Ordered By: Carmen Mchugh Diet: G-Tube feeds Activity on Discharge: As tolerated Stand Alone Forms: Patient Portal Discharge page Other Ambulatory Orders: Basic Metabolic Panel (Routine) Timeframe: 3 Days Facility: [facility] - Location: Laboratory Ordered By: Carmen Mchugh Care Plan Goals: Complete resolution of symptoms Health Concerns: Possible aspiration pneumonia JESSICA on CKD Plan of Treatment: Follow up with primary care provider as needed Take all medications as prescribed Assessment: See discharge summary
--- NOTE | 2022-05-22 10:47 | MHC.CM.PN ---
Addendum entered by America Martinez 05/27/22 07:43: [facility] accepted patient. Original Note: Received notification patient was going to be discharged. Physical therapy eval completed. Home therapy is recommended. Per Carmen DE LA TORRE, patient will also need nursing home and home lab draws. Met with patient and in regards to discharge planning. Patient is not active with any VNA services at this time. They have no preference for VNA agency. They agree to referral being broadcasted to see which agency can accept patient. Referral made via [employer]. Patient's pharmacy verified as [facility] [address] in [place] at Carmen DE LA TORRE's request. Patient's is requesting to speak with provider. Carmen DE LA TORRE made aware. Continue to monitor for d/c needs.
== END 2022-05-22 11:19 | disposition home health service (06) | DRG 177 ==
LOC: HO.ED 14:45 → HO.EDOVER 15:51
PROVIDERS: Physician Assistant; Admitting Provider Nurse Practitioner Acute Care; Emergency Provider Emergency Medicine Emergency Medical Services; PCP Physician Assistant Medical; Visit Provider Nurse Practitioner Acute Care
DX: J69.0 Pneumonitis due to inhalation of food and vomit (principal); J96.01 Acute respiratory failure with hypoxia; N17.9 Acute kidney failure, unspecified; E87.20 Acidosis, unspecified; E78.5 Hyperlipidemia, unspecified; E11.22 Type 2 diabetes mellitus with diabetic chronic kidney disease; N18.9 Chronic kidney disease, unspecified; I48.91 Unspecified atrial fibrillation; Z20.822 Contact with and (suspected) exposure to COVID-19; Z93.1 Gastrostomy status; Z85.21 Personal history of malignant neoplasm of larynx; Z87.891 Personal history of nicotine dependence; Z88.8 Allergy status to other drugs, medicaments and biological substances; Z79.01 Long term (current) use of anticoagulants; Z79.84 Long term (current) use of oral hypoglycemic drugs; Z79.899 Other long term (current) drug therapy
CPT/HCPCS: 0241U; 36415; 71250; 74176; 80048; 80076; 81001; 82803; 82947; 83605; 83690; 83735; 83880; 84484; 85025; 85610; 87040; 87147; 87205; 93005; 97162; 99285; J2543

== ENCOUNTER 2022-06-08 13:26 | Inpatient (IN) | payer MEDICARE, SELFPAY ==
--- NOTE | ~2022-06-08 | XR_ITS ---
EXAMINATION: XR CHEST CLINICAL INFORMATION: Short of breath. Increased oxygen requirement. COMPARISON: 06/08/2012 TECHNIQUE: Frontal view of the chest was obtained. FINDINGS: There is new fall opacification of the right hemithorax. Low volume of the left lung. Small left pleural effusion again noted. The cardiomediastinal silhouette is within normal limits. No acute osseous abnormality. XR/XR chest 1V IMPRESSION: New diffuse opacification of the right hemithorax. This could represent a combination of pleural effusion and airspace opacity. Mucous plugging also possible given the significant change from prior. Small left pleural effusion again noted.
--- NOTE | ~2022-06-08 | XR_ITS ---
EXAMINATION: XR CHEST CLINICAL INFORMATION: Status change. COMPARISON: 05/16/[address] scan dated 05/21/2022. TECHNIQUE: Frontal view of the chest was obtained. FINDINGS: Minimal desiccation is seen at the left lung base with blunting of the left costophrenic angle. The left upper lung field and right lung are clear. The heart and mediastinal structures are unremarkable. XR/XR chest 1V IMPRESSION: Minimal interval improvement in left pleural effusion. Persistent right pleural effusion cannot be excluded. A lateral view would be helpful in this patient.
--- NOTE | ~2022-06-08 | CT_ITS ---
EXAMINATION: CT HEAD WITHOUT CONTRAST CLINICAL INFORMATION: Mental status change. COMPARISON: None available. TECHNIQUE: Contiguous axial imaging was performed from the skull base to vertex without intravenous administration of contrast. Coronal and sagittal reformatted images were obtained. This CT examination was performed using dose optimization techniques as appropriate, variously including the following: *Automated exposure control *Adjustment of mA and/or kV according to patient size (this includes techniques or standardized protocols for targeted exams where dose is matched to indication/reason for exam; i.e. extremities or head) *Use of iterative reconstruction technique DLP: 684 mGy-cm FINDINGS: There is mild widening of the cortical sulci and associated ventriculomegaly. The lateral ventricles are symmetrical. The third and fourth ventricles are in their normal midline position. The basilar and prepontine cisterns are unremarkable. There is no acute intra or extracerebral abnormality. There is no mass effect or midline shift. No contrast enhancing abnormalities are identified. Sections through the bony calvarium are unremarkable. The orbits are intact. The paranasal sinuses are clear. The mastoid air cells are clear. A nodule with benign features is seen in the midline frontal parietal scalp without surrounding abnormality. CT/CT head/brain wo IV con IMPRESSION: No acute intracranial pathology.
[2022-06-08 13:33] VITALS: BP 138/50; PULSE 81; RESP 20; TEMP 36.6; O2SAT 100; BMI 22.1
--- NOTE | 2022-06-08 13:53 | ECG_ITS ---
Test Reason : ALTERED MENTAL STATUS Blood Pressure : / mmHG Vent. Rate : 083 BPM Atrial Rate : 068 BPM P-R Int : 000 ms QRS Dur : 086 ms QT Int : 430 ms P-R-T Axes : 000 039 219 degrees QTc Int : [address] & T wave abnormality, consider inferior ischemia ST & T wave abnormality, consider anterolateral ischemia Prolonged QT Abnormal ECG When compared with ECG of 21-MAY-2022 13:28, Current undetermined rhythm precludes rhythm comparison, needs review Non-specific change in ST segment in Lateral leads T wave inversion less evident in Inferior leads T wave inversion now evident in Lateral leads Referred By: Freeman Esparza Electronically Signed By:Deven Wheeler
--- NOTE | 2022-06-08 13:56 | ED.GENADULT ---
HPI - General Adult General Chief complaint: General Medical Stated complaint: lethergy/sob Time Seen by Provider: 06/08/22 13:44 Source: patient, family and EMS Mode of arrival: EMS Limitations: no limitations and altered mental status History of Present Illness HPI narrative: 82-year-old male came in for evaluation of a change mental status and becoming lethargic, patient with history of ENT cancer status post G-tube, patient had similar symptoms in the past when he had aspiration pneumonia, patient found to be satting 80% on room air. No abdominal pain, no fever, no chills, no nausea, no vomiting. As per patient been having diarrhea for the last 3 days, described as nonbloody watery diarrhea. Related Data Home Medications Medication Instructions Recorded Confirmed furosemide 20 mg tablet 1 tab feeding tube DAILY 05/15/22 06/08/22 metformin 500 mg tablet 2 tab feeding tube BID 05/15/22 06/08/22 apixaban 2.5 mg tablet (Eliquis) 2.5 mg feeding tube BID 06/08/22 06/08/22 Allergies Allergy/AdvReac Type Severity Reaction Status Date / Time fluconazole AdvReac Rash Verified 09/13/21 21:29 Review of Systems Review of Systems: Yes Unobtainable due to mental status PMFSH Past Medical History Medical History Atrial fibrillation CHF (congestive heart failure) Diabetes mellitus Hyperlipidemia Throat cancer Surgical History Gastrostomy in place Family History Family History Mother Cancer Social History Social History Household Members: Spouse Housing: House Do you presently have visiting nurse or other home services: No Unable to assess alcohol history related to: Unknown Alcohol intake: never Patient Tobacco Use Status: Former Tobacco user Second Hand Smoke Exposure: No Advance Directives: Yes Advance Directives on File: No service: Yes Current occupational status: retired Physical Exam ED Vital Signs: Vital Signs - 24 hr 06/08/22 13:33 06/08/22 15:43 Temperature 97.9 F Pulse Rate 81 79 Respiratory Rate 20 25 H Blood Pressure 138/50 L 141/67 H Pulse Oximetry 100 96 Oxygen Delivery Method Non-Rebreather Mask Room Air BMI result Body Mass Index 22.1 Vital signs have been reviewed as appeared to be correct. Blood pressure normal. Heart rate normal. Respiration rate normal. Temperature normal. Oxygen saturation normal. Appearance: Alert. Awake, disoriented to place and time and event.. No acute distress. Head: Normal external exam. Normocephalic. Atraumatic. No Valdes signs noted. No raccoon eyes noted Eyes: PERRLA. EOMI. Conjunctiva and sclera normal. Eyelids normal. ENT: TM's Normal. Pharynx normal. Uvula midline. Moist mucous membranes. No trismus noted. No drooling noted. No muffled voice noted. Neck: Normal inspection. Neck supple. FROM. No adenopathy. Thyroid Normal. No meningeal signs. No neck mass noted. CVS: Normal heart rate and rhythm. Heart sound normal. No murmurs noted. Pulses normal throughout. Respiratory: No respiratory distress. Painless inspiration. Breath sounds normal. No wheezes/rales/rhonchi noted. Chest nontender. No accessory muscle usage noted or decreased air movement noted. Abdomen: Soft and nontender. Bowel sounds normal in all 4 quadrants. No distention noted. No organomegaly noted. No visible injury noted. Back: No CVA tenderness. Full range of motion noted. Skin: Skin warm and dry. Normal skin color. Normal skin turgor. No rashes/lesions/lacerations noted. Extremities: No lower extremity edema. Extremities exhibit normal range of motion. Extremities nontender. Neuro: Cranial nerve exam: II-XII are grossly intact No motor deficit. No sensory deficit. Reflexes normal. Course Course Course Narrative: 82-year-old male with history of ENT cancer and G-tube, as I discussed with the ( HCP) and daughter who stated that the patient is a DNR/DNI. With the elevated troponin and chance of having non ST elevation [place] family do not want the patient to be transferred to [facility] or having any aggressive invasive procedure. Diarrhea for the last couple days and likely patient is not getting free water via his G-tube with hypernatremia and DKA with lactic acidosis. Will start hydrating the patient with D5W. 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 Medications Administered Discontinued Medications Generic Name Dose Route Start Last Admin Trade Name Edinq PRN Reason Stop Dose Admin Sodium Chloride 1,000 mls @ 999 mls/hr 06/08/22 13:53 06/08/22 14:37 Ns IV 06/08/22 14:53 999 mls/hr .Q1H1M ONE Administration Medical Decision Making Differential Diagnosis Differential Diagnoses: The differential diagnosis associated with the presentation includes (Renal failure, electrolyte disturbance, dehydration, lactic acidosis, cardiac event, ACS.) Admission/Observation Consideration of admission/observation: Escalation of care including admission/observation considered Consult Healthcare Provider Management of the patient was discussed with: Hospitalist and Stage Rigger ( and dr. Millan.) Lab Data MDM Lab Attestation statement: I reviewed the patient's lab results. 06/08/22 14:16 06/08/22 14:16 Labs: Lab Results 06/08/22 06/08/22 06/08/22 Range/Units 14:15 14:15 14:15 WBC (4.8-10.8) X10*3/uL RBC (4.60-5.80) X10*6/uL Hgb (14.0-18.0) g/dl Hct (42.0-52.0) % MCV (80.0-98.0) fL MCH (27.0-33.0) pg MCHC (31.0-36.0) g/dl RDW (11.0-16.0) % Plt Count (160-400) X10*3/uL MPV (9.4-12.4) fL Immature Gran % (Auto) (0.0-0.4) % Neut % (Auto) (45-73) % Lymph % (Auto) (20-40) % [place] % (Auto) (2-11) % Eos % (Auto) (0-4) % Baso % (Auto) (0-2) % Lymph # (Auto) (1.2-4.9) X10*3/uL [place] # (Auto) (0.1-1.2) X10*3/uL Eos # (Auto) (0.0-0.4) X10*3/uL Baso # (Auto) (0.0-0.2) X10*3/uL Abs Immat Gran (auto) (0.00-0.03) X10*3/uL Absolute Neuts (auto) (2.0-8.3) x10*3/uL Absolute Nucleated RBC (0.0-0.012) X10*3/uL Nucleated RBC % (auto) (0.0-0.2) /100WBC PT (10.0-13.1) SEC INR (0.9-1.1) APTT (26.0-36.4) SEC Sodium (135-145) mmol/L Potassium (3.3-5.1) mmol/L Chloride (96-108) mmol/L Carbon Dioxide (22-29) mmol/L Anion Gap (12-20) BUN (9-16) mg/dL Creatinine (0.5-1.4) mg/dL Estim Creat Clear Calc Estimated GFR Random Glucose (60-115) mg/dL Lactic Acid 8.3 H* (0.5-2.0) mmol/L Calcium (8.4-10.2) mg/dL Total Bilirubin (0.0-1.0) mg/dL Direct Bilirubin (0.0-0.5) mg/dL AST (5-37) U/L ALT (0-40) U/L Alkaline Phosphatase (39-117) U/L Ammonia 25 (13-55) umol/L Troponin I High Sens (<3.5-35.0) ng/L B-Natriuretic Peptide (<100) pg/mL Total Protein (6.5-8.0) g/dL Albumin (3.5-5.0) g/dL Lipase (8-78) U/L Urine Color Urine Appearance Urine pH (5.0-9.0) Ur Specific [place] (1.005-1.025) Urine Protein (Neg-Trace) mg/dL Urine Glucose (UA) (Negative) mg/dL Urine Ketones (Negative) mg/dL Urine Blood (Negative) Urine Nitrite (Negative) Ur Leukocyte Esterase (Negative) Urine RBC (0-2) /HPF Urine WBC (0-5) /HPF Ur Squamous Epith Cells (0-2) /HPF Urine Bacteria (None Seen) Hyaline Casts (0-2) /LPF Influenza Type A (PCR) NEGATIVE (Negative) Influenza Type B (PCR) NEGATIVE (Negative) RSV RNA Qual (PCR) NEGATIVE (Negative) SARS-CoV-2 RNA (RT-PCR) NEGATIVE (Negative) 06/08/22 06/08/22 06/08/22 Range/Units 14:16 14:16 14:16 WBC 7.4 (4.8-10.8) X10*3/uL RBC 4.49 L (4.60-5.80) X10*6/uL Hgb 12.1 L (14.0-18.0) g/dl Hct 43.4 (42.0-52.0) % MCV 96.7 (80.0-98.0) fL MCH 26.9 L (27.0-33.0) pg MCHC 27.9 L (31.0-36.0) g/dl RDW 18.6 H (11.0-16.0) % Plt Count 307 D (160-400) X10*3/uL MPV 12.1 (9.4-12.4) fL Immature Gran % (Auto) 0.4 (0.0-0.4) % Neut % (Auto) 81.3 H (45-73) % Lymph % (Auto) 6.2 L (20-40) % [place] % (Auto) 11.2 H (2-11) % Eos % (Auto) 0.4 (0-4) % Baso % (Auto) 0.5 (0-2) % Lymph # (Auto) 0.5 L (1.2-4.9) X10*3/uL [place] # (Auto) 0.8 (0.1-1.2) X10*3/uL Eos # (Auto) 0.0 (0.0-0.4) X10*3/uL Baso # (Auto) 0.0 (0.0-0.2) X10*3/uL Abs Immat Gran (auto) 0.03 (0.00-0.03) X10*3/uL Absolute Neuts (auto) 6.1 (2.0-8.3) x10*3/uL Absolute Nucleated RBC 0.030 H (0.0-0.012) X10*3/uL Nucleated RBC % (auto) 0.4 H (0.0-0.2) /100WBC PT (10.0-13.1) SEC INR (0.9-1.1) APTT (26.0-36.4) SEC Sodium 159 H (135-145) mmol/L Potassium 5.2 H D (3.3-5.1) mmol/L Chloride 106 (96-108) mmol/L Carbon Dioxide 28 (22-29) mmol/L Anion Gap 30 H (12-20) BUN 137 H (9-16) mg/dL Creatinine 3.05 H (0.5-1.4) mg/dL Estim Creat Clear Calc 17.6 Estimated GFR 20 Random Glucose 446 H* (60-115) mg/dL Lactic Acid (0.5-2.0) mmol/L Calcium 9.6 D (8.4-10.2) mg/dL Total Bilirubin 0.8 (0.0-1.0) mg/dL Direct Bilirubin 0.3 (0.0-0.5) mg/dL AST 93 H (5-37) U/L ALT 61 H (0-40) U/L Alkaline Phosphatase 83 (39-117) U/L Ammonia (13-55) umol/L Troponin I High Sens 600.4 H* D (<3.5-35.0) ng/L B-Natriuretic Peptide (<100) pg/mL Total Protein 6.7 (6.5-8.0) g/dL Albumin 3.3 L (3.5-5.0) g/dL Lipase 33 (8-78) U/L Urine Color Urine Appearance Urine pH (5.0-9.0) Ur Specific [place] (1.005-1.025) Urine Protein (Neg-Trace) mg/dL Urine Glucose (UA) (Negative) mg/dL Urine Ketones (Negative) mg/dL Urine Blood (Negative) Urine Nitrite (Negative) Ur Leukocyte Esterase (Negative) Urine RBC (0-2) /HPF Urine WBC (0-5) /HPF Ur Squamous Epith Cells (0-2) /HPF Urine Bacteria (None Seen) Hyaline Casts (0-2) /LPF Influenza Type A (PCR) (Negative) Influenza Type B (PCR) (Negative) RSV RNA Qual (PCR) (Negative) SARS-CoV-2 RNA (RT-PCR) (Negative) 06/08/22 06/08/22 06/08/22 Range/Units 14:16 14:16 14:22 WBC (4.8-10.8) X10*3/uL RBC (4.60-5.80) X10*6/uL Hgb (14.0-18.0) g/dl Hct (42.0-52.0) % MCV (80.0-98.0) fL MCH (27.0-33.0) pg MCHC (31.0-36.0) g/dl RDW (11.0-16.0) % Plt Count (160-400) X10*3/uL MPV (9.4-12.4) fL Immature Gran % (Auto) (0.0-0.4) % Neut % (Auto) (45-73) % Lymph % (Auto) (20-40) % [place] % (Auto) (2-11) % Eos % (Auto) (0-4) % Baso % (Auto) (0-2) % Lymph # (Auto) (1.2-4.9) X10*3/uL [place] # (Auto) (0.1-1.2) X10*3/uL Eos # (Auto) (0.0-0.4) X10*3/uL Baso # (Auto) (0.0-0.2) X10*3/uL Abs Immat Gran (auto) (0.00-0.03) X10*3/uL Absolute Neuts (auto) (2.0-8.3) x10*3/uL Absolute Nucleated RBC (0.0-0.012) X10*3/uL Nucleated RBC % (auto) (0.0-0.2) /100WBC PT 20.3 H (10.0-13.1) SEC INR 1.7 H (0.9-1.1) APTT 30.7 (26.0-36.4) SEC Sodium (135-145) mmol/L Potassium (3.3-5.1) mmol/L Chloride (96-108) mmol/L Carbon Dioxide (22-29) mmol/L Anion Gap (12-20) BUN (9-16) mg/dL Creatinine (0.5-1.4) mg/dL Estim Creat Clear Calc Estimated GFR Random Glucose (60-115) mg/dL Lactic Acid (0.5-2.0) mmol/L Calcium (8.4-10.2) mg/dL Total Bilirubin (0.0-1.0) mg/dL Direct Bilirubin (0.0-0.5) mg/dL AST (5-37) U/L ALT (0-40) U/L Alkaline Phosphatase (39-117) U/L Ammonia (13-55) umol/L Troponin I High Sens (<3.5-35.0) ng/L B-Natriuretic Peptide 1945 H (<100) pg/mL Total Protein (6.5-8.0) g/dL Albumin (3.5-5.0) g/dL Lipase (8-78) U/L Urine Color Yellow Urine Appearance Cloudy Urine pH 5.5 (5.0-9.0) Ur Specific [place] 1.015 (1.005-1.025) Urine Protein 30 (1+) H (Neg-Trace) mg/dL Urine Glucose (UA) 100 H (Negative) mg/dL Urine Ketones 15 (Negative) mg/dL Urine Blood Large (3+) H (Negative) Urine Nitrite Negative (Negative) Ur Leukocyte Esterase Negative (Negative) Urine RBC >20 H (0-2) /HPF Urine WBC 0-5 (0-5) /HPF Ur Squamous Epith Cells 6-10 (0-2) /HPF Urine Bacteria None Seen (None Seen) Hyaline Casts 11-20 (0-2) /LPF Influenza Type A (PCR) (Negative) Influenza Type B (PCR) (Negative) RSV RNA Qual (PCR) (Negative) SARS-CoV-2 RNA (RT-PCR) (Negative) Independent Interpretation I performed an independent interpretation of an: EKG (Normal sinus rhythm at 83 beats per minutes, prolonged QTC, nonspecific ST-T change.), Plain X-Ray (Chest: No acute pathology.) and CT Scan (Head: No acute intracranial pathology.) Radiology Impression Discussion of test interpretation with radiology: I have reviewed the radiologist's reading. Discharge Plan Discharge Clinical Impression: Acute on chronic renal insufficiency, Hypernatremia, Dehydration, Non-ST elevation IL (NSTEMI) Patient Disposition: Admitted As Inpatient Prescriptions: No Action metformin 500 mg tablet 2 tab feeding tube BID furosemide 20 mg tablet 1 tab feeding tube DAILY Eliquis 2.5 mg tablet 2.5 mg feeding tube BID Referrals: Jem Glynn PA [Primary Care Provider] - 1 Week
--- NOTE | 2022-06-08 14:18 | PHA.MEDREC ---
Pharmacy Consult ? Medication Reconciliation Pharmacy has completed the medication reconciliation. spoke with patients who had a list of his medications. She states that he is NPO and uses a G-tube.
[2022-06-08 14:21] LABS: MANUAL DIFF FLAG NO
[2022-06-08 14:22] LABS: Basophils Percent Auto 0.5 % (0-2); Eosinophils Percent Auto 0.4 % (0-4); Hematocrit 43.4 % (42.0-52.0); Hemoglobin 12.1 g/dl (14.0-18.0); Imm Gran Abs Auto 0.03 X10*3/uL (0.00-0.03); Imm Gran Pct Auto 0.4 % (0.0-0.4); Lymphocytes Absolute Auto 0.5 X10*3/uL (1.2-4.9); Lymphocytes Percent Auto 6.2 % (20-40); Mean Corpuscular HGB Conc 27.9 g/dl (31.0-36.0); Mean Corpuscular Hemoglobin 26.9 pg (27.0-33.0); Mean Corpuscular Volume 96.7 fL (80.0-98.0); Mean Platelet Volume 12.1 fL (9.4-12.4); Monocytes Absolute Auto 0.8 X10*3/uL (0.1-1.2); Monocytes Percent Auto 11.2 % (2-11); NRBC Pct Auto 0.4 /100WBC (0.0-0.2); Neutrophils Absolute Auto 6.1 x10*3/uL (2.0-8.3); Neutrophils Percent Auto 81.3 % (45-73); Platelet Count 307 X10*3/uL (160-400); Red Blood Count 4.49 X10*6/uL (4.60-5.80); Red Cell Distribution Width 18.6 % (11.0-16.0); White Blood Count 7.4 X10*3/uL (4.8-10.8)
[2022-06-08 14:30] LABS: INTERNATIONAL NORM RATIO 1.7 (0.9-1.1); Prothrombin Time 20.3 SEC (10.0-13.1)
[2022-06-08 14:31] LABS: Appearance Urine Cloudy; Color Urine Yellow; Glucose Urine UA 100 mg/dL (Negative); Leukocyte Esterase Urine Negative (Negative); Nitrite Urine Negative (Negative); PH 5.5 (5.0-9.0); Specific Gravity - Urine 1.015 (1.005-1.025); UMIC TRIGGER UACC YES; Urine Blood Large (3+) (Negative); Urine Ketones 15 mg/dL (Negative); Urine Protein 30 (1+) mg/dL (Neg-Trace)
[2022-06-08 14:32] LABS: Partial Thromboplastin Time 30.7 SEC (26.0-36.4)
[2022-06-08 14:36] LABS: Ammonia 25 umol/L (13-55)
[2022-06-08] MEDS: 0.9 % Sodium Chloride 1,000 ML 999 ML IV (14:37)
[2022-06-08 14:41] LABS: Lactic Acid 8.3 mmol/L (0.5-2.0)
[2022-06-08 14:42] LABS: Bacteria Urine None Seen (None Seen); RBC Urine >20 /HPF (0-2); WBC Urine 0-5 /HPF (0-5)
[2022-06-08 14:48] LABS: B Type Natriuretic Peptide 1945 pg/mL (<100)
[2022-06-08 15:00] LABS: Influenza A PCR NEGATIVE (Negative); Influenza B PCR NEGATIVE (Negative); Resp Syncy Virus RNA Qual PCR NEGATIVE (Negative); SARS COV2 PCR INHOUSE NEGATIVE (Negative)
[2022-06-08 15:00] LABS: Troponin-I High Sensitivity 600.4 ng/L (<3.5-35.0)
[2022-06-08 15:01] LABS: Alanine Aminotransferase 61 U/L (0-40); Albumin Level 3.3 g/dL (3.5-5.0); Alkaline Phosphatase 83 U/L (39-117); Anion Gap 30 (12-20); Aspartate Amino Transferase 93 U/L (5-37); Bilirubin Direct 0.3 mg/dL (0.0-0.5); Bilirubin Total 0.8 mg/dL (0.0-1.0); Blood Urea Nitrogen 137 mg/dL (9-16); Calcium 9.6 mg/dL (8.4-10.2); Carbon Dioxide 28 mmol/L (22-29); Chloride 106 mmol/L (96-108); Creatinine Clr Calc Pharmacy 17.6; Estimated Glomerular Filt Rate 20; Glucose Random 446 mg/dL (60-115); Lipase 33 U/L (8-78); Potassium 5.2 mmol/L (3.3-5.1); Sodium 159 mmol/L (135-145); Total Protein 6.7 g/dL (6.5-8.0)
[2022-06-08 15:43] VITALS: BP 141/67; PULSE 79; RESP 25; O2SAT 96
[2022-06-08 16:19] LABS: Reflex Lactate? Lactic Acid Added
--- NOTE | 2022-06-08 16:48 | P.HPHOSP_ITS ---
History of Present Illness Date of Service: 06/08/22 Chief Complaint: ams 82M PMH CKD III, DM, HLD, throat cancer in remission, radiation esophogitis s/p Gtube, permanent afib, right sided chf, presented with AMS. at baseline, patient is alert and oriented times 3, ambulates, though recently requiring walker. over all declining over past few weeks. on day of presentation became very lethargic, confused, 1 episode of diarrhea, brought to ED. in ED noted to be in DKA, hypernatremia, JESSICA, lactic acidosis. Review of Systems Review of Systems: Yes Unobtainable due to mental status [facility] Medical History Atrial fibrillation CHF (congestive heart failure) Diabetes mellitus Hyperlipidemia Throat cancer Family History Mother Cancer Surgical History Gastrostomy in place Social History Household Members: Spouse Housing: House Do you presently have visiting nurse or other home services: No Unable to assess alcohol history related to: Unknown Alcohol intake: never Patient Tobacco Use Status: Former Tobacco user Second Hand Smoke Exposure: No Advance Directives: Yes Advance Directives on File: No service: Yes Current occupational status: retired Meds Allergies Allergy/AdvReac Type Severity Reaction Status Date / Time fluconazole AdvReac Rash Verified 09/13/21 21:29 Active Medications: Current Medications Apixaban (Apixaban 2.5 Mg Tablet) 2.5 mg G-TUBE BID [facility] Dextrose (D5w) 1,000 mls @ 125 mls/hr IVCONT .Q8H ONE Stop: 06/09/22 00:05 Insulin Human Regular (Insulin Regular, Human 100 Unit/Ml 3 Ml Vial) 7 unit 0.1 unit/kg (7 unit) IVPUSH CONT. PER PROTOCOL [facility] Pharmacy Consult (Consult Rx Perform Med Rec) 1 each MISCELLANE ONCE PRN PRN Reason: Consult order Sodium Chloride (0.9 % Sodium Chloride Flush 3 Ml Syringe) 3 ml IVFLUSH QSHIFT [facility] Home Medications Medication Instructions Recorded Confirmed Last Taken Type furosemide 20 mg tablet 1 tab feeding tube DAILY 05/15/22 06/08/22 06/08/22 09:00 History metformin 500 mg tablet 2 tab feeding tube BID 05/15/22 06/08/22 06/08/22 09:00 History apixaban 2.5 mg tablet (Eliquis) 2.5 mg feeding tube BID 06/08/22 06/08/22 06/08/22 09:00 History Physical Exam Vital Signs and Narrative: Vital Signs: Last Vital Signs Temp 97.9 F 06/08/22 13:33 Pulse 79 06/08/22 15:43 Resp 25 H 06/08/22 15:43 BP 141/67 H 06/08/22 15:43 Pulse Ox 96 06/08/22 15:43 O2 Del Method 06/08/22 15:43 BMI result Body Mass Index 22.1 lethargic, not talking, ill appearing, frail decreased air entry bilateral lungs abd - gtube, soft, non tender, non distended Results Labs 06/08/22 14:16 06/08/22 14:16 Labs: Laboratory Results - last 24 hr 06/08/22 06/08/22 06/08/22 14:15 14:15 14:15 MCV MCH MCHC RDW Plt Count MPV Immature Gran % (Auto) Neut % (Auto) Lymph % (Auto) [place] % (Auto) Eos % (Auto) Baso % (Auto) Lymph # (Auto) [place] # (Auto) Eos # (Auto) Baso # (Auto) Abs Immat Gran (auto) Absolute Neuts (auto) Absolute Nucleated RBC Nucleated RBC % (auto) PT INR APTT Anion Gap Estim Creat Clear Calc Estimated GFR Random Glucose Lactic Acid 8.3 H* Calcium Total Bilirubin Direct Bilirubin AST ALT Alkaline Phosphatase Ammonia 25 Troponin I High Sens B-Natriuretic Peptide Total Protein Albumin Lipase Urine Color Urine Appearance Urine pH Ur Specific [place] Urine Protein Urine Glucose (UA) Urine Ketones Urine Blood Urine Nitrite Ur Leukocyte Esterase Urine RBC Urine WBC Ur Squamous Epith Cells Urine Bacteria Hyaline Casts Influenza Type A (PCR) NEGATIVE Influenza Type B (PCR) NEGATIVE RSV RNA Qual (PCR) NEGATIVE SARS-CoV-2 RNA (RT-PCR) NEGATIVE 06/08/22 06/08/22 06/08/22 14:16 14:16 14:16 MCV 96.7 MCH 26.9 L MCHC 27.9 L RDW 18.6 H Plt Count 307 D MPV 12.1 Immature Gran % (Auto) 0.4 Neut % (Auto) 81.3 H Lymph % (Auto) 6.2 L [place] % (Auto) 11.2 H Eos % (Auto) 0.4 Baso % (Auto) 0.5 Lymph # (Auto) 0.5 L [place] # (Auto) 0.8 Eos # (Auto) 0.0 Baso # (Auto) 0.0 Abs Immat Gran (auto) 0.03 Absolute Neuts (auto) 6.1 Absolute Nucleated RBC 0.030 H Nucleated RBC % (auto) 0.4 H PT INR APTT Anion Gap 30 H Estim Creat Clear Calc 17.6 Estimated GFR 20 Random Glucose 446 H* Lactic Acid Calcium 9.6 D Total Bilirubin 0.8 Direct Bilirubin 0.3 AST 93 H ALT 61 H Alkaline Phosphatase 83 Ammonia Troponin I High Sens 600.4 H* D B-Natriuretic Peptide Total Protein 6.7 Albumin 3.3 L Lipase 33 Urine Color Urine Appearance Urine pH Ur Specific [place] Urine Protein Urine Glucose (UA) Urine Ketones Urine Blood Urine Nitrite Ur Leukocyte Esterase Urine RBC Urine WBC Ur Squamous Epith Cells Urine Bacteria Hyaline Casts Influenza Type A (PCR) Influenza Type B (PCR) RSV RNA Qual (PCR) SARS-CoV-2 RNA (RT-PCR) 06/08/22 06/08/22 06/08/22 14:16 14:16 14:22 MCV MCH MCHC RDW Plt Count MPV Immature Gran % (Auto) Neut % (Auto) Lymph % (Auto) [place] % (Auto) Eos % (Auto) Baso % (Auto) Lymph # (Auto) [place] # (Auto) Eos # (Auto) Baso # (Auto) Abs Immat Gran (auto) Absolute Neuts (auto) Absolute Nucleated RBC Nucleated RBC % (auto) PT 20.3 H INR 1.7 H APTT 30.7 Anion Gap Estim Creat Clear Calc Estimated GFR Random Glucose Lactic Acid Calcium Total Bilirubin Direct Bilirubin AST ALT Alkaline Phosphatase Ammonia Troponin I High Sens B-Natriuretic Peptide 1945 H Total Protein Albumin Lipase Urine Color Yellow Urine Appearance Cloudy Urine pH 5.5 Ur Specific [place] 1.015 Urine Protein 30 (1+) H Urine Glucose (UA) 100 H Urine Ketones 15 Urine Blood Large (3+) H Urine Nitrite Negative Ur Leukocyte Esterase Negative Urine RBC >20 H Urine WBC 0-5 Ur Squamous Epith Cells 6-10 Urine Bacteria None Seen Hyaline Casts 11-20 Influenza Type A (PCR) Influenza Type B (PCR) RSV RNA Qual (PCR) SARS-CoV-2 RNA (RT-PCR) Imaging Radiologist's Impressions: Impressions Chest X-Ray 06/08/22 14:54 IMPRESSION: Minimal interval improvement in left pleural effusion. Persistent right pleural effusion cannot be excluded. A lateral view would be helpful in this patient. Head CT 06/08/22 15:59 IMPRESSION: No acute intracranial pathology. 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 Quality Stroke Does the patient have a stroke diagnosis?: No VTE Prior VTE?: No VTE Risk Level:: Medical - moderate - high VTE Device Contraindication: Treatment Not Indicated VTE Drug Contraindication: N/A - Med Ordered
--- NOTE | 2022-06-08 17:14 | HE.PHANOTE ---
Patient to be start on an insulin infusion. This order is for ICU/ED/PACU only. Spoke with Dr. Stoner, order is only for while patient is in the emergency department. Order is to be stopped when patient moves up to the inpatient floors.
[2022-06-08 18:29] LABS: Glucose, Whole Blood 344 mg/dL (60-115)
[2022-06-08] MEDS: Dextrose 5 % 1,000 ML 125 ML IVCONT (18:40)
[2022-06-08] MEDS: Insulin Regular, Human 100 UNIT/ML 3 ML VIAL 10 UNIT IVPUSH (18:41)
[2022-06-08] MEDS: Insulin Regular/NS 100 UNIT/100 ML PLAST..BAG IVCONT (18:48)
[2022-06-08 19:50] LABS: Glucose, Whole Blood 322 mg/dL (60-115)
[2022-06-08] MEDS: Apixaban 2.5 MG TABLET G-TUBE (20:51)
[2022-06-08 21:11] LABS: Glucose, Whole Blood 243 mg/dL (60-115)
[2022-06-08 21:14] VITALS: BP 109/46; PULSE 77; RESP 12; TEMP 36.8; O2SAT 97
[2022-06-08 21:57] LABS: Anion Gap 22 (12-20); Blood Urea Nitrogen 132 mg/dL (9-16); Calcium 8.6 mg/dL (8.4-10.2); Carbon Dioxide 33 mmol/L (22-29); Chloride 111 mmol/L (96-108); Creatinine Clr Calc Pharmacy 20.4; Estimated Glomerular Filt Rate 23; Glucose Random 270 mg/dL (60-115); Potassium 4.4 mmol/L (3.3-5.1); Sodium 162 mmol/L (135-145)
[2022-06-08 22:50] LABS: Glucose, Whole Blood 158 mg/dL (60-115)
--- NOTE | 2022-06-08 23:00 | PC.NURSE ---
Addendum entered by Kalli Clark RN 06/09/22 03:51: correction insulin still infusing Original Note: Pt assessed blood sugar 158, Dr. grimes aware, infusing still infusing
[2022-06-09] VITALS (12 sets, daily range): BP systolic 97–141; BP diastolic 35–74; PULSE 77–88; RESP 12–24; TEMP 36.6–37.5; O2SAT 92–98; BMI 22.1
--- NOTE | 2022-06-09 01:47 | PC.NURSE ---
Attempted to call report at 01:47. RN will call back for report.
[2022-06-09] MEDS: Insulin Glargine,Hum.rec.anlog 100 UNIT/ML 10 ML VIAL 10 UNIT SUBCUT (02:42)
[2022-06-09 03:03] LABS: Anion Gap 21 (12-20); Blood Urea Nitrogen 127 mg/dL (9-16); Carbon Dioxide 36 mmol/L (22-29); Chloride 110 mmol/L (96-108); Creatinine Clr Calc Pharmacy 20.1; Estimated Glomerular Filt Rate 23; Glucose Random 41 mg/dL (60-115); Potassium 3.5 mmol/L (3.3-5.1); Sodium 163 mmol/L (135-145)
--- NOTE | 2022-06-09 03:11 | PC.NURSE ---
Per Dr. Desouza, insulin drip has been stopped as of 03:05
--- NOTE | 2022-06-09 03:42 | PC.NURSE ---
Bedside POC noted to be 26 mg/dl. Pt arousable to painful stimuli. Pt medicated with one amp of D50 per verbal order by MD Desouza. Repeat POC 264 mg/dl. D5 infusing @ 125 ml/hr per MD order.
[2022-06-09] MEDS: Dextrose 5 % 1,000 ML 125 ML IVCONT ×2 (03:46→11:54)
[2022-06-09 04:00] LABS: Glucose, Whole Blood 264 mg/dL (60-115)
[2022-06-09 04:00] LABS: Glucose, Whole Blood 26 mg/dL (60-115)
--- NOTE | 2022-06-09 04:37 | PC.NURSE ---
Addendum entered by Terri Callahan RN 06/09/22 05:05: 05:00 Pt still asleep in bed. POC and vitals checked and documented. Pt has been holding O2 saturation so oxygen was decreased to 5 LPM. Pt is maintaining saturation of 96% POC 90 HR 80 O2 96% BP 123/65 Original Note: Pt asleep in bed at this time. POC and vitals have been checked and documented. Pt still on nonrebreather at 12 LPM and D5 drip at 125mL/hr. POC: 97 HR 77 O2 98% zrr 22 BP 99/51
[2022-06-09 04:43] LABS: Glucose, Whole Blood 97 mg/dL (60-115)
[2022-06-09 05:12] LABS: Glucose, Whole Blood 90 mg/dL (60-115)
[2022-06-09 05:36] LABS: Glucose, Whole Blood 78 mg/dL (60-115)
[2022-06-09 06:08] LABS: Glucose, Whole Blood 84 mg/dL (60-115)
[2022-06-09] MEDS: 0.9 % Sodium Chloride 1,000 ML 999 ML IV (06:13)
[2022-06-09 06:29] LABS: Anion Gap 19 (12-20); Blood Urea Nitrogen 125 mg/dL (9-16); Calcium 8.6 mg/dL (8.4-10.2); Carbon Dioxide 35 mmol/L (22-29); Chloride 110 mmol/L (96-108); Creatinine Clr Calc Pharmacy 20.6; Estimated Glomerular Filt Rate 24; Glucose Fasting 87 mg/dL (60-99); Hematocrit 38.1 % (42.0-52.0); Hemoglobin 10.9 g/dl (14.0-18.0); Mean Corpuscular HGB Conc 28.6 g/dl (31.0-36.0); Mean Corpuscular Hemoglobin 26.8 pg (27.0-33.0); Mean Corpuscular Volume 93.8 fL (80.0-98.0); Mean Platelet Volume 12.4 fL (9.4-12.4); Platelet Count 254 X10*3/uL (160-400); Potassium 3.7 mmol/L (3.3-5.1); Red Blood Count 4.06 X10*6/uL (4.60-5.80); Red Cell Distribution Width 18.7 % (11.0-16.0); Sodium 160 mmol/L (135-145)
--- NOTE | 2022-06-09 06:46 | PC.NURSE ---
Pt began to wake up and ask where he was and why he was here. Pt is at his baseline mentation at this time. The floor accepted the patient and report was given. Pt will be transported after shift change.
[2022-06-09 06:56] LABS: Lactic Acid 2.2 mmol/L (0.5-2.0)
[2022-06-09 07:12] LABS: Glucose, Whole Blood 76 mg/dL (60-115)
[2022-06-09] MEDS: Apixaban 2.5 MG TABLET G-TUBE ×2 (07:40→20:15)
--- NOTE | 2022-06-09 08:29 | PC.NURSE ---
patient alert, confused. given morning medication via g-tube. [place] catheter draining yellow urine. denies pain at this time. call lange within reach. bed in lowest locked position for safety
[2022-06-09 08:36] LABS: Reflex Lactate? Lactic Acid Added
--- NOTE | 2022-06-09 08:59 | P.CONNP_ITS ---
History of Present Illness Reason for Consult Consult date: 06/09/22 Chief Complaint Chief complaint: jessica, hyperna, dka History of Present Illness Narrative: 82M PMH CKD III, radiation esophogitis s/p Gtube, presented with AMS. At baseline, patient is alert and oriented times 3, ambulates, though recently requiring walker. overall declining over past few weeks. On day of presentation became very lethargic, confused, 1 episode of diarrhea, brought to ED. in ED noted to be in DKA, hypernatremia, JESSICA, lactic acidosis. Nephrology was co nsulted to assist in his clinical care during his current hospital stay Review of Systems Review of Systems Yes all other systems are reviewed and are negative PMFSH Past Medical History Medical History Atrial fibrillation CHF (congestive heart failure) Diabetes mellitus Hyperlipidemia Throat cancer Family History Family History Mother Cancer Surgical History Surgical History Gastrostomy in place Social History Social History Household Members: Spouse Housing: House Do you presently have visiting nurse or other home services: No Unable to assess alcohol history related to: Unknown Alcohol intake: never Patient Tobacco Use Status: Former Tobacco user Second Hand Smoke Exposure: No Advance Directives: Yes Advance Directives on File: No service: Yes Current occupational status: retired Meds Allergies Allergy/AdvReac Type Severity Reaction Status Date / Time fluconazole AdvReac Rash Verified 09/13/21 21:29 Active Medications: Current Medications Apixaban (Apixaban 2.5 Mg Tablet) 2.5 mg G-TUBE BID [facility] Last Admin: 06/09/22 07:40 Dose: 2.5 mg Glucose (Glucose Gel 15 Gm Gel..Gram.) 15 gm PO Q15M PRN; Protocol PRN Reason: per Hypoglycemia Standing Ord. Dextrose (D5w) 1,000 mls @ 125 mls/hr IVCONT .Q8H [facility] Last Admin: 06/09/22 03:46 Dose: 125 mls/hr Dextrose (D10) 250 mls @ 750 mls/hr IV Q15M PRN; Protocol PRN Reason: per Hypoglycemia Standing Ord. Insulin Human Lispro (Insulin Lispro 100 Unit/Ml 3 Ml Vial) 0 unit SUBCUT Q4H [facility]; Protocol Last Admin: 06/09/22 07:14 Dose: Not Given Pharmacy Consult (Consult Rx Perform Med Rec) 1 each MISCELLANE ONCE PRN PRN Reason: Consult order Sodium Chloride (0.9 % Sodium Chloride Flush 3 Ml Syringe) 3 ml IVFLUSH QSHIFT [facility] Last Admin: 06/09/22 07:48 Dose: Not Given Home Medications Medication Instructions Recorded Confirmed Last Taken Type furosemide 20 mg tablet 1 tab feeding tube DAILY 05/15/22 06/08/22 06/08/22 09:00 History metformin 500 mg tablet 2 tab feeding tube BID 05/15/22 06/08/22 06/08/22 09:00 History apixaban 2.5 mg tablet (Eliquis) 2.5 mg feeding tube BID 06/08/22 06/08/22 06/08/22 09:00 History Physical Exam Vital Signs: Last Vital Signs Temp 98.6 F 06/09/22 04:54 Pulse 81 06/09/22 07:07 Resp 12 06/09/22 07:07 BP 141/60 H 06/09/22 07:07 Pulse Ox 95 06/09/22 07:07 O2 Del Method 06/09/22 07:07 O2 Flow Rate 5 06/09/22 07:07 BMI result Body Mass Index 22.1 Const General: no acute distress Resp Auscultation: diminished lung sounds Cardio Rate: regular rate GI Other: G tube Neuro General: moves all extremities Results Lab Results 06/09/22 05:54 06/09/22 05:54 Lab results: Chemistry 06/08/22 06/08/22 06/09/22 14:16 21:20 02:21 Sodium 159 H 162 H* 163 H* Potassium 5.2 H D 4.4 3.5 D Carbon Dioxide 28 33 H 36 H BUN 137 H 132 H 127 H Creatinine 3.05 H 2.63 H 2.67 H Calcium 9.6 D 8.6 D 9.0 06/09/22 05:54 Sodium 160 H* Potassium 3.7 Carbon Dioxide 35 H BUN 125 H Creatinine 2.61 H Calcium 8.6 Hematology 06/08/22 06/09/22 14:16 05:54 WBC 7.4 7.0 Hgb 12.1 L 10.9 L Plt Count 307 D 254 Urinalysis 06/08/22 14:22 Urine Color Yellow Urine Appearance Cloudy Urine pH 5.5 Ur Specific [place] 1.015 Urine Protein 30 (1+) H Urine Glucose (UA) 100 H Urine Ketones 15 Urine Blood Large (3+) H Urine Nitrite Negative Ur Leukocyte Esterase Negative Urine RBC >20 H Urine WBC 0-5 Ur Squamous Epith Cells 6-10 Hyaline Casts 11-20 Assessment and Plan (1) Acute on chronic renal insufficiency: Status: Acute Plan JESSICA due to tubular injury Has CKD 3 at baseline Has significant water deficit Shall increase D5W to 175 mls/hour Continue rest of current supportive management Time Spent With Patient Time: Total time managing care of this patient today ____ minutes. Procedures Date of Service Date of Service: 06/09/22
[2022-06-09 10:04] LABS: ~Lactic Acid-LAB USE ONLY 2.3 mmol/L (0.5-2.0)
--- NOTE | 2022-06-09 10:18 | HO.PM.IMPN ---
Subjective Subjective Date of Service: 06/09/22 Interval History: more alert, vocalizing that he feels confused Physical Exam Vital Signs: Vital Signs: Last Vital Signs Temp 98.6 F 06/09/22 04:54 Pulse 81 06/09/22 07:07 Resp 12 06/09/22 07:07 BP 141/60 H 06/09/22 07:07 Pulse Ox 95 06/09/22 07:07 O2 Del Method 06/09/22 07:07 O2 Flow Rate 5 06/09/22 07:07 BMI result Body Mass Index 22.1 more alert, answering questions, abd soft Objective Data Active Medications Apixaban (Apixaban 2.5 Mg Tablet) 2.5 mg G-TUBE BID [facility] Last Admin: 06/09/22 07:40 Dose: 2.5 mg Documented By: HERBERT Glucose (Glucose Gel 15 Gm Gel..Gram.) 15 gm PO Q15M PRN; Protocol PRN Reason: per Hypoglycemia Standing Ord. Dextrose (D5w) 1,000 mls @ 175 mls/hr IVCONT .Q5H43M [facility] Last Admin: 06/09/22 03:46 Dose: 125 mls/hr Documented By: SHERRY Dextrose (D10) 250 mls @ 750 mls/hr IV Q15M PRN; Protocol PRN Reason: per Hypoglycemia Standing Ord. Insulin Human Lispro (Insulin Lispro 100 Unit/Ml 3 Ml Vial) 0 unit SUBCUT Q4H [facility]; Protocol Last Admin: 06/09/22 07:14 Dose: Not Given Documented By: HERBERT Non-Admin Reason: No Insulin Coverage Pharmacy Consult (Consult Rx Perform Med Rec) 1 each MISCELLANE ONCE PRN PRN Reason: Consult order Sodium Chloride (0.9 % Sodium Chloride Flush 3 Ml Syringe) 3 ml IVFLUSH QSHIFT [facility] Last Admin: 06/09/22 07:48 Dose: Not Given Documented By: HERBERT Non-Admin Reason: IV Running Labs 06/09/22 05:54 06/09/22 05:54 Labs: Laboratory Results - last 24 hr 06/08/22 06/08/22 06/08/22 14:15 14:15 14:15 MCV MCH MCHC RDW Plt Count MPV Immature Gran % (Auto) Neut % (Auto) Lymph % (Auto) [place] % (Auto) Eos % (Auto) Baso % (Auto) Lymph # (Auto) [place] # (Auto) Eos # (Auto) Baso # (Auto) Abs Immat Gran (auto) Absolute Neuts (auto) Absolute Nucleated RBC Nucleated RBC % (auto) PT INR APTT Anion Gap Estim Creat Clear Calc Estimated GFR POC Glucose Random Glucose Fasting Glucose Lactic Acid 8.3 H* Lactic Acid F/U @ 2Hr Calcium Total Bilirubin Direct Bilirubin AST ALT Alkaline Phosphatase Ammonia 25 Troponin I High Sens B-Natriuretic Peptide Total Protein Albumin Lipase Urine Color Urine Appearance Urine pH Ur Specific [place] Urine Protein Urine Glucose (UA) Urine Ketones Urine Blood Urine Nitrite Ur Leukocyte Esterase Urine RBC Urine WBC Ur Squamous Epith Cells Urine Bacteria Hyaline Casts Influenza Type A (PCR) NEGATIVE Influenza Type B (PCR) NEGATIVE RSV RNA Qual (PCR) NEGATIVE SARS-CoV-2 RNA (RT-PCR) NEGATIVE 06/08/22 06/08/22 06/08/22 14:16 14:16 14:16 MCV 96.7 MCH 26.9 L MCHC 27.9 L RDW 18.6 H Plt Count 307 D MPV 12.1 Immature Gran % (Auto) 0.4 Neut % (Auto) 81.3 H Lymph % (Auto) 6.2 L [place]ak[place] % (Auto) 11.2 H Eos % (Auto) 0.4 Baso % (Auto) 0.5 Lymph # (Auto) 0.5 L [place] # (Auto) 0.8 Eos # (Auto) 0.0 Baso # (Auto) 0.0 Abs Immat Gran (auto) 0.03 Absolute Neuts (auto) 6.1 Absolute Nucleated RBC 0.030 H Nucleated RBC % (auto) 0.4 H PT INR APTT Anion Gap 30 H Estim Creat Clear Calc 17.6 Estimated GFR 20 POC Glucose Random Glucose 446 H* Fasting Glucose Lactic Acid Lactic Acid F/U @ 2Hr Calcium 9.6 D Total Bilirubin 0.8 Direct Bilirubin 0.3 AST 93 H ALT 61 H Alkaline Phosphatase 83 Ammonia Troponin I High Sens 600.4 H* D B-Natriuretic Peptide Total Protein 6.7 Albumin 3.3 L Lipase 33 Urine Color Urine Appearance Urine pH Ur Specific [place] Urine Protein Urine Glucose (UA) Urine Ketones Urine Blood Urine Nitrite Ur Leukocyte Esterase Urine RBC Urine WBC Ur Squamous Epith Cells Urine Bacteria Hyaline Casts Influenza Type A (PCR) Influenza Type B (PCR) RSV RNA Qual (PCR) SARS-CoV-2 RNA (RT-PCR) 06/08/22 06/08/22 06/08/22 14:16 14:16 14:22 MCV MCH MCHC RDW Plt Count MPV Immature Gran % (Auto) Neut % (Auto) Lymph % (Auto) [place] % (Auto) Eos % (Auto) Baso % (Auto) Lymph # (Auto) [place] # (Auto) Eos # (Auto) Baso # (Auto) Abs Immat Gran (auto) Absolute Neuts (auto) Absolute Nucleated RBC Nucleated RBC % (auto) PT 20.3 H INR 1.7 H APTT 30.7 Anion Gap Estim Creat Clear Calc Estimated GFR POC Glucose Random Glucose Fasting Glucose Lactic Acid Lactic Acid F/U @ 2Hr Calcium Total Bilirubin Direct Bilirubin AST ALT Alkaline Phosphatase Ammonia Troponin I High Sens B-Natriuretic Peptide 1945 H Total Protein Albumin Lipase Urine Color Yellow Urine Appearance Cloudy Urine pH 5.5 Ur Specific [place] 1.015 Urine Protein 30 (1+) H Urine Glucose (UA) 100 H Urine Ketones 15 Urine Blood Large (3+) H Urine Nitrite Negative Ur Leukocyte Esterase Negative Urine RBC >20 H Urine WBC 0-5 Ur Squamous Epith Cells 6-10 Urine Bacteria None Seen Hyaline Casts 11-20 Influenza Type A (PCR) Influenza Type B (PCR) RSV RNA Qual (PCR) SARS-CoV-2 RNA (RT-PCR) 06/08/22 06/08/22 06/08/22 18:25 19:46 21:07 MCV MCH MCHC RDW Plt Count MPV Immature Gran % (Auto) Neut % (Auto) Lymph % (Auto) [place] % (Auto) Eos % (Auto) Baso % (Auto) Lymph # (Auto) [place] # (Auto) Eos # (Auto) Baso # (Auto) Abs Immat Gran (auto) Absolute Neuts (auto) Absolute Nucleated RBC Nucleated RBC % (auto) PT INR APTT Anion Gap Estim Creat Clear Calc Estimated GFR POC Glucose 344 H 322 H 243 H Random Glucose Fasting Glucose Lactic Acid Lactic Acid F/U @ 2Hr Calcium Total Bilirubin Direct Bilirubin AST ALT Alkaline Phosphatase Ammonia Troponin I High Sens B-Natriuretic Peptide Total Protein Albumin Lipase Urine Color Urine Appearance Urine pH Ur Specific [place] Urine Protein Urine Glucose (UA) Urine Ketones Urine Blood Urine Nitrite Ur Leukocyte Esterase Urine RBC Urine WBC Ur Squamous Epith Cells Urine Bacteria Hyaline Casts Influenza Type A (PCR) Influenza Type B (PCR) RSV RNA Qual (PCR) SARS-CoV-2 RNA (RT-PCR) 06/08/22 06/08/22 06/09/22 21:20 22:43 02:21 MCV MCH MCHC RDW Plt Count MPV Immature Gran % (Auto) Neut % (Auto) Lymph % (Auto) [place] % (Auto) Eos % (Auto) Baso % (Auto) Lymph # (Auto) [place] # (Auto) Eos # (Auto) Baso # (Auto) Abs Immat Gran (auto) Absolute Neuts (auto) Absolute Nucleated RBC Nucleated RBC % (auto) PT INR APTT Anion Gap 22 H 21 H Estim Creat Clear Calc 20.4 20.1 Estimated GFR 23 POC Glucose 158 H Random Glucose 270 H 41 L* Fasting Glucose Lactic Acid Lactic Acid F/U @ 2Hr Calcium 8.6 D 9.0 Total Bilirubin Direct Bilirubin AST ALT Alkaline Phosphatase Ammonia Troponin I High Sens B-Natriuretic Peptide Total Protein Albumin Lipase Urine Color Urine Appearance Urine pH Ur Specific [place] Urine Protein Urine Glucose (UA) Urine Ketones Urine Blood Urine Nitrite Ur Leukocyte Esterase Urine RBC Urine WBC Ur Squamous Epith Cells Urine Bacteria Hyaline Casts Influenza Type A (PCR) Influenza Type B (PCR) RSV RNA Qual (PCR) SARS-CoV-2 RNA (RT-PCR) 06/09/22 06/09/22 06/09/22 03:37 03:39 04:35 MCV MCH MCHC RDW Plt Count MPV Immature Gran % (Auto) Neut % (Auto) Lymph % (Auto) [place] % (Auto) Eos % (Auto) Baso % (Auto) Lymph # (Auto) [place] # (Auto) Eos # (Auto) Baso # (Auto) Abs Immat Gran (auto) Absolute Neuts (auto) Absolute Nucleated RBC Nucleated RBC % (auto) PT INR APTT Anion Gap Estim Creat Clear Calc Estimated GFR POC Glucose 26 L* 264 H 97 Random Glucose Fasting Glucose Lactic Acid Lactic Acid F/U @ 2Hr Calcium Total Bilirubin Direct Bilirubin AST ALT Alkaline Phosphatase Ammonia Troponin I High Sens B-Natriuretic Peptide Total Protein Albumin Lipase Urine Color Urine Appearance Urine pH Ur Specific [place] Urine Protein Urine Glucose (UA) Urine Ketones Urine Blood Urine Nitrite Ur Leukocyte Esterase Urine RBC Urine WBC Ur Squamous Epith Cells Urine Bacteria Hyaline Casts Influenza Type A (PCR) Influenza Type B (PCR) RSV RNA Qual (PCR) SARS-CoV-2 RNA (RT-PCR) 06/09/22 06/09/22 06/09/22 05:03 05:32 05:54 MCV 93.8 MCH 26.8 L MCHC 28.6 L RDW 18.7 H Plt Count 254 MPV 12.4 Immature Gran % (Auto) Neut % (Auto) Lymph % (Auto) [place] % (Auto) Eos % (Auto) Baso % (Auto) Lymph # (Auto) [place] # (Auto) Eos # (Auto) Baso # (Auto) Abs Immat Gran (auto) Absolute Neuts (auto) Absolute Nucleated RBC 0.000 Nucleated RBC % (auto) 0.0 PT INR APTT Anion Gap Estim Creat Clear Calc Estimated GFR POC Glucose 90 78 Random Glucose Fasting Glucose Lactic Acid Lactic Acid F/U @ 2Hr Calcium Total Bilirubin Direct Bilirubin AST ALT Alkaline Phosphatase Ammonia Troponin I High Sens B-Natriuretic Peptide Total Protein Albumin Lipase Urine Color Urine Appearance Urine pH Ur Specific [place] Urine Protein Urine Glucose (UA) Urine Ketones Urine Blood Urine Nitrite Ur Leukocyte Esterase Urine RBC Urine WBC Ur Squamous Epith Cells Urine Bacteria Hyaline Casts Influenza Type A (PCR) Influenza Type B (PCR) RSV RNA Qual (PCR) SARS-CoV-2 RNA (RT-PCR) 06/09/22 06/09/22 06/09/22 05:54 06:03 06:33 MCV MCH MCHC RDW Plt Count MPV Immature Gran % (Auto) Neut % (Auto) Lymph % (Auto) [place] % (Auto) Eos % (Auto) Baso % (Auto) Lymph # (Auto) [place] # (Auto) Eos # (Auto) Baso # (Auto) Abs Immat Gran (auto) Absolute Neuts (auto) Absolute Nucleated RBC Nucleated RBC % (auto) PT INR APTT Anion Gap 19 Estim Creat Clear Calc 20.6 Estimated GFR 24 POC Glucose 84 Random Glucose Fasting Glucose 87 Lactic Acid 2.2 H* Lactic Acid F/U @ 2Hr Calcium 8.6 Total Bilirubin Direct Bilirubin AST ALT Alkaline Phosphatase Ammonia Troponin I High Sens B-Natriuretic Peptide Total Protein Albumin Lipase Urine Color Urine Appearance Urine pH Ur Specific [place] Urine Protein Urine Glucose (UA) Urine Ketones Urine Blood Urine Nitrite Ur Leukocyte Esterase Urine RBC Urine WBC Ur Squamous Epith Cells Urine Bacteria Hyaline Casts Influenza Type A (PCR) Influenza Type B (PCR) RSV RNA Qual (PCR) SARS-CoV-2 RNA (RT-PCR) 06/09/22 06/09/22 07:05 09:06 MCV MCH MCHC RDW Plt Count MPV Immature Gran % (Auto) Neut % (Auto) Lymph % (Auto) [place] % (Auto) Eos % (Auto) Baso % (Auto) Lymph # (Auto) [place] # (Auto) Eos # (Auto) Baso # (Auto) Abs Immat Gran (auto) Absolute Neuts (auto) Absolute Nucleated RBC Nucleated RBC % (auto) PT INR APTT Anion Gap Estim Creat Clear Calc Estimated GFR POC Glucose 76 Random Glucose Fasting Glucose Lactic Acid Lactic Acid F/U @ 2Hr 2.3 H* Calcium Total Bilirubin Direct Bilirubin AST ALT Alkaline Phosphatase Ammonia Troponin I High Sens B-Natriuretic Peptide Total Protein Albumin Lipase Urine Color Urine Appearance Urine pH Ur Specific [place] Urine Protein Urine Glucose (UA) Urine Ketones Urine Blood Urine Nitrite Ur Leukocyte Esterase Urine RBC Urine WBC Ur Squamous Epith Cells Urine Bacteria Hyaline Casts Influenza Type A (PCR) Influenza Type B (PCR) RSV RNA Qual (PCR) SARS-CoV-2 RNA (RT-PCR) Assessment and Plan (1) Acute on chronic renal insufficiency: Status: Acute Plan 82M PMH CKD III, DM, HLD, throat cancer in remission, radiation esophogitis s/p Gtube, permanent afib, right sided chf, presented with AMS ? Metabolic encephalopathy due to acute kidney injury on CKD 3 and? 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 discussed with family, continue with conservative care including IV medications/fluids and vital signs and labs, will avoid any aggressive treatments Time Spent With Patient Time: Total time managing care of this patient today ____ minutes. Quality Stroke Does the patient have a stroke diagnosis?: No VTE Prior VTE?: No VTE Risk Level:: Medical - moderate - high VTE Device Contraindication: Treatment Not Indicated VTE Drug Contraindication: N/A - Med Ordered
[2022-06-09 11:09] LABS: Reflex Lactate? 2 Y
--- NOTE | 2022-06-09 11:17 | MHC.CM.PN ---
met with pt and his ,prior to admission pt had no servceis ,he is covid vax x 5 if pt dcd home pt will trans[ort ,if pt eval recommendation si for str 1st choice is [facility] if not [facility] where he has been in the past would be 2nd choice dc plan tbd
[2022-06-09 11:39] LABS: Glucose, Whole Blood 84 mg/dL (60-115)
[2022-06-09 16:10] LABS: Glucose, Whole Blood 140 mg/dL (60-115)
[2022-06-09] MEDS: Dextrose 5 % 1,000 ML 175 ML IVCONT ×2 (16:26→22:31)
[2022-06-09 19:00] LABS: Glucose, Whole Blood 179 mg/dL (60-115)
[2022-06-09] MEDS: Insulin Lispro 100 UNIT/ML 3 ML VIAL SUBCUT (20:14)
[2022-06-10 00:26] LABS: Glucose, Whole Blood 229 mg/dL (60-115)
[2022-06-10] MEDS: Insulin Lispro 100 UNIT/ML 3 ML VIAL SUBCUT ×3 (00:40→11:27)
[2022-06-10 03:36] VITALS: BP 125/63; PULSE 87; RESP 20; TEMP 37.1; O2SAT 92
[2022-06-10 03:52] LABS: Glucose, Whole Blood 201 mg/dL (60-115)
[2022-06-10] MEDS: Dextrose 5 % 1,000 ML 175 ML IVCONT ×2 (05:34→11:00)
[2022-06-10 05:55] LABS: Hematocrit 40.9 % (42.0-52.0); Hemoglobin 11.7 g/dl (14.0-18.0); Mean Corpuscular HGB Conc 28.6 g/dl (31.0-36.0); Mean Corpuscular Volume 94.5 fL (80.0-98.0); Mean Platelet Volume 12.6 fL (9.4-12.4); Platelet Count 277 X10*3/uL (160-400); Red Blood Count 4.33 X10*6/uL (4.60-5.80); Red Cell Distribution Width 18.7 % (11.0-16.0); White Blood Count 9.1 X10*3/uL (4.8-10.8)
--- NOTE | 2022-06-10 06:10 | PM.EVENT ---
Event Note Date of Service: 06/10/22 Event Note: increased O2 requirement Will obtain CXR Time Spent With Patient Time: Total time managing care of this patient today ____ minutes.
[2022-06-10 06:21] LABS: Anion Gap 20 (12-20); Blood Urea Nitrogen 97 mg/dL (9-16); Calcium 8.2 mg/dL (8.4-10.2); Carbon Dioxide 31 mmol/L (22-29); Chloride 103 mmol/L (96-108); Creatinine Clr Calc Pharmacy 22.8; Estimated Glomerular Filt Rate 26; Glucose Fasting 195 mg/dL (60-99); Potassium 3.6 mmol/L (3.3-5.1); Sodium 150 mmol/L (135-145)
[2022-06-10 07:34] LABS: Glucose, Whole Blood 212 mg/dL (60-115)
[2022-06-10 08:00] VITALS: BP 134/60; PULSE 84; RESP 22; TEMP 37.1; O2SAT 93
[2022-06-10] MEDS: 0.9 % Sodium Chloride Flush 3 ML SYRINGE IVFLUSH ×2 (08:33→14:58)
[2022-06-10] MEDS: Apixaban 2.5 MG TABLET G-TUBE (08:40)
--- NOTE | 2022-06-10 10:01 | PM.CNPUL ---
History of Present Illness History of Present Illness Consult date: 06/10/22 Chief complaint: jessica, hyperna, dka Narrative: This is an in patient pulmonary consultation. The patient is a 82y/o Male with a PMH of CKD III, DM, HLD, throat cancer in remission, radiation esophogitis s/p Gtube, permanent afib, right sided chf, presented with AMS. at baseline, patient is alert and oriented times 3, ambulates, though recently requiring walker. overall declining over past few weeks. on day of presentation became very lethargic, confused, 1 episode of diarrhea, brought to ED. in ED noted to be in DKA, hypernatremia, JESSICA, lactic acidosis.CT chest demonstrating a moderate right sided pleural effusion. Now CXR with complete whitwe out of the right sylvester thorax. He does have a worsening productive cough and has a hard time clearing his secretions. May have a component of mucus plugging as well. The family is contemplating hospice. Review of Systems Review of Systems: Yes Unobtainable due to mental condition and Unobtainable due to mental status Neurologic: Reports confusion Psychiatric: Psychiatric: Reports confusion PMF Past Medical History Medical History (Updated 06/10/22 @ 12:18 by Ammon Mchugh MD) Acute respiratory failure Aspiration into airway Atrial fibrillation CHF (congestive heart failure) Diabetes mellitus Hyperlipidemia Throat cancer Family History Family History Mother Cancer Surgical History Surgical History Gastrostomy in place Social History Social History Household Members: Spouse Housing: House Do you presently have visiting nurse or other home services: No Unable to assess alcohol history related to: Unknown Alcohol intake: never Patient Tobacco Use Status: Former Tobacco user Second Hand Smoke Exposure: No Currently Displaying Signs/Symptoms of Drug Intoxication Withdrawal: No Advance Directives: Yes Advance Directives on File: No Advance Directives Date on File: 06/09/22 Recently lost weight without trying: Unsure Nutrition Risks: On aspiration precautions service: Yes Current occupational status: retired Meds Allergies Allergy/AdvReac Type Severity Reaction Status Date / Time fluconazole AdvReac Rash Verified 09/13/21 21:29 Active Medications: Current Medications Acetylcysteine (Acetylcysteine 10 % 400 Mg/4 Ml Vial) 400 mg INHALE RBID [facility] Apixaban (Apixaban 2.5 Mg Tablet) 2.5 mg G-TUBE BID [facility] Last Admin: 06/10/22 08:40 Dose: 2.5 mg Glucose (Glucose Gel 15 Gm Gel..Gram.) 15 gm PO Q15M PRN; Protocol PRN Reason: per Hypoglycemia Standing Ord. Dextrose (D5w) 1,000 mls @ 175 mls/hr IVCONT .Q5H43M [facility] Last Admin: 06/10/22 05:34 Dose: 175 mls/hr Dextrose (D10) 250 mls @ 750 mls/hr IV Q15M PRN; Protocol PRN Reason: per Hypoglycemia Standing Ord. Insulin Human Lispro (Insulin Lispro 100 Unit/Ml 3 Ml Vial) 0 unit SUBCUT Q4H [facility]; Protocol Last Admin: 06/10/22 08:33 Dose: 4 unit Pharmacy Consult (Consult Rx Perform Med Rec) 1 each MISCELLANE ONCE PRN PRN Reason: Consult order Sodium Chloride (0.9 % Sodium Chloride Flush 3 Ml Syringe) 3 ml IVFLUSH QSHIFT [facility] Last Admin: 06/10/22 08:33 Dose: 3 ml Home Medications Medication Instructions Recorded Confirmed Last Taken Type furosemide 20 mg tablet 1 tab feeding tube DAILY 05/15/22 06/08/22 06/08/22 09:00 History metformin 500 mg tablet 2 tab feeding tube BID 05/15/22 06/08/22 06/08/22 09:00 History apixaban 2.5 mg tablet (Eliquis) 2.5 mg feeding tube BID 06/08/22 06/08/22 06/08/22 09:00 History Physical Exam Vital Signs: Vital Signs: Last Vital Signs Temp 98.7 F 06/10/22 08:00 Pulse 84 06/10/22 08:00 Resp 22 H 06/10/22 08:00 BP 134/60 06/10/22 08:00 Pulse Ox 93 06/10/22 08:00 O2 Del Method 06/10/22 08:00 O2 Flow Rate 10 06/10/22 08:00 BMI result Body Mass Index 22.1 Const: General: confusion and ill appearing Orientation/consciousness: confusion HEENT: Other: Unremarkable Head: Yes normal to inspection Neck: Neck: Yes supple Chest: Chest palpation & inspection: normal inspection of the chest Resp: Effort & Inspection: decreased respiratory effort Auscultation: diminished lung sounds Cardio: Heart sounds: S1 normal heart sound present, S2 normal heart sound present, no gallops, no murmurs and no rubs GI: Palpation (GI): Soft to palpation Back/Spine/Pelvis: Other: unremarkable Skin: General skin exam: no rashes or lesions noted Neuro: General: confusion Extrem: General: No cyanosis Psych: Mental Status: mental status grossly normal Results Laboratory Findings 06/10/22 05:29 06/10/22 05:29 ABG, PT/INR, D-dimer: PT/INR, D-dimer PT 20.3 SEC (10.0-13.1) H 06/08/22 14:16 INR 1.7 (0.9-1.1) H 06/08/22 14:16 Abnormal lab findings: Abnormal Labs 06/08/22 06/08/22 06/08/22 14:15 14:16 14:16 RBC 4.49 L Hgb 12.1 L Hct MCH 26.9 L MCHC 27.9 L RDW 18.6 H MPV Neut % (Auto) 81.3 H Lymph % (Auto) 6.2 L [place] % (Auto) 11.2 H Lymph # (Auto) 0.5 L Absolute Nucleated RBC 0.030 H Nucleated RBC % (auto) 0.4 H PT INR Sodium 159 H Potassium 5.2 H D Chloride Carbon Dioxide Anion Gap 30 H BUN 137 H Creatinine 3.05 H POC Glucose Random Glucose 446 H* Fasting Glucose Lactic Acid 8.3 H* Lactic Acid F/U @ 2Hr Calcium AST 93 H ALT 61 H Troponin I High Sens B-Natriuretic Peptide Albumin 3.3 L Urine Protein Urine Glucose (UA) Urine Blood Urine RBC 06/08/22 06/08/22 06/08/22 14:16 14:16 14:16 RBC Hgb Hct MCH MCHC RDW MPV Neut % (Auto) Lymph % (Auto) [place] % (Auto) Lymph # (Auto) Absolute Nucleated RBC Nucleated RBC % (auto) PT 20.3 H INR 1.7 H Sodium Potassium Chloride Carbon Dioxide Anion Gap BUN Creatinine POC Glucose Random Glucose Fasting Glucose Lactic Acid Lactic Acid F/U @ 2Hr Calcium AST ALT Troponin I High Sens 600.4 H* D B-Natriuretic Peptide 1945 H Albumin Urine Protein Urine Glucose (UA) Urine Blood Urine RBC 06/08/22 06/08/22 06/08/22 14:22 18:25 19:46 RBC Hgb Hct MCH MCHC RDW MPV Neut % (Auto) Lymph % (Auto) [place] % (Auto) Lymph # (Auto) Absolute Nucleated RBC Nucleated RBC % (auto) PT INR Sodium Potassium Chloride Carbon Dioxide Anion Gap BUN Creatinine POC Glucose 344 H 322 H Random Glucose Fasting Glucose Lactic Acid Lactic Acid F/U @ 2Hr Calcium AST ALT Troponin I High Sens B-Natriuretic Peptide Albumin Urine Protein 30 (1+) H Urine Glucose (UA) 100 H Urine Blood Large (3+) H Urine RBC >20 H 06/08/22 06/08/22 06/08/22 21:07 21:20 22:43 RBC Hgb Hct MCH MCHC RDW MPV Neut % (Auto) Lymph % (Auto) [place] % (Auto) Lymph # (Auto) Absolute Nucleated RBC Nucleated RBC % (auto) PT INR Sodium 162 H* Potassium Chloride 111 H Carbon Dioxide 33 H Anion Gap 22 H BUN 132 H Creatinine 2.63 H POC Glucose 243 H 158 H Random Glucose 270 H Fasting Glucose Lactic Acid Lactic Acid F/U @ 2Hr Calcium AST ALT Troponin I High Sens B-Natriuretic Peptide Albumin Urine Protein Urine Glucose (UA) Urine Blood Urine RBC 06/09/22 06/09/22 06/09/22 02:21 03:37 03:39 RBC Hgb Hct MCH MCHC RDW MPV Neut % (Auto) Lymph % (Auto) [place] % (Auto) Lymph # (Auto) Absolute Nucleated RBC Nucleated RBC % (auto) PT INR Sodium 163 H* Potassium Chloride 110 H Carbon Dioxide 36 H Anion Gap 21 H BUN 127 H Creatinine 2.67 H POC Glucose 26 L* 264 H Random Glucose 41 L* Fasting Glucose Lactic Acid Lactic Acid F/U @ 2Hr Calcium AST ALT Troponin I High Sens B-Natriuretic Peptide Albumin Urine Protein Urine Glucose (UA) Urine Blood Urine RBC 06/09/22 06/09/22 06/09/22 05:54 05:54 06:33 RBC 4.06 L Hgb 10.9 L Hct 38.1 L MCH 26.8 L MCHC 28.6 L RDW 18.7 H MPV Neut % (Auto) Lymph % (Auto) [place] % (Auto) Lymph # (Auto) Absolute Nucleated RBC Nucleated RBC % (auto) PT INR Sodium 160 H* Potassium Chloride 110 H Carbon Dioxide 35 H Anion Gap BUN 125 H Creatinine 2.61 H POC Glucose Random Glucose Fasting Glucose Lactic Acid 2.2 H* Lactic Acid F/U @ 2Hr Calcium AST ALT Troponin I High Sens B-Natriuretic Peptide Albumin Urine Protein Urine Glucose (UA) Urine Blood Urine RBC 06/09/22 06/09/22 06/09/22 09:06 15:36 18:56 RBC Hgb Hct MCH MCHC RDW MPV Neut % (Auto) Lymph % (Auto) [place] % (Auto) Lymph # (Auto) Absolute Nucleated RBC Nucleated RBC % (auto) PT INR Sodium Potassium Chloride Carbon Dioxide Anion Gap BUN Creatinine POC Glucose 140 H 179 H Random Glucose Fasting Glucose Lactic Acid Lactic Acid F/U @ 2Hr 2.3 H* Calcium AST ALT Troponin I High Sens B-Natriuretic Peptide Albumin Urine Protein Urine Glucose (UA) Urine Blood Urine RBC 06/10/22 06/10/22 06/10/22 00:21 03:46 05:29 RBC 4.33 L Hgb 11.7 L Hct 40.9 L MCH MCHC 28.6 L RDW 18.7 H MPV 12.6 H Neut % (Auto) Lymph % (Auto) [place] % (Auto) Lymph # (Auto) Absolute Nucleated RBC Nucleated RBC % (auto) PT INR Sodium Potassium Chloride Carbon Dioxide Anion Gap BUN Creatinine POC Glucose 229 H 201 H Random Glucose Fasting Glucose Lactic Acid Lactic Acid F/U @ 2Hr Calcium AST ALT Troponin I High Sens B-Natriuretic Peptide Albumin Urine Protein Urine Glucose (UA) Urine Blood Urine RBC 06/10/22 06/10/22 05:29 07:21 RBC Hgb Hct MCH MCHC RDW MPV Neut % (Auto) Lymph % (Auto) [place] % (Auto) Lymph # (Auto) Absolute Nucleated RBC Nucleated RBC % (auto) PT INR Sodium 150 H Potassium Chloride Carbon Dioxide 31 H Anion Gap BUN 97 H Creatinine 2.36 H POC Glucose 212 H Random Glucose Fasting Glucose 195 H Lactic Acid Lactic Acid F/U @ 2Hr Calcium 8.2 L AST ALT Troponin I High Sens B-Natriuretic Peptide Albumin Urine Protein Urine Glucose (UA) Urine Blood Urine RBC Microbiology: Microbiology 06/08/22 15:05 Blood - Venous Blood Culture - Preliminary No growth after 24 hours. 06/08/22 14:15 Blood - Venous Blood Culture - Preliminary No growth after 24 hours. Assessment and Plan (1) Acute respiratory failure: Status: Acute (2) Pleural effusion: Status: Acute (3) Throat cancer: Status: Acute (4) Mucus plugging of bronchi: Status: Acute (5) Aspiration into airway: Status: Acute Plan Should undergo a therapeutic throracentesis Start Trial of mucomyst BID along with albuterol nebs x 2-3 days Start chlorhexadine mouthwash to minimize aspiration pneumonia consider prophylactic antibiotics Guarded condition I support the idea of hospice. Goals of care. Currently DNR Time Spent With Patient Time: Total time managing care of this patient today ____ minutes. Procedures Date of Service Date of Service: 06/10/22
--- NOTE | 2022-06-10 11:01 | P.PNIM_ITS ---
Subjective Subjective Date of Service: 06/10/22 Interval History: became more hypoxic overnight Physical Exam Vital Signs: Vital Signs: Last Vital Signs Temp 98.7 F 06/10/22 08:00 Pulse 84 06/10/22 08:00 Resp 22 H 06/10/22 08:00 BP 134/60 06/10/22 08:00 Pulse Ox 93 06/10/22 08:00 O2 Del Method 06/10/22 08:00 O2 Flow Rate 10 06/10/22 08:00 BMI result Body Mass Index 22.1 frail, ill appearing, decreased air movement on right, bilateral ronchi Objective Data Active Medications Acetylcysteine (Acetylcysteine 10 % 400 Mg/4 Ml Vial) 400 mg INHALE RBID [facility] Apixaban (Apixaban 2.5 Mg Tablet) 2.5 mg G-TUBE BID [facility] Last Admin: 06/10/22 08:40 Dose: 2.5 mg Documented By: CHANG Glucose (Glucose Gel 15 Gm Gel..Gram.) 15 gm PO Q15M PRN; Protocol PRN Reason: per Hypoglycemia Standing Ord. Dextrose (D5w) 1,000 mls @ 175 mls/hr IVCONT .Q5H43M [facility] Last Admin: 06/10/22 11:00 Dose: 175 mls/hr Documented By: CHANG Dextrose (D10) 250 mls @ 750 mls/hr IV Q15M PRN; Protocol PRN Reason: per Hypoglycemia Standing Ord. Insulin Human Lispro (Insulin Lispro 100 Unit/Ml 3 Ml Vial) 0 unit SUBCUT Q4H [facility]; Protocol Last Admin: 06/10/22 08:33 Dose: 4 unit Documented By: CHANG Pharmacy Consult (Consult Rx Perform Med Rec) 1 each MISCELLANE ONCE PRN PRN Reason: Consult order Sodium Chloride (0.9 % Sodium Chloride Flush 3 Ml Syringe) 3 ml IVFLUSH QSHIFT [facility] Last Admin: 06/10/22 08:33 Dose: 3 ml Documented By: CHANG Labs 06/10/22 05:29 06/10/22 05:29 Labs: Laboratory Results - last 24 hr 06/09/22 06/09/22 06/09/22 11:33 15:36 18:56 MCV MCH MCHC RDW Plt Count MPV Absolute Nucleated RBC Nucleated RBC % (auto) Anion Gap Estim Creat Clear Calc Estimated GFR POC Glucose 84 140 H 179 H Fasting Glucose Calcium 06/10/22 06/10/22 06/10/22 00:21 03:46 05:29 MCV 94.5 MCH 27.0 MCHC 28.6 L RDW 18.7 H Plt Count 277 MPV 12.6 H Absolute Nucleated RBC 0.000 Nucleated RBC % (auto) 0.0 Anion Gap Estim Creat Clear Calc Estimated GFR POC Glucose 229 H 201 H Fasting Glucose Calcium 06/10/22 06/10/22 05:29 07:21 MCV MCH MCHC RDW Plt Count MPV Absolute Nucleated RBC Nucleated RBC % (auto) Anion Gap 20 Estim Creat Clear Calc 22.8 Estimated GFR 26 POC Glucose 212 H Fasting Glucose 195 H Calcium 8.2 L Microbiology Microbiology Results: Microbiology 06/08/22 15:05 Blood Culture - Preliminary Blood - Venous No growth after 24 hours. 06/08/22 14:15 Blood Culture - Preliminary Blood - Venous No growth after 24 hours. Assessment and Plan (1) Acute on chronic renal insufficiency: Status: Acute Plan 82M PMH CKD III, DM, HLD, throat cancer in remission, radiation esophogitis s/p Gtube, permanent afib, right sided chf, presented with AMS ? Metabolic encephalopathy due to acute kidney injury on CKD 3 and? severe hypernatremia ?given 2 L normal saline, now on D5W -175cc/hr, monitor BMP - improved sodium to 150 nephro following acute hypoxic respiratory failure secondary to right pleural effusion and mucus plugging inhaled mucolytics therapeutic thoracentesis wean O2 as tolerated ?dm diabetic ketoacidosis gap closed continue inusling sliding scale ?permanent atrial fibrillation eliquis ?radiation esophagitis due to treatment for throat cancer now in remission ?nutrition eval for G-tube feeds ?chronic right-sided CHF monitor closely ?DVT prophylaxis with Eliquis ?DNR/DNI -? discussed with family, continue with conservative care including IV medications/fluids and vital signs and labs, will avoid any aggressive treatments Time Spent With Patient Time: Total time managing care of this patient today ____ minutes. Quality Stroke Does the patient have a stroke diagnosis?: No VTE Prior VTE?: No VTE Risk Level:: Medical - moderate - high VTE Device Contraindication: Treatment Not Indicated VTE Drug Contraindication: N/A - Med Ordered
--- NOTE | 2022-06-10 11:10 | PM.PNNEP ---
Subjective Subjective Date of Service: 06/10/22 Interval history: Events noted Family at bedside Physical Exam Vital Signs: Vital Signs: Last Vital Signs Temp 98.7 F 06/10/22 08:00 Pulse 84 06/10/22 08:00 Resp 22 H 06/10/22 08:00 BP 134/60 06/10/22 08:00 Pulse Ox 93 06/10/22 08:00 O2 Del Method 06/10/22 08:00 O2 Flow Rate 10 06/10/22 08:00 BMI result Body Mass Index 22.1 Const: General: no acute distress Resp: Auscultation: diminished lung sounds Cardio: Rate: regular rate GI: Other: G tube Neuro: General: moves all extremities Objective Data Labs 06/10/22 05:29 06/10/22 05:29 Labs: Laboratory Results - last 24 hr 06/09/22 06/09/22 06/09/22 11:33 15:36 18:56 WBC RBC Hgb Hct MCV MCH MCHC RDW Plt Count MPV Absolute Nucleated RBC Nucleated RBC % (auto) Sodium Potassium Chloride Carbon Dioxide Anion Gap BUN Creatinine Estim Creat Clear Calc Estimated GFR POC Glucose 84 140 H 179 H Fasting Glucose Calcium 06/10/22 06/10/22 06/10/22 00:21 03:46 05:29 WBC 9.1 RBC 4.33 L Hgb 11.7 L Hct 40.9 L MCV 94.5 MCH 27.0 MCHC 28.6 L RDW 18.7 H Plt Count 277 MPV 12.6 H Absolute Nucleated RBC 0.000 Nucleated RBC % (auto) 0.0 Sodium Potassium Chloride Carbon Dioxide Anion Gap BUN Creatinine Estim Creat Clear Calc Estimated GFR POC Glucose 229 H 201 H Fasting Glucose Calcium 06/10/22 06/10/22 05:29 07:21 WBC RBC Hgb Hct MCV MCH MCHC RDW Plt Count MPV Absolute Nucleated RBC Nucleated RBC % (auto) Sodium 150 H Potassium 3.6 Chloride 103 Carbon Dioxide 31 H Anion Gap 20 BUN 97 H Creatinine 2.36 H Estim Creat Clear Calc 22.8 Estimated GFR 26 POC Glucose 212 H Fasting Glucose 195 H Calcium 8.2 L Microbiology Microbiology Results: Microbiology 06/08/22 15:05 Blood - Venous Blood Culture - Preliminary No growth after 24 hours. 06/08/22 14:15 Blood - Venous Blood Culture - Preliminary No growth after 24 hours. Procedures Date of Service Date of Service: 06/10/22 Assessment & Plan Assessment and plan (1) Acute on chronic renal insufficiency: Status: Acute Plan JESSICA due to tubular injury Has CKD 3 at baseline Has significant water deficit Keep D5W until we are able to use G tube Continue rest of current supportive management Time Spent With Patient Time: Total time managing care of this patient today ____ minutes. Progress Note: Quality Stroke Does the patient have a stroke diagnosis?: No
[2022-06-10 11:17] LABS: Glucose, Whole Blood 251 mg/dL (60-115)
[2022-06-10 12:00] VITALS: BP 129/59; PULSE 84; RESP 22; TEMP 36.9; O2SAT 91
[2022-06-10] MEDS: Morphine Sulfate 2 MG/ML CARTRIDGE 1 MG IVPUSH (12:01)
--- NOTE | 2022-06-10 12:27 | PC.NURSE ---
Pt alert and oriented x2-3 but is unable to vocalize at normal speech. Pt suctioned at 0900 and at 12pm. Thick yellow/whitish sputum noted. Pt continues on D5 running at 175ml/hr. Pt also received Morphine 1mg for comfort. Noted skin breakdown on the right houlder measuring 0.3x0.3x0.1 and right back measuring 0.5x0.5x0.1. Foam dressing applied. Heel boots also applied due to redness noted to bilateral heels.
[2022-06-10 12:31] VITALS: BMI 22.1
--- NOTE | 2022-06-10 12:36 | MHC.CLN ---
RE: CONSULT PT IS CURRENTLY NPO PT HAS GTUBE IN PLACE RECOMMEND GLUCERNA AT MAX GOAL RATE 85ML/HR WITH 240ML FREE WATER FLUSHES Q 8 HRS TO PROVIDE 2040KCLAS (30KCALS/KG), 85G PROTEIN (1.25G/KG), 2460ML TOTAL WATER FROM FORMULA AND FLUSHES (36ML/KG) START FORMULA AT 20ML/HR AND INCREASE BY 10ML Q 4 HRS UNTIL MAX GOAL IS ACHIEVED MONITOR TOLERANCE, RESIDUALS AND LYTES WILL DISCUSS WITH FAMILY TF OPTIONS FOR HOME UPON DISCHARGE
--- NOTE | 2022-06-10 12:49 | W.MHC.ACPN ---
Advanced Care Planning Note Advanced Care Planning Note Discussed with: patient and family member(s) Time spent (in minutes): 17 Narrative: Discussed at bedside with patient's and children regarding diagnosis of acute hypoxic respiratory failure secondary to mucus plugging and pleural effusion as well as metabolic encephalopathy due to hypernatremia in JESSICA. given worsening hypoxia and worsening mental status today and patient's previous expressed wishes of avoiding hospital level care and aggressive treatments family has decided to transition patient to comfort measures only. Will discontinue all non comfort related treatments such as oxygen, IV fluids. Will focus on comfort with morphine, scopolamine Problems Discussed (1) Acute respiratory failure: (2) Pleural effusion: (3) Throat cancer: (4) Mucus plugging of bronchi: (5) Aspiration into airway:
[2022-06-10] MEDS: Morphine Sulfate 2 MG/ML CARTRIDGE IVPUSH ×2 (13:23→14:58)
--- NOTE | 2022-06-10 14:27 | PC.NURSE ---
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 IVF discontinued and pt started on Morphine and scopaline patch ordered.
[2022-06-10] MEDS: Scopolamine 1.5 MG PATCH.TD.3 EAR-BEHIND (14:57)
[2022-06-10 15:03] VITALS: RESP 22
--- NOTE | 2022-06-10 15:45 | PM.DDS ---
Discharge Sum: Prov Provider Primary care physician: MOODY Maki Consults: 06/08/22 16:42 Consult to Nephrology Routine Consulting Provider: Torito Hines Reason for consultation: jessica, hyperna 06/10/22 09:08 Consult to Pulmonology Routine Consulting Provider: Ammon Mchugh Reason for consultation: mucus plug Discharge Sum: Diag Contributing Factors (1) Acute respiratory failure: (2) Pleural effusion: (3) Throat cancer: (4) Mucus plugging of bronchi: (5) Aspiration into airway: Discharge Sum: Summary Date and Time Date of admission: 06/08/22 16:46 Summary Details: from initial hpi: 82M PMH CKD III, DM, HLD, throat cancer in remission, radiation esophogitis s/p Gtube, permanent afib, right sided chf, presented with AMS. at baseline, patient is alert and oriented times 3, ambulates, though recently requiring walker. overall declining over past few weeks. on day of presentation became very lethargic, confused, 1 episode of diarrhea, brought to ED. in ED noted to be in DKA, hypernatremia, JESSICA, lactic acidosis. hospital course: Patient was admitted for metabolic encephalopathy due to acute kidney injury on CKD 3 and severe hypernatremia. He was given IV hydration with isotonic fluids followed by hypotonic fluids with improvement in sodium. Also noted to have diabetes with ketoacidosis and was treated with insulin drip, anion gap closed and was transitioned to sliding scale. For permanent atrial fibrillation he was continued on Eliquis. For radiation esophagitis due to treatment for thoraco answer now in remission he has gastrostomy tube. For chronic right-sided CHF he was hypovolemic on admission so was given IV fluids. Initially patient had some improvement, however, was then complicated by acute hypoxic respiratory failure secondary to right pleural effusion and mucus plugging. Discussion was had with family and due to patient's overall poor prognosis and previously express personal wishes patient was made comfort measures only. Patient was made comfortable and at 03:37 on 06/10/2022. Additional Data Attending physician: Dylon Stoner MD
--- NOTE | 2022-06-10 17:42 | PC.NURSE ---
At 15:25 pt stopped breathing and on pulse , apical pulse verified by 2 RN's . Immediate family at the bedside present at the pt's passing. Dr Stoner was notified , organ bank called in a timely manner and the case was dismissed
== END 2022-06-10 18:26 | disposition expired | DRG 682 ==
LOC: HO.ED 16:25 → HO.EDOVER 23:12 → HO.IMC 06-09 04:44
PROVIDERS: Student in an Organized Health Care Education/Training Program; Admitting Provider Internal Medicine; Emergency Provider Emergency Medicine; PCP Physician Assistant Medical; Visit Provider Internal Medicine
DX: N17.9 Acute kidney failure, unspecified (principal); E11.10 Type 2 diabetes mellitus with ketoacidosis without coma; G93.41 Metabolic encephalopathy; J96.01 Acute respiratory failure with hypoxia; I48.21 Permanent atrial fibrillation; E87.0 Hyperosmolality and hypernatremia; J90 Pleural effusion, not elsewhere classified; E11.22 Type 2 diabetes mellitus with diabetic chronic kidney disease; N18.30 Chronic kidney disease, stage 3 unspecified; E86.0 Dehydration; E78.5 Hyperlipidemia, unspecified; Z20.822 Contact with and (suspected) exposure to COVID-19; Z88.8 Allergy status to other drugs, medicaments and biological substances; Z66 Do not resuscitate; Z79.01 Long term (current) use of anticoagulants; K20.80 Other esophagitis without bleeding; I50.812 Chronic right heart failure; J98.09 Other diseases of bronchus, not elsewhere classified; Y84.2 Radiological procedure and radiotherapy as the cause of abnormal reaction of the patient, or of later complication, without mention of misadventure at the time of the procedure; Z93.1 Gastrostomy status; Z85.21 Personal history of malignant neoplasm of larynx; Z92.3 Personal history of irradiation; Z79.84 Long term (current) use of oral hypoglycemic drugs; Z79.899 Other long term (current) drug therapy
CPT/HCPCS: 0241U; 36415; 70450; 71045; 80048; 80076; 81001; 82140; 82947; 83605; 83690; 83880; 84484; 85025; 85027; 85610; 85730; 87040; 93005; 99285; J2270